=== PATIENT | female | born 1935 | race Caucasian/White ===

== ENCOUNTER 2017-03-27 19:07 | Inpatient (IN) | payer MEDICARE, BC ==
[~2017-03-27] VITALS: Ht 157.5 cm; Wt 66.0 kg
[~2017-03-27 19:07] MED LIST: ADVAIR 250-501 EACH BU; ALBUTEROL0.63 MG/3 INH; AMLODIPINE BESY10 MG PO; CALTRATE-600 W1 EAC1 PO; CLARITHROMYCIN500 MG PO; COMBIGAN EYE DRO5 ML; DOXYCYCLINE HY100 MG PO; LEVAQUIN500 MG PO; MONTELUKAST SOD10 MG PO; MULTI-DAY VITA1 EACH PO; NEXIUM40 MG PO; PREDNISONE10 M1 PO; PREDNISONE5 MG PO; PROAIR HFA INH8.5 GM INH; SYNTHROID50 MCG PO; XALATAN2.5 ML
[2017-03-27] MEDS ORDERED: ALBUTEROL SULF 0.083% NEB SOLN 3 ML NEB NEB STA (19:36)
[2017-03-27] MEDS ORDERED: SODIUM CHLORIDE 0.9% 1000ML 1,000 ML IV ONE (19:45)
[2017-03-27] MEDS ORDERED: IPRATROPIUM BROMIDE 0.02% 2.5 ML NEB NEB ONE (19:45)
[2017-03-27 20:21] LABS: BASOPHILS # (AUTO) 0.1 (0.0-0.1); BASOPHILS % 0.7 % (0.0-1.0); EOSINOPHILS # (AUTO) 0.5 (0.0-0.4); EOSINOPHILS % 5.2 % (0.0-6.0); HEMATOCRIT 39.4 % (34.2-44.1); HEMOGLOBIN 13.3 g/dL (12.0-16.0); LYMPHOCYTES # (AUTO) 1.5 (1.0-3.2); LYMPHOCYTES % 15.7 % (18.0-39.1); MEAN CORPUSCULAR HEMOGLOBIN 31.4 pg (28-32); MEAN CORPUSCULAR HGB CONC 33.8 g/dL (31-35); MEAN CORPUSCULAR VOLUME 93.1 fL (81-99); MONOCYTES # (AUTO) 1.5 (0.2-0.8); NEUTROPHILS # (AUTO) 6.2 (2.1-6.9); NEUTROPHILS % 63.1 % (38.7-80.0); PLATELET COUNT 218 x10e3/uL (140-360); RED BLOOD COUNT 4.23 x10e6/uL (3.6-5.1); RED CELL DISTRIBUTION WIDTH 14.9 % (11.7-14.4)
[2017-03-27 20:37] LABS: ALBUMIN 3.5 g/dL (3.5-5.0); ALBUMIN/GLOBULIN RATIO 0.7 (0.8-2.0); ANION GAP 13.9 mmol/L (8-16); CALCIUM 9.3 mg/dL (8.4-10.2); CREATININE, SERUM 1.71 mg/dL (0.57-1.11); POTASSIUM 3.9 mmol/L (3.5-5.1)
[2017-03-27 20:44] LABS: CREATINE KINASE MB 1.9 ng/mL (0.00-5.00); TROPONIN I 0.063 ng/mL (0-0.300)
[2017-03-27] MEDS ORDERED: METHYLPREDNISOLONE SOD SUCC 125 MG/2ML VIAL IV SCH (21:00)
--- NOTE | 2017-03-27 21:32 | Diagnostic Imaging Report ---
EXAM: CHEST SINGLE (PORTABLE), AP 1 view DATE: 03/27/2017 7:36 PM Time stamp on exam: 2024 INDICATION: Shortness of breath COMPARISON: AP view of the chest June 20, 2016 FINDINGS: LINES/TUBES: None LUNGS: Scattered bilateral reticulonodular changes. PLEURA: No effusions or pneumothorax. HEART AND MEDIASTINUM: Normal size and contour. BONES AND SOFT TISSUES: No acute findings. IMPRESSION: Nonspecific scattered bilateral reticulonodular changes. This could represent atypical infection in the appropriate clinical setting or chronic interstitial lung disease. Signed by: Dr. Sarah See M.D. on 03/27/2017 9:28 PM
[2017-03-27] MEDS: AZITHROMYCIN 500MG/SOD CHL 0.9% 250ML BAG IV SCH (22:13)
[2017-03-27] MEDS: CEFTRIAXONE SOD 1 GM VIAL IV SCH (22:13)
[2017-03-27] MEDS: SODIUM CHLORIDE 0.9% 1000ML 1,000 ML IV SCH (22:14)
[2017-03-28] VITALS (7 sets, daily range): BP systolic 137–160; BP diastolic 63–79
[2017-03-28] MEDS ORDERED: IPRATROPIUM BROMIDE 0.02% 2.5 ML NEB NEB SCH
[2017-03-28] MEDS: ALBUTEROL SULF 0.083% NEB SOLN 3 ML NEB NEB SCH ×4 (04:45→20:00)
[2017-03-28] MEDS: IPRATROPIUM BROMIDE 0.02% 2.5 ML NEB NEB SCH ×4 (04:45→20:00)
--- NOTE | 2017-03-28 06:16 | Diagnostic Imaging Report ---
EXAM: CHEST SINGLE (PORTABLE), AP 1 view DATE: 03/28/2017 5:00 AM Time stamp on exam: 0545 hours INDICATION: Pneumonia COMPARISON: AP view of the chest March 27, 2017 FINDINGS: LINES/TUBES: None LUNGS: Scattered bilateral reticulonodular changes PLEURA: No effusions or pneumothorax. HEART AND MEDIASTINUM: Normal size and contour. BONES AND SOFT TISSUES: No acute findings. IMPRESSION: No interval change. Signed by: Dr. Sarah See M.D. on 03/28/2017 6:12 AM
[2017-03-28] MEDS ORDERED: ACETAMINOPHEN 325 MG TAB PO PRN (06:45)
[2017-03-28] MEDS: SODIUM CHLORIDE 0.9% 1000ML 1,000 ML IV SCH ×2 (06:52→21:01)
[2017-03-28 07:12] LABS: TROPONIN I 0.041 ng/mL (0-0.300)
[2017-03-28] MEDS: METHYLPREDNISOLONE SOD SUCC 40 MG/ML VIAL IV SCH ×2 (09:00→21:15)
[2017-03-28] MEDS ORDERED: MINERALS PO SCH (09:00)
[2017-03-28] MEDS ORDERED: LEVOTHYROXINE SODIUM 50 MCG TAB PO SCH (09:00)
[2017-03-28] MEDS ORDERED: [UNRECOGNIZED DRUG - OTHER] PO SCH (09:00)
[2017-03-28] MEDS: AMLODIPINE BESYLATE 10 MG TAB PO SCH (09:00)
[2017-03-28] MEDS: MONTELUKAST SODIUM 10 MG TAB PO SCH (09:00)
[2017-03-28] MEDS ORDERED: VIT D3 PO SCH (09:00)
[2017-03-28] MEDS ORDERED: METHYLPREDNISOLONE SOD SUCC 125 MG/2ML VIAL IV SCH (09:00)
[2017-03-28] MEDS ORDERED: CALCIUM CARB PO SCH (09:00)
[2017-03-28] MEDS: BRIMONIDINE/TIMOLOL (OPTH SOLN 5 ML DRPETTE OP SCH ×2 (09:00→16:37)
[2017-03-28] MEDS: OYST-CAL-D 500MG TABLET PO SCH ×2 (09:00→17:00)
[2017-03-28] MEDS ORDERED: VIT D PO SCH (09:00)
[2017-03-28] MEDS: NYSTATIN SUSPENSION 5 ML UDC PO SCH (09:00)
[2017-03-28] MEDS: HEPARIN SOD (PORCINE) 5,000 UNIT/ML VIAL SC SCH ×2 (09:00→21:15)
[2017-03-28] MEDS: PANTOPRAZOLE SOD 40 MG TABEC PO SCH ×2 (09:00→17:00)
--- NOTE | 2017-03-28 09:10 | Consultation ---
DATE OF CONSULTATION: March 28, 2017 PULMONARY CONSULTATION A [facility] 81-year-old woman admitted with cough productive of white sputum and shortness of breath. She has been ill for approximately 2 weeks. Initially, improved with steroids and doxycycline, and then became worse when the cold weather came in. She has a history of COPD, history of asthma in her youth, which resolved in her 20s. She uses nocturnal oxygen. She has a history of glaucoma, history of gastroesophageal reflux disease, history of left breast cancer treated with radical mastectomy. She has a history of cholecystectomy, left knee replacement, right knee replacement, bladder suspension. She has had remote thoracentesis, left lung. She is adopted. 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 PHYSICAL EXAMINATION GENERAL: A sprightly white female in no acute distress. Looking her stated age. VITALS: Temperature 96.2, pulse 80, respirations 18, blood pressure 137/67. HEENT: Head is normocephalic and atraumatic. Eyes: Extraocular movements intact. LUNGS: Rales and rhonchi, left greater than right. HEART: Regular rhythm. ABDOMEN: Nontender. EXTREMITIES: Nonedematous. IMPRESSION 1. Acute exacerbation of chronic obstructive pulmonary disease. 2. Pneumonia, resolving. 3. Vague infiltrates noted on chest x-ray. PLAN: Taper steroids. Decrease IV fluids. Two-view chest x-ray. Continue antibiotics for typical and atypical organisms. Avoid quinolones and penicillin. She is currently tolerating cephalosporin. Thank you for this kind referral. Job#: [id number] DENISE
[2017-03-28] MEDS: SALMETEROL/FLUTICASONE 250/50 INH SCH ×2 (11:05→17:00)
[2017-03-28 16:54] LABS: TROPONIN I 0.029 ng/mL (0-0.300)
[2017-03-28] MEDS: LATANOPROST(OPTH) 2.5 ML BTL OP SCH (21:15)
[2017-03-28] MEDS: CEFTRIAXONE SOD 1 GM VIAL IV SCH (21:15)
[2017-03-28] MEDS: AZITHROMYCIN 500MG/SOD CHL 0.9% 250ML BAG IV SCH (21:45)
[2017-03-29 00:58] VITALS: BP 139/78
[2017-03-29] MEDS: ALBUTEROL SULF 0.083% NEB SOLN 3 ML NEB NEB SCH ×4 (01:47→19:30)
[2017-03-29] MEDS: IPRATROPIUM BROMIDE 0.02% 2.5 ML NEB NEB SCH ×3 (01:47→19:30)
[2017-03-29 05:16] VITALS: BP 130/77
[2017-03-29] MEDS: LEVOTHYROXINE SODIUM 50 MCG TAB PO SCH (05:51)
[2017-03-29 08:19] VITALS: BP 146/71
[2017-03-29] MEDS: METHYLPREDNISOLONE SOD SUCC 40 MG/ML VIAL IV SCH ×2 (08:31→21:19)
[2017-03-29] MEDS: SALMETEROL/FLUTICASONE 250/50 INH SCH ×2 (08:31→11:14)
[2017-03-29] MEDS: AMLODIPINE BESYLATE 10 MG TAB PO SCH (08:32)
[2017-03-29] MEDS: BRIMONIDINE/TIMOLOL (OPTH SOLN 5 ML DRPETTE OP SCH ×2 (08:32→11:14)
[2017-03-29] MEDS: NYSTATIN SUSPENSION 5 ML UDC PO SCH (08:33)
[2017-03-29] MEDS: OYST-CAL-D 500MG TABLET PO SCH ×2 (08:34→17:00)
[2017-03-29] MEDS: PANTOPRAZOLE SOD 40 MG TABEC PO SCH ×2 (08:34→17:00)
[2017-03-29] MEDS: MONTELUKAST SODIUM 10 MG TAB PO SCH (08:36)
[2017-03-29] MEDS: HEPARIN SOD (PORCINE) 5,000 UNIT/ML VIAL SC SCH ×2 (08:38→21:33)
--- NOTE | 2017-03-29 08:50 | Diagnostic Imaging Report ---
EXAMINATION: Chest, CHEST 2 VIEWS INDICATION: Chest pain COMPARISON: Portable chest 03/28/2017 FINDINGS: LINES: None. Heart: Normal cardiac silhouette. Vascular: The pulmonary vasculature is within normal limits. Atherosclerotic calcifications of the aortic arch. Mediastinum: No mediastinal, hilar, or axillary mass or lymphadenopathy. Lungs: No parenchymal mass. No focal consolidation. Bibasilar atelectasis. Pleura: No pleural effusion. No pneumothorax. Bones: No acute osseous abnormality. Degenerative changes of the thoracic spine. Soft tissues: Normal. Impression: No acute radiographic abnormality. Signed by: Dr. Jurgen Krueger M.D. on 03/29/2017 8:46 AM
[2017-03-29 11:37] VITALS: BP 152/68
[2017-03-29 16:07] VITALS: BP 134/71
[2017-03-29] MEDS: SODIUM CHLORIDE 0.9% 1000ML 1,000 ML IV SCH (17:01)
[2017-03-29 20:19] VITALS: BP 90/51
[2017-03-29] MEDS: LATANOPROST(OPTH) 2.5 ML BTL OP SCH (21:19)
[2017-03-29] MEDS: CEFTRIAXONE SOD 1 GM VIAL IV SCH (21:20)
[2017-03-29] MEDS: AZITHROMYCIN 500MG/SOD CHL 0.9% 250ML BAG IV SCH (21:20)
[2017-03-30 00:22] VITALS: BP 158/88
[2017-03-30] MEDS: ALBUTEROL SULF 0.083% NEB SOLN 3 ML NEB NEB SCH ×4 (02:45→19:30)
[2017-03-30] MEDS: IPRATROPIUM BROMIDE 0.02% 2.5 ML NEB NEB SCH ×4 (02:45→19:30)
[2017-03-30 05:24] VITALS: BP 142/75
[2017-03-30] MEDS: LEVOTHYROXINE SODIUM 50 MCG TAB PO SCH (06:29)
[2017-03-30 08:05] VITALS: BP 173/80
[2017-03-30] MEDS: METHYLPREDNISOLONE SOD SUCC 40 MG/ML VIAL IV SCH ×2 (08:53→22:10)
[2017-03-30] MEDS: NYSTATIN SUSPENSION 5 ML UDC PO SCH (08:54)
[2017-03-30] MEDS: OYST-CAL-D 500MG TABLET PO SCH ×2 (08:54→16:22)
[2017-03-30] MEDS: MONTELUKAST SODIUM 10 MG TAB PO SCH (08:54)
[2017-03-30] MEDS: BRIMONIDINE/TIMOLOL (OPTH SOLN 5 ML DRPETTE OP SCH ×2 (08:54→16:22)
[2017-03-30] MEDS: PANTOPRAZOLE SOD 40 MG TABEC PO SCH ×2 (08:54→16:22)
[2017-03-30] MEDS: HEPARIN SOD (PORCINE) 5,000 UNIT/ML VIAL SC SCH ×2 (08:54→22:11)
[2017-03-30] MEDS: AMLODIPINE BESYLATE 10 MG TAB PO SCH (08:54)
[2017-03-30] MEDS: SALMETEROL/FLUTICASONE 250/50 INH SCH ×2 (09:00→19:30)
[2017-03-30 12:00] VITALS: BP 157/72
[2017-03-30] MEDS: SODIUM CHLORIDE 0.9% 1000ML 1,000 ML IV SCH (13:07)
[2017-03-30 16:00] VITALS: BP 156/73
[2017-03-30 20:00] VITALS: BP 141/67
[2017-03-30] MEDS: CEFTRIAXONE SOD 1 GM VIAL IV SCH (22:10)
[2017-03-30] MEDS: LATANOPROST(OPTH) 2.5 ML BTL OP SCH (22:10)
[2017-03-30] MEDS: AZITHROMYCIN 500MG/SOD CHL 0.9% 250ML BAG IV SCH (22:10)
--- NOTE | 2017-03-30 22:15 | Pulmonary Function Test ---
DATE OF STUDY: March 28, 2017 Restrictive pattern. Forced vital capacity 1.35 L, 64% of predicted. FEV1 is 0.94 L, 60% of predicted. FEV1:FVC ratio 70%. FEF 25-75 is 58%. There was no improvement following inhalation of bronchodilator. Restrictive pattern. Job#: [id number] CF
[2017-03-31] VITALS: BP 154/74
[2017-03-31] MEDS: IPRATROPIUM BROMIDE 0.02% 2.5 ML NEB NEB SCH ×4 (01:08→19:42)
[2017-03-31] MEDS: ALBUTEROL SULF 0.083% NEB SOLN 3 ML NEB NEB SCH ×4 (01:08→19:42)
[2017-03-31 04:00] VITALS: BP 151/69
[2017-03-31] MEDS: LEVOTHYROXINE SODIUM 50 MCG TAB PO SCH (05:56)
[2017-03-31] MEDS: SALMETEROL/FLUTICASONE 250/50 INH SCH ×2 (07:44→19:42)
[2017-03-31 07:59] VITALS: BP 143/71
[2017-03-31 08:00] LABS: BASOPHILS % 0.1 % (0.0-1.0); HEMATOCRIT 34.6 % (34.2-44.1); HEMOGLOBIN 11.7 g/dL (12.0-16.0); LYMPHOCYTES # (AUTO) 0.6 (1.0-3.2); LYMPHOCYTES % 7.9 % (18.0-39.1); MEAN CORPUSCULAR HEMOGLOBIN 31.3 pg (28-32); MEAN CORPUSCULAR HGB CONC 33.8 g/dL (31-35); MEAN CORPUSCULAR VOLUME 92.5 fL (81-99); MONOCYTES # (AUTO) 0.4 (0.2-0.8); MONOCYTES % 5.7 % (4.4-11.3); NEUTROPHILS # (AUTO) 6.5 (2.1-6.9); NEUTROPHILS % 85.6 % (38.7-80.0); PLATELET COUNT 165 x10e3/uL (140-360); RED BLOOD COUNT 3.74 x10e6/uL (3.6-5.1)
[2017-03-31 08:10] LABS: ANION GAP 8.6 mmol/L (8-16); CALCIUM 8.6 mg/dL (8.4-10.2); CREATININE, SERUM 1.18 mg/dL (0.57-1.11); POTASSIUM 3.6 mmol/L (3.5-5.1)
[2017-03-31] MEDS: SODIUM CHLORIDE 0.9% 1000ML 1,000 ML IV SCH (09:01)
[2017-03-31] MEDS: NYSTATIN SUSPENSION 5 ML UDC PO SCH (10:07)
[2017-03-31] MEDS: OYST-CAL-D 500MG TABLET PO SCH ×2 (10:07→16:24)
[2017-03-31] MEDS: AMLODIPINE BESYLATE 10 MG TAB PO SCH (10:07)
[2017-03-31] MEDS: METHYLPREDNISOLONE SOD SUCC 40 MG/ML VIAL IV SCH ×2 (10:07→21:00)
[2017-03-31] MEDS: MONTELUKAST SODIUM 10 MG TAB PO SCH (10:07)
[2017-03-31] MEDS: PANTOPRAZOLE SOD 40 MG TABEC PO SCH ×2 (10:07→16:24)
[2017-03-31] MEDS: BRIMONIDINE/TIMOLOL (OPTH SOLN 5 ML DRPETTE OP SCH ×2 (10:07→16:24)
[2017-03-31] MEDS: HEPARIN SOD (PORCINE) 5,000 UNIT/ML VIAL SC SCH ×2 (10:09→21:00)
[2017-03-31 11:39] VITALS: BP 159/76
--- NOTE | 2017-03-31 15:14 | Diagnostic Imaging Report ---
PROCEDURE:CHEST SINGLE (PORTABLE) TECHNIQUE:Portable AP chest INDICATION:Shortness of breath with left-sided chest pain. COMPARISON:Patients [facility], DX, CHEST 2 VIEWS, 03/29/2017, 6:26. FINDINGS: Lungs are clear and symmetrically inflated. No pleural effusions. Prominent cardiac silhouette for technique with enlarged central vasculature and trace central parabronchial cuffing. Intact skeleton. CONCLUSION: Borderline cardiomegaly with mild central vascular congestion. Dictated by: Tobias Naranjo M.D. on 03/31/2017 at 15:21 Electronically approved by: Tobias Naranjo M.D. on 03/31/2017 at 15:21
[2017-03-31 16:08] VITALS: BP 155/73
[2017-03-31 20:00] VITALS: BP 131/71
[2017-03-31] MEDS: LATANOPROST(OPTH) 2.5 ML BTL OP SCH (21:00)
[2017-03-31] MEDS: CEFTRIAXONE SOD 1 GM VIAL IV SCH (21:45)
[2017-03-31] MEDS: AZITHROMYCIN 500MG/SOD CHL 0.9% 250ML BAG IV SCH (21:45)
[2017-04-01] VITALS: BP 157/86
[2017-04-01] MEDS: IPRATROPIUM BROMIDE 0.02% 2.5 ML NEB NEB SCH ×3 (01:10→14:00)
[2017-04-01] MEDS: ALBUTEROL SULF 0.083% NEB SOLN 3 ML NEB NEB SCH ×3 (01:10→14:00)
[2017-04-01 04:00] VITALS: BP 146/91
[2017-04-01] MEDS: SODIUM CHLORIDE 0.9% 1000ML 1,000 ML IV SCH (05:01)
[2017-04-01] MEDS: LEVOTHYROXINE SODIUM 50 MCG TAB PO SCH (06:00)
[2017-04-01] MEDS: SALMETEROL/FLUTICASONE 250/50 INH SCH ×2 (07:33→17:00)
[2017-04-01 08:00] VITALS: BP 148/72
[2017-04-01] MEDS: BRIMONIDINE/TIMOLOL (OPTH SOLN 5 ML DRPETTE OP SCH ×2 (09:00→17:00)
[2017-04-01] MEDS: NYSTATIN SUSPENSION 5 ML UDC PO SCH (09:00)
[2017-04-01] MEDS: OYST-CAL-D 500MG TABLET PO SCH ×2 (09:00→17:00)
[2017-04-01] MEDS: MONTELUKAST SODIUM 10 MG TAB PO SCH (09:00)
[2017-04-01] MEDS: METHYLPREDNISOLONE SOD SUCC 40 MG/ML VIAL IV SCH (09:00)
[2017-04-01] MEDS: PANTOPRAZOLE SOD 40 MG TABEC PO SCH (09:00)
[2017-04-01] MEDS: AMLODIPINE BESYLATE 10 MG TAB PO SCH (09:00)
[2017-04-01] MEDS: HEPARIN SOD (PORCINE) 5,000 UNIT/ML VIAL SC SCH (12:08)
[2017-04-01 13:28] VITALS: BP 134/78
[2017-04-01 17:13] VITALS: BP 143/83
== END 2017-04-01 17:40 | disposition home or self-care (01) | DRG 190 ==
LOC: ER 19:07 → MED/SURG3 22:22
PROVIDERS: ADMIT Family Medicine; ATTEND Family Medicine
DX: J44.0 Chronic obstructive pulmonary disease with (acute) lower respiratory infection (principal); J18.9 Pneumonia, unspecified organism; J44.1 Chronic obstructive pulmonary disease with (acute) exacerbation; I12.9 Hypertensive chronic kidney disease with stage 1 through stage 4 chronic kidney disease, or unspecified chronic kidney disease; N18.3 Chronic kidney disease, stage 3 (moderate); K21.9 Gastro-esophageal reflux disease without esophagitis; H40.9 Unspecified glaucoma; Z96.653 Presence of artificial knee joint, bilateral
CPT/HCPCS: 36415; 71010; 71020; 80048; 80053; 82550; 82553; 83880; 84484; 85025; 87040; 93005; 94010; 94640; 96360; 96361; 96365; 96367; 96372; 96374; 96375; 96376; 97139; 99284; J0456; J0696; J1644; J2920; J2930; J7030

== ENCOUNTER 2017-08-12 04:52 | Inpatient (IN) | payer MEDICARE, BC ==
[~2017-08-12] VITALS: Ht 157.5 cm; Wt 66.4 kg
[2017-08-12] VITALS (36 sets, daily range): BP systolic 78–135; BP diastolic 50–90
--- OUTSIDE RECORDS SUMMARY | 2017-08-12 04:55 | XMS REPORT ---
Author Author [facility] Address Unknown Phone Unavailable Care Team Providers Care Levelman Name Role Phone LIZ ABARCA Unavailable Unavailable Problems This patient has no known problems. Allergies, Adverse Reactions, Alerts This patient has no known allergies or adverse reactions. Medications This patient has no known medications. Results Test Description Test Time Test Comments Text Results Atomic Results Result Comments CHEST SINGLE (PORTABLE) [facility] [address] [place] [address] Patient Name: PAXTON SWAIN MR #: [id number] : 1935 Age/Sex: 81/F Req #: [id number] Adm Physician: LIZ ABARCA MD Ordered by: LIZ ABARCA MD Report #: [id number] Location: MED/SURG3 Room/Bed: 2931 Procedure: [id number] DX/CHEST SINGLE (PORTABLE) Exam Date: 03/31/17 Exam Time: 1444 REPORT STATUS: Signed PROCEDURE: CHEST SINGLE (PORTABLE) TECHNIQUE: Portable AP chest INDICATION: Shortness of breath with left-sided chest pain. COMPARISON: [facility], DX, CHEST 2 VIEWS, 03/29/2017, 6:26. FINDINGS: Lungs are clear and symmetrically inflated. No pleural effusions. Prominent cardiac silhouette for technique with enlarged central vasculature and trace central parabronchial cuffing. Intact skeleton. CONCLUSION: Borderline cardiomegaly with mild central vascular congestion. Dictated by: Tevin Naranjo M.D. on 03/31/2017 at 15:21 Electronically approved by: Tevin Naranjo M.D. on 03/31/2017 at 15: 21 Dictated By: TEVIN NARANJO MD 1521 Transcribed By: ROXANA on 03/31/17 1521 COPY TO: LIZ ABARCA MD CHEST 2 VIEWS [place] [address] Patient Name: PAXTON SWAIN MR #: [id number] : 1935 Age/Sex: 81/F Req # : [id number] Adm Physician: LIZ ABARCA MD Ordered by: JENNIFER LOGAN MD Report #: [id number] Location: [facility] Room/Bed: [facility] _ Procedure: [id number] DX/CHEST 2 VIEWS Exam Date: 03/29/17 Exam Time: 0620 REPORT STATUS: Signed EXAMINATION: Chest, CHEST 2 VIEWS INDICATION: Chest pain COMPARISON: Portable chest 03/28/2017 FINDINGS: LINES: None. Heart: Normal cardiac silhouette. Vascular: The pulmonary vasculature is within normal limits. Atherosclerotic calcifications of the aortic arch. Mediastinum: No mediastinal, hilar, or axillary mass or lymphadenopathy. Lungs: No parenchymal mass. No focal consolidation. Bibasilar atelectasis. Pleura: No pleural effusion. No pneumothorax. Bones: No acute osseous abnormality. Degenerative changes of the thoracic spine. Soft tissues: Normal. Impression: No acute radiographic abnormality. Signed by: Dr. Danae Villalta M.D. on 03/29/2017 8:46 AM Dictated By: DANAE VILLALTA MD 5 Transcribed By: BRIANA on 03/29/17845 COPY TO: JENNIFER LOGAN MD CHEST SINGLE (PORTABLE) [place] [address] Patient Name: PAXTON SWAIN MR #: [id number] : 1935 Age/Sex: 81/F Req #: [id number] Adm Physician: LIZ ABARCA MD Ordered by: WESLEY MEJIAS MD Report #: [id number] Location: MED/SURG3 Room/Bed: [facility] Procedure: [id number] DX/CHEST SINGLE (PORTABLE) Exam Date: Exam Time: REPORT STATUS: Signed EXAM: CHEST SINGLE (PORTABLE), AP 1 view DATE: 03/28/2017 5:00 AM Time stamp on exam: 0545 hours INDICATION: Pneumonia COMPARISON: AP view of the chest March 27, 2017 FINDINGS: LINES/TUBES: None LUNGS: Scattered bilateral reticulonodular changes PLEURA: No effusions or pneumothorax. HEART AND MEDIASTINUM: Normal size and contour. BONES AND SOFT TISSUES: No acute findings. IMPRESSION: No interval change. Signed by: Dr. Bessie See M.D. on 03/28/2017 6:12 AM Dictated By: BESSIE SEE MD 1 COPY TO: WESLEY MEJIAS MD CHEST SINGLE (PORTABLE) [place] [address] Patient Name: PAXTON SWAIN MR #: [id number] : 1935 Age/Sex: 81/F Req #: [id number] [facility] Physician: Ordered by: WESLEY MEJIAS MD Report #: [id number] Location: ER Room/Bed: ___ Procedure: [id number] DX/CHEST SINGLE (PORTABLE) Exam Date: 03/27/17 Exam Time: 2024 REPORT STATUS: Signed EXAM: CHEST SINGLE (PORTABLE), AP 1 view DATE: 03/27/2017 7:36 PM Time stamp on exam : 2024 INDICATION: Shortness of breath COMPARISON: AP view of the chest June 20, 2016 FINDINGS: LINES/TUBES: None LUNGS: Scattered bilateral reticulonodular changes. PLEURA: No effusions or pneumothorax. HEART AND MEDIASTINUM: Normal size and contour. BONES AND SOFT TISSUES : No acute findings. IMPRESSION: Nonspecific scattered bilateral reticulonodular changes. This could represent atypical infection in the appropriate clinical setting or chronic interstitial lung disease. Signed by: Dr. Bessie See M.D. on 03/27/2017 9:28 PM Dictated By: BESSIE SEE MD 27 COPY TO: WESLEY MEJIAS MD
[2017-08-12] MEDS ORDERED: IPRATROPIUM BROMIDE 0.02% 2.5 ML NEB NEB ONE (05:30)
[2017-08-12] MEDS ORDERED: SODIUM CHLORIDE 0.9% 500ML 500 ML IV ONE (05:30)
[2017-08-12] MEDS ORDERED: LEVALBUTEROL HCL SOLN NEBU 1.25 MG/3 ML NEB INH ONE (05:30)
[2017-08-12] MEDS: CEFEPIME HCL 2 GM VIAL IV SCH ×2 (06:00→17:53)
[2017-08-12] MEDS ORDERED: PROPOFOL IV EMULSION 10MG/ML 100 ML ONE ×2 (06:00)
[2017-08-12] MEDS: PROPOFOL IV EMULSION 10MG/ML 100 ML IV PRN ×2 (06:00→09:57)
[2017-08-12 06:04] LABS: BASOPHILS # (AUTO) 0.1 (0.0-0.1); BASOPHILS % 0.6 % (0.0-1.0); EOSINOPHILS # (AUTO) 0.5 (0.0-0.4); EOSINOPHILS % 5.2 % (0.0-6.0); HEMATOCRIT 39.2 % (34.2-44.1); HEMOGLOBIN 12.7 g/dL (12.0-16.0); LYMPHOCYTES # (AUTO) 2.4 (1.0-3.2); LYMPHOCYTES % 24.8 % (18.0-39.1); MEAN CORPUSCULAR HEMOGLOBIN 30.6 pg (28-32); MEAN CORPUSCULAR HGB CONC 32.4 g/dL (31-35); MEAN CORPUSCULAR VOLUME 94.5 fL (81-99); MONOCYTES # (AUTO) 0.6 (0.2-0.8); MONOCYTES % 6.1 % (4.4-11.3); NEUTROPHILS # (AUTO) 6.1 (2.1-6.9); NEUTROPHILS % 63.1 % (38.7-80.0); PLATELET COUNT 235 x10e3/uL (140-360); RED BLOOD COUNT 4.15 x10e6/uL (3.6-5.1); RED CELL DISTRIBUTION WIDTH 15.5 % (11.7-14.4)
[2017-08-12 06:17] LABS: ALBUMIN 3.3 g/dL (3.5-5.0); ALBUMIN/GLOBULIN RATIO 0.6 (0.8-2.0); ANION GAP 13.4 mmol/L (8-16); CALCIUM 9.7 mg/dL (8.4-10.2); CREATININE, SERUM 1.64 mg/dL (0.57-1.11); MAGNESIUM 2.3 MG/DL (1.3-2.1); POTASSIUM 4.4 mmol/L (3.5-5.1)
[2017-08-12 06:23] LABS: CREATINE KINASE MB 1.8 ng/mL (0-5.0)
[2017-08-12] MEDS: AZITHROMYCIN 500MG/NS 250 ML 250 ML IV SCH ×2 (06:30→07:00)
[2017-08-12 06:35] LABS: B-TYPE NATRIURETIC PEPTIDE2 103.4 pg/mL (0-100)
[2017-08-12 06:53] LABS: BILIRUBIN,URINE NEGATIVE (NEGATIVE); CLARITY,URINE CLEAR (CLEAR); COLOR,URINE STRAW (YELLOW); KETONES,URINE NEGATIVE (NEGATIVE); LEUKOCYTE ESTERASE ,URINE TRACE (NEGATIVE); NITRITE,URINE NEGATIVE (NEGATIVE); PROTEIN,URINE DIPSTICK 2+ (NEGATIVE); URINE UROBILINOGEN 0.2 mg/dL (0.2 - 1)
--- NOTE | 2017-08-12 06:53 | Diagnostic Imaging Report ---
EXAMINATION: CHEST SINGLE (PORTABLE) INDICATION: Respiratory distress COMPARISON: 03/31/2017 FINDINGS: TUBES and LINES: Interval placement of endotracheal tube with distal tip at 4.5 cm above the becca LUNGS: Lungs are well inflated. Bibasilar linear opacities may represent aspiration or atelectasis. There is mild prominence of the central pulmonary vasculature, consistent with pulmonary venous congestion. PLEURA: No pleural effusion or pneumothorax. HEART AND MEDIASTINUM: The cardiomediastinal silhouette is unremarkable. There are atherosclerotic calcifications within the aorta. BONES AND SOFT TISSUES: No acute osseous lesion. Soft tissues are unremarkable. UPPER ABDOMEN: No free air under the diaphragm. IMPRESSION: 1. Scattered opacities in the lung bases may represent aspiration or atelectasis 2. Endotracheal tube in good position. Signed by: Dr. Chapin Dhillon M.D. on 08/12/2017 6:50 AM
[2017-08-12 06:56] LABS: INR 1.09; PROTHROMBIN TIME 13.3 seconds (11.9-14.5)
[2017-08-12 06:57] LABS: PARTIAL THROMBOPLASTIN TIME 30.7 seconds (23.8-35.5)
[2017-08-12] MEDS ORDERED: PROPOFOL IV EMULSION 10 MG/ML 50 ML VIAL IV PRN (07:15)
[2017-08-12 07:23] LABS: RBC,URINE 0-5 /HPF (0-5); WBC,URINE (MAN) 0-5 /HPF (0-5)
[2017-08-12 07:35] LABS: ABG HCO3 20 mmol/L (23-28); ABG PCO2 62 mmHg (41-51); ABG PH 7.13 (7.31-7.41); ABG PO2 173 mmHg (80-105)
[2017-08-12] MEDS ORDERED: ONDANSETRON HCL INJ 2 MG/ML VIAL IV PRN (08:00)
[2017-08-12] MEDS ORDERED: DEXTROSE 50% SYRINGE 50 ML IV PRN (08:00)
[2017-08-12] MEDS: CLINDAMYCIN PHOS 900MG/ D5W 50 50 ML IV SCH ×4 (08:23→22:00)
[2017-08-12] MEDS: SODIUM CHLORIDE 0.9% 1000ML 1,000 ML IV SCH ×2 (09:00→19:04)
[2017-08-12] MEDS ORDERED: MIDAZOLAM HCL 25 MG in DEXTROSE 5% 50ML 45 ML IV PRN (09:00)
[2017-08-12 09:49] LABS: FREE THYROXINE INDEX 2.1954 (1.4-3.8); THYROID STIMULATING HORMONE 1.862 uIU/mL (0.350-4.940)
[2017-08-12] MEDS: HEPARIN SOD (PORCINE) 5,000 UNIT/ML VIAL SC SCH ×2 (10:00→21:06)
[2017-08-12] MEDS: PANTOPRAZOLE 40 MG 10ML VIAL IV SCH (10:00)
--- NOTE | 2017-08-12 10:23 | Consultation ---
DATE OF CONSULTATION: August 12, 2017 PULMONARY CONSULTATION This is a patient of Dr. Jared Collado. This charming, but unfortunate, 82-year-old woman was admitted with fever, cough, shortness of breath, progressive respiratory failure. She is intubated in the emergency room because of hypoxia and failure of BiPAP. ALLERGIES: PENICILLIN, CIPRO AND LEVAQUIN. MEDICATIONS: Include albuterol, Advair, Norvasc, Combigan, latanoprost, doxycycline, Levoxyl, montelukast, calcium with vitamin D, Nexium. PAST MEDICAL HISTORY: There is a history of asthma. History of breast cancer. She uses nocturnal oxygen. She has a history of glaucoma on drops. History of gastroesophageal reflux. She has had gallbladder surgery, knee replacements, radical mastectomy of left breast, bladder surgery, left knee replacement, remote thoracentesis of left lung. 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 FAMILY HISTORY: She is adopted. PHYSICAL EXAMINATION GENERAL: Slight white female, awake, alert, intubated. Nods her head appropriately with regard to questions. VITALS: Temperature 99.7, pulse 84, respirations 16, blood pressure 105/74. HEENT: Head is normocephalic and atraumatic. Edentulous. LUNGS: Bilateral rhonchi. HEART: Regular rhythm. ABDOMEN: Nontender. EXTREMITIES: Not edematous. IMPRESSION: Pneumonia, possible aspiration though the patient denies vomiting. PLAN: Empiric antibiotics. Continue ventilator support as the patient failed BiPAP. Decrease tidal volume as tolerated. Patient was in respiratory failure with pACO2 of 63, pH 7.13. Moderate dose of steroids. Monitor blood sugars. Resume home medications as tolerated. Bronchodilators and empiric antibiotics. Thank you for this kind referral. Job#: [id number]
[2017-08-12 10:28] LABS: ABG HCO3 19 mmol/L (23-28); ABG PCO2 39 mmHg (41-51); ABG PO2 180 mmHg (80-105)
[2017-08-12] MEDS: IPRATROPIUM BROMIDE 0.02% 2.5 ML NEB NEB SCH ×2 (11:39→19:25)
[2017-08-12] MEDS: INSULIN REGULAR, HUMAN 100 UNIT/1 ML 3ML VIAL SQ SCH ×2 (12:00→18:00)
[2017-08-12 13:22] LABS: ABG HCO3 20 mmol/L (23-28); ABG PCO2 48 mmHg (41-51); ABG PH 7.23 (7.31-7.41); ABG PO2 132 mmHg (80-105)
[2017-08-12] MEDS: ALBUTEROL SULF 0.083% NEB SOLN 3 ML NEB NEB SCH ×4 (15:00→23:20)
[2017-08-12] MEDS ORDERED: ONDANSETRON HCL 4 MG ORAL DISINTEGRATING TAB SL PRN (15:15)
[2017-08-12 15:25] LABS: CREATINE KINASE MB 7.6 ng/mL (0-5.0)
[2017-08-12] MEDS ORDERED: ENOXAPARIN SODIUM INJ 100 MG/ML SYR SC STA (15:41)
--- NOTE | 2017-08-12 15:45 | Diagnostic Imaging Report ---
EXAM: PERFUSION LUNG SCAN INDICATION: 82 F with COPD exacerbation during 2-day road trip COMPARISON: Chest radiograph 08/12/2017 DISCUSSION: Ventilation study was not performed because patient on ventilator. Perfusion images of the lungs in multiple projections were obtained following intravenous administration of 6.0 mCi of Tc-99m MAA. Distribution of tracer very throughout the lungs, however, there are no segmental perfusion defects of any size. The cardiac silhouette is unremarkable. IMPRESSION: 1. Scan findings represent a LOW probability for acute pulmonary embolic disease based on the PIOPED II criteria. Ventilation study would not alter this probability. 2. Scan findings are compatible with diffuse obstructive lung disease; parenchymal lung disease may also be present. Signed by: Dr. Caitlin Whaley M.D. on 08/12/2017 3:42 PM
--- NOTE | 2017-08-12 16:22 | Diagnostic Imaging Report ---
PROCEDURE:X-RAY ABDOMEN - KUB COMPARISON:None. INDICATIONS:OG TUBE PLACEMENT TODAY FINDINGS: NG tube extends below the diaphragm and out of the field of view. There is a non-obstructed bowel-gas pattern. There are no calcifications projected over the renal shadows, expected course of the ureters or bladder. There are no acute osseous abnormalities. The left lung base reveals a small pleural effusion. CONCLUSION: NG tube as described above. Hugo Miller D.O. Dictated by: Hugo Miller D.O. on 08/12/2017 at 16:23 Electronically approved by: Hugo Miller D.O. on 08/12/2017 at 16:23
[2017-08-12] MEDS ORDERED: BRIMONIDINE/TIMOLOL (OPTH SOLN 5 ML DRPETTE OP SCH (17:00)
[2017-08-12] MEDS ORDERED: METHYLPREDNISOLONE SOD SUCC 40 MG/ML VIAL IV SCH (17:00)
[2017-08-12] MEDS ORDERED: ALBUTEROL SULFATE HFA 8GM INHALATION AEROSOL INH PRN (17:30)
[2017-08-12] MEDS ORDERED: FUROSEMIDE INJ 10 MG/ML 2 ML VIAL IV ONE (17:30)
[2017-08-12] MEDS ORDERED: FUROSEMIDE INJ 10 MG/ML 2 ML VIAL ONE (17:47)
[2017-08-12] MEDS ORDERED: CLOPIDOGREL BISULFATE 75 MG TAB PO ONE (18:15)
[2017-08-12] MEDS ORDERED: SALMETEROL/FLUTICASONE 250/50 INH SCH (19:00)
[2017-08-12] MEDS ORDERED: BALSAM PERU/CASTOR OIL 60 GM OINT...G. TP PRN (19:15)
[2017-08-12] MEDS: DOXYCYCLINE HYCLATE TABLET 100 MG TAB PO SCH (21:03)
[2017-08-12] MEDS: LATANOPROST(OPTH) 2.5 ML BTL OP SCH (21:04)
[2017-08-12] MEDS: MORPHINE SULFATE 2 MG/ML SYR IV PRN (21:10)
--- NOTE | 2017-08-12 21:36 | Consultation ---
DATE OF CONSULTATION: August 12, 2017 CARDIAC CONSULTATION REASON FOR THE CONSULTATION: Respiratory failure, elevated troponin. SOURCE OF INFORMATION: Medical record, nursing staff, patient's daughter at bedside. HISTORY: This is an unfortunate lady who is known with long-standing history of lung disease. Her lung disease started many years ago when she was a child. She had collapsed lung when she was a child. Since that time, she is having weak lungs. She smoked for 35 years. As per record, patient had several admissions in the past with exacerbation of severe COPD. She is maintained on treatment by Dr. Collado and pulmonary services. She was recently traveling to visit family in [place]. She went on the bus. It was very long trip. She was having worsening shortness of breath she saw her physician, she got medication, however, her condition continued to deteriorate, she came to the emergency room. She was hypercapnic. Her pCO2 on the ABG showed pH of 7.32, pCO2 of 62, pO2 of 173. She was placed initially on BiPAP. Her condition continued to deteriorate, she became very ill, she needed to be intubated and placed on ventilator. Of interest, on admission her cardiac enzymes were normal. Her BNP was at 103. Repeat cardiac enzymes showed MB increased to 7.6 and troponin to 2.3. Her EKG when she came to the emergency room showed wide QRS complex with LVH and bundle-branch block and nonspecific intraventricular conduction block with a lot of artifact. Following intubation, patient seems to be stabilized. She had episode of transient hypotension. She was very ill apparently. An echocardiogram was done questionable timing to the intubation and questionable timing after the acute illness, which showed severe left ventricular dysfunction, the ventricle is having severe generalized hypokinesis, ejection fraction in the 20s. As per family, patient does not have history of heart failure. REVIEW OF SYSTEMS: Unable to get. SOCIAL HISTORY: She lives by herself. She stopped smoking 35 years ago. HOME MEDICATIONS: Includes medication for glaucoma eyedrops, hypertension medications amlodipine, Singulair, several courses of inhalers and other p.r.n. medications. Following admission, patient is on azithromycin, clindamycin, cefepime, Synthroid. ALLERGIES: NONE. PAST MEDICAL HISTORY: 1. During childhood, patient had collapsed lung and long-standing history of asthma and COPD. 2. Smoked for 35 years, but stopped many years ago. 3. Left mastectomy. 4. Glaucoma. 5. GERD. 6. Cholecystectomy. 7. Bilateral knee replacement. 8. Bladder suspension surgery. FAMILY HISTORY: Patient is adopted. SOCIAL HISTORY: The patient lives by herself. She stopped smoking many years ago. She does not drink alcohol. PHYSICAL EXAMINATION: VITAL SIGNS: Height of 5 feet 3 inches, weight of 133 pounds, blood pressure 90/60, heart rate of 60. Patient is intubated on ventilator. NECK: No elevation of jugular venous pulsation. CHEST: Decreased air entry, both bases with crackles. Increased expiratory phase. HEART: PMI at fifth left intercostal space. Normal first and second heart sounds. ABDOMEN: Soft with good bowel sounds. EXTREMITIES: No cyanosis, no clubbing. Edema is noted. NEUROLOGIC: Patient is sedated on ventilator. LAB DATA: White blood cell count of 9.6, hemoglobin 12.7, hematocrit 39%, platelet count of 155,000. The ABG on BiPAP showed pH of 7.13, pCO2 of 62, pO2 of 173. TSH of 1.86. CKs are normal. MB 1.8 on admission, second set at 7.6. Troponin of 0.019, second set 2.3. BUN of 21, creatinine of 1.64. PT of 13 seconds, PTT of 31 seconds. D-dimer is 884. V/Q scan showing very bad lungs, but low probability of PE. IMPRESSION AND PLAN: 1. Respiratory failure, most likely secondary to advanced lung disease. 2. Elevated D-dimer. Ventilation/perfusion lung scan, low probability, recent trouble. Patient needs to be anticoagulated. In fact, she received 100 mg of Lovenox in emergency room. 3. Elevated troponin, anu-KF-naonafnhr myocardial infarction, possible demand, possible underlying heart disease. 4. B-type natriuretic peptide on admission of 100, but severe left ventricular dysfunction by echocardiogram, increased probability. This hopefully is an acute event secondary to respiratory distress and metabolic derangement. 5. Very abnormal electrocardiogram with junctional escape rhythm. Cardiac-toure, patient already anticoagulated. Will avoid all beta tomasz because of the lung condition and more importantly its junctional risk. Will give Lovenox. Will check venous Doppler for deep venous thrombosis. Supportive care to be done. Will follow patient progression with you. Pending on her course, further steps to be taken. Long visit with the family. Job#: [id number]
[2017-08-12] MEDS: NOREPINEPHRINE 8 MG/D5W 250 ML 250 ML IV PRN (22:30)
[2017-08-13] VITALS (94 sets, daily range): BP systolic 96–150; BP diastolic 51–80
[2017-08-13] MEDS: MORPHINE SULFATE 2 MG/ML SYR IV PRN ×2 (00:20→03:44)
--- NOTE | 2017-08-13 00:39 | Diagnostic Imaging Report ---
EXAMINATION: CHEST XRAY LINE PLACEMENT INDICATION: PICC line placement. COMPARISON: 03/28/2017 FINDINGS: TUBES and LINES: Endotracheal tube is visualized in good position overlying the distal trachea 2.5 cm above the becca. Interval placement of right upper extremity PICC line with tip at the level of the distal SVC. LUNGS: Lungs are not well inflated. There are bibasilar, scattered opacities again suspicious for aspiration versus atelectasis. There is mild prominence of the central pulmonary vasculature, consistent with pulmonary venous congestion. PLEURA: No pleural effusion or pneumothorax. HEART AND MEDIASTINUM: The cardiomediastinal silhouette is unremarkable. There are atherosclerotic calcifications within the aorta. BONES AND SOFT TISSUES: No acute osseous lesion. Soft tissues are unremarkable. UPPER ABDOMEN: No free air under the diaphragm. IMPRESSION: 1. Stable opacities in the lung bases may represent aspiration or atelectasis 2. Endotracheal tube and right upper extremity PICC line in good position Signed by: Dr. Chapin Dhillon M.D. on 08/13/2017 12:35 AM
[2017-08-13] MEDS: ALBUTEROL SULF 0.083% NEB SOLN 3 ML NEB NEB SCH ×6 (02:20→19:45)
[2017-08-13] MEDS: IPRATROPIUM BROMIDE 0.02% 2.5 ML NEB NEB SCH ×4 (02:20→19:45)
[2017-08-13] MEDS: MIDAZOLAM HCL 25 MG in SODIUM CHLORIDE 0.9% 50ML 45 ML IV PRN ×3 (02:47→09:14)
--- NOTE | 2017-08-13 05:27 | Diagnostic Imaging Report ---
EXAMINATION: CHEST SINGLE (PORTABLE) INDICATION: Intubated patient COMPARISON: 08/13/2017 at 0027 hours FINDINGS: TUBES and LINES: Endotracheal tube is visualized in good position overlying the distal trachea 2.5 cm above the becca. Right upper extremity PICC line with tip at the level of the distal SVC. LUNGS: There are bibasilar, scattered opacities again suspicious for aspiration versus atelectasis. There is perihilar interstitial opacities, consistent with interstitial edema. PLEURA: No pleural effusion or pneumothorax. HEART AND MEDIASTINUM: The cardiomediastinal silhouette is unremarkable. There are atherosclerotic calcifications within the aorta. BONES AND SOFT TISSUES: No acute osseous lesion. Soft tissues are unremarkable. UPPER ABDOMEN: No free air under the diaphragm. IMPRESSION: 1. Worsening central vascular congestion with now interlobular septi thickening compatible with fluid overload 2. Endotracheal tube and right upper extremity PICC line in good position Signed by: Dr. Chapin Dhillon M.D. on 08/13/2017 5:22 AM
[2017-08-13] MEDS: INSULIN REGULAR, HUMAN 100 UNIT/1 ML 3ML VIAL SQ SCH ×4 (06:00→17:48)
[2017-08-13] MEDS: CEFEPIME HCL 2 GM VIAL IV SCH ×2 (06:06→17:18)
[2017-08-13] MEDS: SODIUM CHLORIDE 0.9% 1000ML 1,000 ML IV SCH ×2 (06:09→06:43)
[2017-08-13] MEDS: CLINDAMYCIN PHOS 900MG/ D5W 50 50 ML IV SCH ×3 (06:43→22:00)
[2017-08-13 06:51] LABS: BASOPHILS % 0.2 % (0.0-1.0); HEMATOCRIT 32.7 % (34.2-44.1); HEMOGLOBIN 10.9 g/dL (12.0-16.0); LYMPHOCYTES # (AUTO) 0.9 (1.0-3.2); LYMPHOCYTES % 7.7 % (18.0-39.1); MEAN CORPUSCULAR HEMOGLOBIN 31.2 pg (28-32); MEAN CORPUSCULAR HGB CONC 33.3 g/dL (31-35); MEAN CORPUSCULAR VOLUME 93.7 fL (81-99); MONOCYTES # (AUTO) 0.6 (0.2-0.8); MONOCYTES % 4.9 % (4.4-11.3); NEUTROPHILS # (AUTO) 9.8 (2.1-6.9); NEUTROPHILS % 86.8 % (38.7-80.0); PLATELET COUNT 143 x10e3/uL (140-360); RED BLOOD COUNT 3.49 x10e6/uL (3.6-5.1)
[2017-08-13 07:22] LABS: ALBUMIN 2.4 g/dL (3.5-5.0); ALBUMIN/GLOBULIN RATIO 0.5 (0.8-2.0); ANION GAP 11.6 mmol/L (8-16); CALCIUM 8.4 mg/dL (8.4-10.2); CREATININE, SERUM 1.9 mg/dL (0.57-1.11); POTASSIUM 4.6 mmol/L (3.5-5.1)
[2017-08-13 07:43] LABS: THYROID STIMULATING HORMONE 0.54 uIU/mL (0.350-4.940)
[2017-08-13] MEDS ORDERED: CALCIUM CARB PO SCH (09:00)
[2017-08-13] MEDS ORDERED: LEVOTHYROXINE SODIUM 50 MCG TAB PO SCH (09:00)
[2017-08-13] MEDS ORDERED: VIT D3 PO SCH (09:00)
[2017-08-13] MEDS ORDERED: AMLODIPINE BESYLATE 10 MG TAB PO SCH (09:00)
[2017-08-13] MEDS ORDERED: MULTIVITAMIN PO SCH (09:00)
[2017-08-13] MEDS ORDERED: PANTOPRAZOLE SOD 40 MG TABEC PO SCH (09:00)
[2017-08-13] MEDS ORDERED: [UNRECOGNIZED DRUG - OTHER] PO SCH (09:00)
[2017-08-13] MEDS ORDERED: VIT D PO SCH (09:00)
[2017-08-13] MEDS ORDERED: MINERALS PO SCH (09:00)
[2017-08-13] MEDS: PANTOPRAZOLE 40 MG 10ML VIAL IV SCH (09:10)
[2017-08-13] MEDS: AZITHROMYCIN 500MG/NS 250 ML 250 ML IV SCH (09:11)
[2017-08-13] MEDS: MULTIVITAMINS/MINERALS TAB PO SCH (09:11)
[2017-08-13] MEDS: DOXYCYCLINE HYCLATE TABLET 100 MG TAB PO SCH ×2 (09:12→21:00)
[2017-08-13] MEDS: CLOPIDOGREL BISULFATE 75 MG TAB PO SCH (09:12)
[2017-08-13] MEDS: METHYLPREDNISOLONE SOD SUCC 40 MG/ML VIAL IV SCH ×2 (09:12→17:17)
[2017-08-13] MEDS: OYST-CAL-D 500MG TABLET PO SCH ×2 (09:12→17:17)
[2017-08-13] MEDS: HEPARIN SOD (PORCINE) 5,000 UNIT/ML VIAL SC SCH ×2 (09:13→21:00)
[2017-08-13] MEDS: BRIMONIDINE/TIMOLOL (OPTH SOLN 5 ML DRPETTE OP SCH ×2 (09:30→17:17)
[2017-08-13] MEDS: NOREPINEPHRINE 8 MG/D5W 250 ML 250 ML IV PRN (10:00)
[2017-08-13] MEDS ORDERED: ATROPINE SULFATE 0.1 MG/ML 10ML SYR ONE (10:32)
[2017-08-13 14:11] LABS: ABG HCO3 16 mmol/L (23-28); ABG PCO2 34 mmHg (41-51); ABG PH 7.29 (7.31-7.41); ABG PO2 109 mmHg (80-105)
[2017-08-13] MEDS: CITRIC ACID/SODIUM CITRATE 30 ML UDC PO SCH ×2 (15:15→21:00)
[2017-08-13] MEDS: MONTELUKAST SODIUM 10 MG TAB PO SCH (17:37)
[2017-08-13] MEDS: LATANOPROST(OPTH) 2.5 ML BTL OP SCH (21:00)
[2017-08-14] VITALS (53 sets, daily range): BP systolic 105–160; BP diastolic 54–84
--- NOTE | 2017-08-14 00:13 | Consultation ---
DATE OF CONSULTATION: August 13, 2017 REFERRING PHYSICIAN: Dr. Lange REASON FOR CONSULT: Bradycardia. HISTORY OF PRESENT ILLNESS: This is an 82-year-old woman with history of COPD, no cardiac history. However, this time, she presented with progressive COPD exacerbation, underwent mechanical ventilation due to respiratory failure. Patient has had episodes of junctional escape rhythm with severe bradycardia. She is not on any known blocking agents. Currently, she was started on dopamine with slight improvement on her heart rate up to 60s. However, most of the time, she is in the 40s and 50s. Also, she was found to have a low ejection fraction of 20%. However, there is no history of heart failure. REVIEW OF SYSTEMS: Unable to obtain at this time. Patient is intubated. PAST MEDICAL HISTORY: COPD. PHYSICAL EXAM VITALS: Blood pressure 110/60, pulse 55, respiration 22, O2 sat 98%. GENERAL: Sedated, intubated. CARDIOVASCULAR: Regular. RESPIRATORY: Rhonchi bilaterally. ABDOMEN: Soft, nontender. MUSCULOSKELETAL: 2-plus distal pulses. EKG: Junctional rhythm. IMPRESSIONS 1. Bradycardia, highly symptomatic. This has been in the setting of chronic obstructive pulmonary disease exacerbation and respiratory failure. 2. 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 RECOMMENDATIONS: I had a discussion with patient's daughter. At this time, patient is requiring dopamine drip to maintain the heart rate up, so there is indication for pacing, the fact that she has an active infection going on with the COPD exacerbation, we make her a high risk for potential infections on any permanent devices; so, recommend a temporary pacemaker wire placement. This was discussed in detail, benefits and risks of the procedure. Patient's daughter voices understanding and wishes to proceed. Will plan for a temporary pacemaker wire placement, this wire can stay for few weeks until further treatment is established and all acute issues are resolved. Then, we could consider a permanent pacemaker placement. Thank you for letting us participate in Ms. Mueller's healthcare. Job#: [id number] CQ
[2017-08-14] MEDS: IPRATROPIUM BROMIDE 0.02% 2.5 ML NEB NEB SCH ×4 (02:50→18:15)
[2017-08-14] MEDS: ALBUTEROL SULF 0.083% NEB SOLN 3 ML NEB NEB SCH ×6 (02:50→23:30)
[2017-08-14] MEDS: LEVOTHYROXINE SODIUM 50 MCG TAB PO SCH (04:33)
[2017-08-14] MEDS: CEFEPIME HCL 2 GM VIAL IV SCH ×2 (04:33→18:22)
[2017-08-14] MEDS: CLINDAMYCIN PHOS 900MG/ D5W 50 50 ML IV SCH ×3 (05:39→21:56)
[2017-08-14] MEDS: INSULIN REGULAR, HUMAN 100 UNIT/1 ML 3ML VIAL SQ SCH ×4 (05:39→18:00)
[2017-08-14 06:11] LABS: BASOPHILS % 0.1 % (0.0-1.0); HEMATOCRIT 31.3 % (34.2-44.1); HEMOGLOBIN 10.3 g/dL (12.0-16.0); LYMPHOCYTES # (AUTO) 0.8 (1.0-3.2); LYMPHOCYTES % 7.3 % (18.0-39.1); MEAN CORPUSCULAR HEMOGLOBIN 30.5 pg (28-32); MEAN CORPUSCULAR HGB CONC 32.9 g/dL (31-35); MEAN CORPUSCULAR VOLUME 92.6 fL (81-99); MONOCYTES # (AUTO) 0.8 (0.2-0.8); MONOCYTES % 7.2 % (4.4-11.3); NEUTROPHILS # (AUTO) 9.1 (2.1-6.9); NEUTROPHILS % 84.9 % (38.7-80.0); PLATELET COUNT 130 x10e3/uL (140-360); RED BLOOD COUNT 3.38 x10e6/uL (3.6-5.1); RED CELL DISTRIBUTION WIDTH 16.1 % (11.7-14.4)
[2017-08-14 06:30] LABS: ALBUMIN 2.2 g/dL (3.5-5.0); ALBUMIN/GLOBULIN RATIO 0.5 (0.8-2.0); ANION GAP 10.3 mmol/L (8-16); CALCIUM 8.5 mg/dL (8.4-10.2); CREATININE, SERUM 1.69 mg/dL (0.57-1.11); POTASSIUM 4.3 mmol/L (3.5-5.1)
--- NOTE | 2017-08-14 07:12 | Diagnostic Imaging Report ---
EXAMINATION: CHEST SINGLE (PORTABLE) INDICATION: Intubated. COMPARISON: 08/13/2017 FINDINGS: TUBES and LINES: Right IJ central line catheter and nasogastric tube are stable in good position. Endotracheal tube is 0.8 cm above the becca, repositioning is recommended. LUNGS: Lungs are not well inflated. There are bibasilar atelectasis. There is perihilar interstitial opacities, consistent with interstitial edema. PLEURA: No pleural effusion or pneumothorax. HEART AND MEDIASTINUM: Cardiac size is mildly enlarged. There are atherosclerotic calcifications within the aorta. BONES AND SOFT TISSUES: No acute osseous lesion. Soft tissues are unremarkable. UPPER ABDOMEN: No free air under the diaphragm. IMPRESSION: Persistent mild interstitial edema. Repositioning of endotracheal tube is recommended Signed by: Dr. Chapin Dhillon M.D. on 08/14/2017 7:08 AM
[2017-08-14] MEDS: MULTIVITAMINS/MINERALS TAB PO SCH (09:00)
[2017-08-14] MEDS: OYST-CAL-D 500MG TABLET PO SCH ×2 (09:00→16:54)
[2017-08-14] MEDS: CLOPIDOGREL BISULFATE 75 MG TAB PO SCH (09:00)
[2017-08-14] MEDS: MIDAZOLAM HCL 25 MG in SODIUM CHLORIDE 0.9% 50ML 45 ML IV PRN ×3 (09:10→21:00)
[2017-08-14] MEDS: METHYLPREDNISOLONE SOD SUCC 40 MG/ML VIAL IV SCH ×3 (09:35→18:22)
[2017-08-14] MEDS: PANTOPRAZOLE 40 MG 10ML VIAL IV SCH (10:30)
[2017-08-14] MEDS: CITRIC ACID/SODIUM CITRATE 30 ML UDC PO SCH (10:30)
[2017-08-14] MEDS: BRIMONIDINE/TIMOLOL (OPTH SOLN 5 ML DRPETTE OP SCH ×2 (10:30→18:15)
[2017-08-14] MEDS: DOXYCYCLINE HYCLATE TABLET 100 MG TAB PO SCH ×2 (10:31→21:56)
[2017-08-14] MEDS: SODIUM CHLORIDE 0.9% 1000ML 1,000 ML IV SCH ×2 (12:29→16:02)
[2017-08-14] MEDS: MORPHINE SULFATE 2 MG/ML SYR IV PRN ×2 (12:54→18:23)
--- NOTE | 2017-08-14 14:48 | Diagnostic Imaging Report ---
PROCEDURE: CHEST SINGLE (PORTABLE) 1413 hrs. COMPARISON: Chest x-ray 0606 hrs. INDICATIONS: CHECK ET TUBE POSITION FINDINGS: Lines/tubes: Endotracheal tube terminates in the right main bronchus. Enteric tube extends past the diaphragm. Right PICC line remains in the SVC. LUNGS: Rounded airspace has developed in the medial right chest near the hilum. The left lung is clear. PLEURA: No effusions or pneumothorax. HEART \T\ MEDIASTINUM: Stable mild cardiomegaly. BONES \T\ SOFT TISSUES: No acute findings. CONCLUSION: 1. Endotracheal tube terminates in the proximal right bronchus. Recommend retraction by approximately 3-4 cm. 2. New airspace opacity in the right lung suggestive of atelectasis. Dictated by: Irma Garcia M.D. on 08/14/2017 at 14:49 Electronically approved by: Irma Garcia M.D. on 08/14/2017 at 14:49
[2017-08-14] MEDS: MONTELUKAST SODIUM 10 MG TAB PO SCH (17:00)
[2017-08-14] MEDS ORDERED: LIDOCAINE HCL 2% LOCAL 20 ML VIAL ONE (19:21)
[2017-08-14] MEDS ORDERED: SODIUM CHLORIDE 0.9% 500ML 500 ML ONE (19:21)
[2017-08-14] MEDS: LATANOPROST(OPTH) 2.5 ML BTL OP SCH (21:57)
[2017-08-15] VITALS (89 sets, daily range): BP systolic 112–168; BP diastolic 43–84
[2017-08-15] MEDS: MIDAZOLAM HCL 25 MG in SODIUM CHLORIDE 0.9% 50ML 45 ML IV PRN ×6 (01:25→21:21)
[2017-08-15] MEDS: ALBUTEROL SULF 0.083% NEB SOLN 3 ML NEB NEB SCH ×6 (02:50→22:32)
[2017-08-15] MEDS: IPRATROPIUM BROMIDE 0.02% 2.5 ML NEB NEB SCH ×5 (02:50→22:32)
[2017-08-15] MEDS: CEFEPIME HCL 2 GM VIAL IV SCH ×2 (05:37→17:30)
[2017-08-15] MEDS: CLINDAMYCIN PHOS 900MG/ D5W 50 50 ML IV SCH (05:37)
[2017-08-15] MEDS: LEVOTHYROXINE SODIUM 50 MCG TAB PO SCH (05:37)
[2017-08-15] MEDS: INSULIN REGULAR, HUMAN 100 UNIT/1 ML 3ML VIAL SQ SCH ×4 (06:00→17:50)
[2017-08-15 06:08] LABS: HEMATOCRIT 30.6 % (34.2-44.1); HEMOGLOBIN 10.2 g/dL (12.0-16.0); LYMPHOCYTES # (AUTO) 0.6 (1.0-3.2); LYMPHOCYTES % 7.8 % (18.0-39.1); MEAN CORPUSCULAR HEMOGLOBIN 30.7 pg (28-32); MEAN CORPUSCULAR HGB CONC 33.3 g/dL (31-35); MEAN CORPUSCULAR VOLUME 92.2 fL (81-99); MONOCYTES # (AUTO) 0.4 (0.2-0.8); MONOCYTES % 5.4 % (4.4-11.3); NEUTROPHILS # (AUTO) 6.9 (2.1-6.9); NEUTROPHILS % 86.3 % (38.7-80.0); PLATELET COUNT 137 x10e3/uL (140-360); RED BLOOD COUNT 3.32 x10e6/uL (3.6-5.1); RED CELL DISTRIBUTION WIDTH 16.4 % (11.7-14.4)
[2017-08-15 06:29] LABS: INR 1.13; PROTHROMBIN TIME 13.6 seconds (11.9-14.5)
[2017-08-15 06:35] LABS: ANION GAP 9.5 mmol/L (8-16); CALCIUM 7.9 mg/dL (8.4-10.2); MAGNESIUM 2.1 MG/DL (1.3-2.1); POTASSIUM 4.5 mmol/L (3.5-5.1)
[2017-08-15 06:49] LABS: CREATININE, SERUM 1.38 mg/dL (0.57-1.11)
--- NOTE | 2017-08-15 07:07 | Diagnostic Imaging Report ---
EXAMINATION: CHEST SINGLE (PORTABLE) INDICATION: Endotracheal tube repositioning. COMPARISON: 08/14/2017 FINDINGS: TUBES and LINES: Endotracheal tube is now 2.3 cm above the becca in good position. NG tube is stable. Unipolar pacer with distal tip overlying the right ventricle. LUNGS: Lungs are not well inflated. There are bibasilar atelectasis. There is mild prominence of the central pulmonary vasculature, consistent with pulmonary venous congestion. PLEURA: No pleural effusion or pneumothorax. HEART AND MEDIASTINUM: Cardiac size is mildly enlarged. BONES AND SOFT TISSUES: No acute osseous lesion. Soft tissues are unremarkable. UPPER ABDOMEN: No free air under the diaphragm. IMPRESSION: Interval improvement in airspace disease previously noted right upper lobe. Signed by: Dr. Chapin Dhillon M.D. on 08/15/2017 7:04 AM
[2017-08-15] MEDS: METHYLPREDNISOLONE SOD SUCC 40 MG/ML VIAL IV SCH (07:30)
[2017-08-15] MEDS: CLOPIDOGREL BISULFATE 75 MG TAB PO SCH (08:44)
[2017-08-15] MEDS: MULTIVITAMINS/MINERALS TAB PO SCH (08:45)
[2017-08-15] MEDS: DOXYCYCLINE HYCLATE TABLET 100 MG TAB PO SCH ×2 (08:46→20:35)
[2017-08-15] MEDS: OYST-CAL-D 500MG TABLET PO SCH ×2 (08:46→17:45)
[2017-08-15] MEDS: PANTOPRAZOLE 40 MG 10ML VIAL IV SCH (08:59)
[2017-08-15] MEDS: BRIMONIDINE/TIMOLOL (OPTH SOLN 5 ML DRPETTE OP SCH ×2 (09:00→17:00)
[2017-08-15] MEDS ORDERED: MIDAZOLAM HCL 2 MG/2 ML VIAL ONE (10:49)
[2017-08-15] MEDS ORDERED: LIDOCAINE HCL 2% LOCAL 20 ML VIAL ONE (10:50)
[2017-08-15] MEDS ORDERED: HEPARIN SOD/SOD CHLORIDE 2,000 ML ONE (10:50)
[2017-08-15] MEDS ORDERED: FENTANYL CITRATE/PF 100MCG/2 ML INJ ONE (10:50)
[2017-08-15] MEDS ORDERED: IOPAMIDOL 300MG/ML 100 ML INFUS..BTL IV ONE (10:53)
[2017-08-15] MEDS ORDERED: HYDRALAZINE HCL 20 MG/ML VIAL ONE (11:37)
--- NOTE | 2017-08-15 13:55 | Operative Report ---
DATE OF PROCEDURE: August 15, 2017 INDICATIONS: Patient came to this institution with respiratory failure on ventilator, left ventricular ejection fraction of 20%. Junctional escape rhythm status post temporary wire 2 days ago. Patient still in critical condition, elevated troponin. TECHNICAL DETAILS: After the usual sterile preparation and draping procedure, patient is already on Versed drip. The right common femoral artery accessed in the usual fashion, 4-Kosovan sheath established in place. A Jorgito left 4 and 3DRC catheters were engaged to the coronaries. Pigtail for hemodynamic measurement and left ventriculogram. At the end of the procedure a VASCADE 5-Kosovan device was deployed using 5-Kosovan sheath. There were no complications and no blood loss. RESULTS A: Coronary angiogram. 1. On left main, 30% to 40% distal left main disease. 2. LAD several plaques at 30% to 40%. 3. Circumflex coronary artery few plaques and dominant circumflex. 4. Right coronary artery codominant 30% lesion. B: Hemodynamics: Aorta pressure 178/88, LV pressure 178/32. Left ventriculogram in the right anterior oblique view showed akinetic anterior apical and part of the inferoapical segments with ejection fraction of 35%. IMPRESSION 1. Codominant circulation. 2. Mild coronary artery disease. 3. 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 COMPLICATIONS: None. BLOOD LOSS: None. Job#: [id number] MING
[2017-08-15] MEDS: SODIUM CHLORIDE 0.9% 1000ML 1,000 ML IV SCH (16:10)
[2017-08-15] MEDS: MONTELUKAST SODIUM 10 MG TAB PO SCH (17:45)
[2017-08-15] MEDS ORDERED: ACETAMINOPHEN 1000 MG/100 ML IV PRN (20:30)
[2017-08-15] MEDS: LATANOPROST(OPTH) 2.5 ML BTL OP SCH (20:35)
[2017-08-16] VITALS (84 sets, daily range): BP systolic 115–197; BP diastolic 52–127
[2017-08-16] MEDS: ALBUTEROL SULF 0.083% NEB SOLN 3 ML NEB NEB SCH ×6 (02:48→22:42)
[2017-08-16] MEDS: SODIUM CHLORIDE 0.9% 1000ML 1,000 ML IV SCH ×2 (05:42→11:50)
[2017-08-16] MEDS: CEFEPIME HCL 2 GM VIAL IV SCH ×2 (05:42→17:30)
[2017-08-16] MEDS: LEVOTHYROXINE SODIUM 50 MCG TAB PO SCH (05:42)
[2017-08-16] MEDS: MIDAZOLAM HCL 25 MG in SODIUM CHLORIDE 0.9% 50ML 45 ML IV PRN ×3 (05:50→22:05)
[2017-08-16] MEDS: INSULIN REGULAR, HUMAN 100 UNIT/1 ML 3ML VIAL SQ SCH ×4 (06:00→18:00)
[2017-08-16 06:09] LABS: BASOPHILS % 0.2 % (0.0-1.0); EOSINOPHILS # (AUTO) 0.2 (0.0-0.4); EOSINOPHILS % 2.7 % (0.0-6.0); HEMATOCRIT 31.8 % (34.2-44.1); HEMOGLOBIN 10.6 g/dL (12.0-16.0); LYMPHOCYTES # (AUTO) 0.9 (1.0-3.2); MEAN CORPUSCULAR HEMOGLOBIN 30.9 pg (28-32); MEAN CORPUSCULAR HGB CONC 33.3 g/dL (31-35); MEAN CORPUSCULAR VOLUME 92.7 fL (81-99); MONOCYTES # (AUTO) 0.7 (0.2-0.8); MONOCYTES % 8.4 % (4.4-11.3); NEUTROPHILS # (AUTO) 6.5 (2.1-6.9); NEUTROPHILS % 77.3 % (38.7-80.0); PLATELET COUNT 151 x10e3/uL (140-360); RED BLOOD COUNT 3.43 x10e6/uL (3.6-5.1); RED CELL DISTRIBUTION WIDTH 16.7 % (11.7-14.4)
[2017-08-16 06:29] LABS: ALBUMIN/GLOBULIN RATIO 0.5 (0.8-2.0); CALCIUM 7.7 mg/dL (8.4-10.2); CREATININE, SERUM 1.07 mg/dL (0.57-1.11)
[2017-08-16 06:55] LABS: ANION GAP 8.3 mmol/L (8-16); POTASSIUM 3.3 mmol/L (3.5-5.1)
[2017-08-16] MEDS ORDERED: ALTEPLASE RECOMBINANT 2 MG/2 ML VIAL IV PRN (07:15)
[2017-08-16] MEDS: IPRATROPIUM BROMIDE 0.02% 2.5 ML NEB NEB SCH ×4 (07:34→22:42)
--- NOTE | 2017-08-16 07:37 | Diagnostic Imaging Report ---
EXAMINATION: Chest, CHEST SINGLE (PORTABLE) INDICATION: Chest pain COMPARISON: Portable chest 08/15/2017 FINDINGS: LINES: No change in proper position of the lines and support catheters. Heart: Normal cardiac silhouette. Vascular: The pulmonary vasculature is within normal limits. Atherosclerotic calcifications of the aortic arch. Mediastinum: No mediastinal, hilar, or axillary mass or lymphadenopathy. Lungs: No parenchymal mass. No focal consolidation. Bibasilar atelectasis. Pleura: Small left pleural effusion. No pneumothorax. Bones: No acute osseous abnormality. Degenerative changes of the thoracic spine. Soft tissues: Normal. Impression: Small left pleural effusion. Signed by: Dr. Jurgen Krueger M.D. on 08/16/2017 7:34 AM
[2017-08-16] MEDS: BRIMONIDINE/TIMOLOL (OPTH SOLN 5 ML DRPETTE OP SCH ×2 (09:00→17:00)
[2017-08-16] MEDS: DOXYCYCLINE HYCLATE TABLET 100 MG TAB PO SCH ×2 (09:00→21:28)
[2017-08-16] MEDS: OYST-CAL-D 500MG TABLET PO SCH ×2 (09:25→17:00)
[2017-08-16] MEDS: MULTIVITAMINS/MINERALS TAB PO SCH (09:25)
[2017-08-16] MEDS: PANTOPRAZOLE 40 MG 10ML VIAL IV SCH (09:25)
[2017-08-16] MEDS ORDERED: POTASSIUM CHLORIDE 20MEQ/100ML 100 ML IV ONE (10:30)
[2017-08-16] MEDS ORDERED: ENOXAPARIN 30 MG/0.3 ML SYR SC ONE ×2 (12:24→13:00)
--- NOTE | 2017-08-16 14:56 | Diagnostic Imaging Report ---
EXAMINATION: Chest, CHEST XRAY LINE PLACEMENT INDICATION: Chest pain COMPARISON: Portable chest 08/16/2017 FINDINGS: LINES: Right chest cardiac device with lead projecting over the expected region of the right ventricle. Right peripherally inserted central venous catheter with tip projecting over the expected region of the right subclavian vein. Endotracheal catheter is present with the tip projecting over the expected region of the trachea, position 2 cm from the becca. Enteric feeding catheter with tip extending below the inferior margin of the examination, likely within the gastric body. Heart: Normal cardiac silhouette. Vascular: The pulmonary vasculature is within normal limits. Atherosclerotic calcifications of the aortic arch. Mediastinum: No mediastinal, hilar, or axillary mass or lymphadenopathy. Lungs: No parenchymal mass. No focal consolidation. Bibasilar atelectasis. Pleura: No pleural effusion. No pneumothorax. Bones: No acute osseous abnormality. Degenerative changes of the thoracic spine. Soft tissues: Normal. Impression: No acute radiographic abnormality. Signed by: Dr. Jurgen Krueger M.D. on 08/16/2017 2:53 PM
[2017-08-16] MEDS: MONTELUKAST SODIUM 10 MG TAB PO SCH (17:30)
[2017-08-16] MEDS: LATANOPROST(OPTH) 2.5 ML BTL OP SCH (21:28)
--- NOTE | 2017-08-16 21:46 | Operative Report ---
DATE OF PROCEDURE: August 14, 2017 PREPROCEDURE DIAGNOSES: 1. Intermittent complete heart block. 2. Symptomatic bradycardia. 3. Respiratory failure. POSTPROCEDURE DIAGNOSES: 1. Intermittent complete heart block. 2. Symptomatic bradycardia. 3. Respiratory failure. 4. Chronic obstructive pulmonary disease exacerbation, receiving intravenous antibiotics with new diagnosis of congestive heart failure. ESTIMATED BLOOD LOSS: 5 mL. COMPLICATIONS: None. PROCEDURE PERFORMED: Temporary pacemaker placement. DESCRIPTION OF PROCEDURE: After informed consent was obtained, patient was brought to the electrophysiology laboratory in a fasting state. Patient was intubated from ICU. Area over her right side of chest was prepped and draped in usual sterile fashion. Vascular access was obtained x1 in the right axillary vein using modified Seldinger technique under fluoroscopic guidance. The lead was advanced to the RV apex, R-wave 7, pacing 0.6 at 0.5, impedance 680. Sheath was removed from the body. The lead was secured to skin using silk and connected to an external pacemaker device. Patient tolerated the procedure well. Procedure was deemed complete. SUMMARY OF HARDWARE IMPLANTED: The new temporary pacemaker lead is Lola Pirindola [id number], [id number]. IMPRESSION: Successful placement of temporary pacemaker wire via right axillary vein. PLAN: 1. Routine postop monitoring in ICU. 2. Will follow up after acute issues are resolved to consider possible permanent pacemaker placement. Job#: [id number]
--- NOTE | 2017-08-16 22:44 | Consultation ---
DATE OF CONSULTATION: NO DICTATION (00:03) Job#: [id number] CQ
[2017-08-17] VITALS (90 sets, daily range): BP systolic 119–198; BP diastolic 69–135
[2017-08-17] MEDS: ALBUTEROL SULF 0.083% NEB SOLN 3 ML NEB NEB SCH ×5 (02:30→19:12)
[2017-08-17] MEDS: MIDAZOLAM HCL 25 MG in SODIUM CHLORIDE 0.9% 50ML 45 ML IV PRN ×2 (03:12→06:40)
[2017-08-17] MEDS: SODIUM CHLORIDE 0.9% 1000ML 1,000 ML IV SCH ×2 (04:32→17:39)
[2017-08-17] MEDS: LEVOTHYROXINE SODIUM 50 MCG TAB PO SCH (05:37)
[2017-08-17] MEDS: CEFEPIME HCL 2 GM VIAL IV SCH ×2 (05:37→19:51)
[2017-08-17] MEDS: INSULIN REGULAR, HUMAN 100 UNIT/1 ML 3ML VIAL SQ SCH ×4 (05:40→18:00)
[2017-08-17 06:35] LABS: BASOPHILS % 0.4 % (0.0-1.0); EOSINOPHILS # (AUTO) 0.6 (0.0-0.4); EOSINOPHILS % 7.7 % (0.0-6.0); HEMATOCRIT 34.9 % (34.2-44.1); HEMOGLOBIN 11.4 g/dL (12.0-16.0); LYMPHOCYTES # (AUTO) 0.9 (1.0-3.2); LYMPHOCYTES % 12.3 % (18.0-39.1); MEAN CORPUSCULAR HEMOGLOBIN 30.8 pg (28-32); MEAN CORPUSCULAR HGB CONC 32.7 g/dL (31-35); MEAN CORPUSCULAR VOLUME 94.3 fL (81-99); MONOCYTES # (AUTO) 0.8 (0.2-0.8); MONOCYTES % 9.9 % (4.4-11.3); NEUTROPHILS # (AUTO) 5.3 (2.1-6.9); NEUTROPHILS % 69.4 % (38.7-80.0); PLATELET COUNT 152 x10e3/uL (140-360); RED CELL DISTRIBUTION WIDTH 16.3 % (11.7-14.4)
[2017-08-17 06:57] LABS: ANION GAP 9.6 mmol/L (8-16); CALCIUM 8.4 mg/dL (8.4-10.2); CREATININE, SERUM 0.99 mg/dL (0.57-1.11); POTASSIUM 3.6 mmol/L (3.5-5.1)
[2017-08-17] MEDS: IPRATROPIUM BROMIDE 0.02% 2.5 ML NEB NEB SCH ×3 (07:16→19:12)
[2017-08-17 08:46] LABS: ABG HCO3 21 mmol/L (23-28); ABG PCO2 37 mmHg (41-51); ABG PH 7.37 (7.31-7.41); ABG PO2 116 mmHg (80-105)
[2017-08-17] MEDS: MULTIVITAMINS/MINERALS TAB PO SCH (09:00)
[2017-08-17] MEDS: PANTOPRAZOLE 40 MG 10ML VIAL IV SCH (09:00)
[2017-08-17] MEDS: DOXYCYCLINE HYCLATE TABLET 100 MG TAB PO SCH ×2 (09:00→21:26)
[2017-08-17] MEDS: OYST-CAL-D 500MG TABLET PO SCH ×2 (09:00→16:36)
[2017-08-17] MEDS: BRIMONIDINE/TIMOLOL (OPTH SOLN 5 ML DRPETTE OP SCH ×2 (09:00→17:00)
[2017-08-17] MEDS ORDERED: FUROSEMIDE INJ 10 MG/ML 2 ML VIAL ONE (09:04)
[2017-08-17] MEDS ORDERED: FUROSEMIDE INJ 10 MG/ML 2 ML VIAL IV ONE (09:30)
[2017-08-17] MEDS ORDERED: ACETAMINOPHEN 1000 MG/100 ML 100 ML IV ONE (12:46)
[2017-08-17] MEDS ORDERED: ACETAMINOPHEN 1000 MG/100 ML IV PRN (13:00)
[2017-08-17] MEDS: MONTELUKAST SODIUM 10 MG TAB PO SCH (16:36)
[2017-08-17] MEDS: ENOXAPARIN 30 MG/0.3 ML SYR SC SCH (16:37)
[2017-08-17] MEDS: LATANOPROST(OPTH) 2.5 ML BTL OP SCH (21:26)
[2017-08-18] VITALS (46 sets, daily range): BP systolic 104–194; BP diastolic 61–115
[2017-08-18] MEDS: SODIUM CHLORIDE 0.9% 1000ML 1,000 ML IV SCH
[2017-08-18] MEDS: IPRATROPIUM BROMIDE 0.02% 2.5 ML NEB NEB SCH ×5 (00:01→23:10)
[2017-08-18] MEDS: ALBUTEROL SULF 0.083% NEB SOLN 3 ML NEB NEB SCH ×8 (00:01→23:10)
[2017-08-18] MEDS: LEVOTHYROXINE SODIUM 50 MCG TAB PO SCH ×2 (05:23→09:03)
[2017-08-18] MEDS: CEFEPIME HCL 2 GM VIAL IV SCH ×2 (05:23→17:18)
[2017-08-18] MEDS: INSULIN REGULAR, HUMAN 100 UNIT/1 ML 3ML VIAL SQ SCH ×4 (05:36→18:00)
[2017-08-18 06:08] LABS: BASOPHILS # (AUTO) 0.1 (0.0-0.1); BASOPHILS % 0.6 % (0.0-1.0); EOSINOPHILS # (AUTO) 0.7 (0.0-0.4); EOSINOPHILS % 7.4 % (0.0-6.0); HEMATOCRIT 37.5 % (34.2-44.1); HEMOGLOBIN 12.4 g/dL (12.0-16.0); LYMPHOCYTES # (AUTO) 1.1 (1.0-3.2); LYMPHOCYTES % 11.8 % (18.0-39.1); MEAN CORPUSCULAR HEMOGLOBIN 30.5 pg (28-32); MEAN CORPUSCULAR HGB CONC 33.1 g/dL (31-35); MEAN CORPUSCULAR VOLUME 92.4 fL (81-99); MONOCYTES # (AUTO) 0.9 (0.2-0.8); MONOCYTES % 9.7 % (4.4-11.3); NEUTROPHILS # (AUTO) 6.3 (2.1-6.9); NEUTROPHILS % 70.2 % (38.7-80.0); PLATELET COUNT 149 x10e3/uL (140-360); RED BLOOD COUNT 4.06 x10e6/uL (3.6-5.1); RED CELL DISTRIBUTION WIDTH 15.9 % (11.7-14.4)
[2017-08-18 06:25] LABS: ANION GAP 10.5 mmol/L (8-16); CREATININE, SERUM 0.95 mg/dL (0.57-1.11); MAGNESIUM 2.1 MG/DL (1.3-2.1); POTASSIUM 3.5 mmol/L (3.5-5.1)
[2017-08-18] MEDS ORDERED: LORAZEPAM INJ 2 MG/ML VIAL IV PRN (07:00)
[2017-08-18] MEDS ORDERED: METOCLOPRAMIDE HCL 10 MG/2ML VIAL IV PRN (07:00)
--- NOTE | 2017-08-18 07:15 | Diagnostic Imaging Report ---
PROCEDURE: A single AP view of the chest. COMPARISON: 08/16/2017. INDICATIONS: ASPIRATION, COPD FINDINGS: Right upper extremity PICC is noted. The tip projects over the low superior vena cava. Unchanged position of right subclavian approach implantable cardiac device body and lead. Interval extubation and removal of enteric tube. The lungs remain well-inflated and without focal consolidation, large effusion, or pneumothorax. Scattered prominent interstitial markings likely reflect age-related fibrotic changes. Right upper lobe volume loss with ipsilateral tracheal deviation is again noted, and is unchanged relative to 03/29/2017 when accounting for differences in technique. Tortuosity and atherosclerotic calcification of the thoracic aorta. IMPRESSION: Interval extubation and removal of enteric tube. Tip of right upper extremity PICC projects over the low superior vena cava. Stable chronic appearing changes of the lungs without new consolidation or pleural effusion. Dictated by: Jese Bonner M.D. on 08/18/2017 at 7:16 Electronically approved by: Jese Bonner M.D. on 08/18/2017 at 7:16
[2017-08-18] MEDS: PANTOPRAZOLE 40 MG 10ML VIAL IV SCH (08:00)
[2017-08-18] MEDS: BRIMONIDINE/TIMOLOL (OPTH SOLN 5 ML DRPETTE OP SCH ×2 (08:52→17:18)
[2017-08-18] MEDS: MULTIVITAMINS/MINERALS TAB PO SCH (09:04)
[2017-08-18] MEDS: DOXYCYCLINE HYCLATE TABLET 100 MG TAB PO SCH ×2 (09:04→21:30)
[2017-08-18] MEDS: OYST-CAL-D 500MG TABLET PO SCH ×2 (09:04→17:18)
[2017-08-18] MEDS: METHYLPREDNISOLONE SOD SUCC 40 MG/ML VIAL IV SCH ×2 (10:00→21:30)
[2017-08-18] MEDS ORDERED: FUROSEMIDE INJ 10 MG/ML 2 ML VIAL IV ONE (10:00)
[2017-08-18] MEDS ORDERED: HYDRALAZINE HCL 20 MG/ML VIAL IV PRN (10:30)
[2017-08-18] MEDS: HYDRALAZINE HCL 25 MG TAB PO SCH ×2 (10:52→22:00)
[2017-08-18] MEDS ORDERED: HYDRALAZINE HCL 20 MG/ML VIAL IV ONE (11:30)
[2017-08-18] MEDS ORDERED: FUROSEMIDE INJ 10 MG/ML 4 ML VIAL IV ONE (14:00)
[2017-08-18] MEDS: ENOXAPARIN 30 MG/0.3 ML SYR SC SCH (17:18)
[2017-08-18] MEDS: MONTELUKAST SODIUM 10 MG TAB PO SCH (17:18)
[2017-08-18] MEDS: LATANOPROST(OPTH) 2.5 ML BTL OP SCH (21:30)
[2017-08-19] VITALS (44 sets, daily range): BP systolic 100–170; BP diastolic 53–95
[2017-08-19] MEDS: ALBUTEROL SULF 0.083% NEB SOLN 3 ML NEB NEB SCH ×6 (03:08→23:50)
[2017-08-19] MEDS: METHYLPREDNISOLONE SOD SUCC 40 MG/ML VIAL IV SCH ×3 (05:45→21:57)
[2017-08-19] MEDS: HYDRALAZINE HCL 25 MG TAB PO SCH ×3 (05:45→21:55)
[2017-08-19] MEDS: LEVOTHYROXINE SODIUM 50 MCG TAB PO SCH (05:45)
[2017-08-19] MEDS: INSULIN REGULAR, HUMAN 100 UNIT/1 ML 3ML VIAL SQ SCH ×4 (06:00→18:00)
[2017-08-19 06:14] LABS: BASOPHILS % 0.1 % (0.0-1.0); EOSINOPHILS % 0.1 % (0.0-6.0); HEMATOCRIT 37.5 % (34.2-44.1); HEMOGLOBIN 12.5 g/dL (12.0-16.0); LYMPHOCYTES # (AUTO) 0.9 (1.0-3.2); LYMPHOCYTES % 8.4 % (18.0-39.1); MEAN CORPUSCULAR HEMOGLOBIN 30.8 pg (28-32); MEAN CORPUSCULAR HGB CONC 33.3 g/dL (31-35); MEAN CORPUSCULAR VOLUME 92.4 fL (81-99); MONOCYTES # (AUTO) 0.4 (0.2-0.8); MONOCYTES % 4.2 % (4.4-11.3); NEUTROPHILS % 86.6 % (38.7-80.0); PLATELET COUNT 160 x10e3/uL (140-360); RED BLOOD COUNT 4.06 x10e6/uL (3.6-5.1); RED CELL DISTRIBUTION WIDTH 15.8 % (11.7-14.4)
[2017-08-19 06:37] LABS: ANION GAP 13.8 mmol/L (8-16); CALCIUM 10.1 mg/dL (8.4-10.2); CREATININE, SERUM 1.26 mg/dL (0.57-1.11); POTASSIUM 3.8 mmol/L (3.5-5.1)
[2017-08-19] MEDS: IPRATROPIUM BROMIDE 0.02% 2.5 ML NEB NEB SCH ×4 (07:00→23:50)
[2017-08-19] MEDS: PANTOPRAZOLE 40 MG 10ML VIAL IV SCH (09:37)
[2017-08-19] MEDS: BRIMONIDINE/TIMOLOL (OPTH SOLN 5 ML DRPETTE OP SCH ×2 (09:37→18:34)
[2017-08-19] MEDS: DOXYCYCLINE HYCLATE TABLET 100 MG TAB PO SCH (09:37)
[2017-08-19] MEDS: MULTIVITAMINS/MINERALS TAB PO SCH (09:37)
[2017-08-19] MEDS: OYST-CAL-D 500MG TABLET PO SCH ×2 (09:37→18:34)
[2017-08-19] MEDS ORDERED: FUROSEMIDE INJ 10 MG/ML 2 ML VIAL IV NR (10:30)
[2017-08-19] MEDS: MONTELUKAST SODIUM 10 MG TAB PO SCH (18:34)
[2017-08-19] MEDS: ENOXAPARIN 30 MG/0.3 ML SYR SC SCH (18:35)
[2017-08-19] MEDS: LATANOPROST(OPTH) 2.5 ML BTL OP SCH (21:15)
[2017-08-20] VITALS (24 sets, daily range): BP systolic 95–156; BP diastolic 54–84
[2017-08-20] MEDS: ALBUTEROL SULF 0.083% NEB SOLN 3 ML NEB NEB SCH ×6 (03:10→23:55)
[2017-08-20] MEDS: METHYLPREDNISOLONE SOD SUCC 40 MG/ML VIAL IV SCH ×3 (05:35→22:00)
[2017-08-20] MEDS: LEVOTHYROXINE SODIUM 50 MCG TAB PO SCH (05:35)
[2017-08-20] MEDS: HYDRALAZINE HCL 25 MG TAB PO SCH ×3 (06:00→22:00)
[2017-08-20] MEDS ORDERED: METOCLOPRAMIDE HCL 10 MG TAB PO PRN (06:30)
[2017-08-20 06:42] LABS: BASOPHILS % 0.1 % (0.0-1.0); HEMATOCRIT 36.1 % (34.2-44.1); HEMOGLOBIN 12.2 g/dL (12.0-16.0); LYMPHOCYTES # (AUTO) 1.1 (1.0-3.2); LYMPHOCYTES % 10.2 % (18.0-39.1); MEAN CORPUSCULAR HEMOGLOBIN 30.9 pg (28-32); MEAN CORPUSCULAR HGB CONC 33.8 g/dL (31-35); MEAN CORPUSCULAR VOLUME 91.4 fL (81-99); MONOCYTES # (AUTO) 0.6 (0.2-0.8); MONOCYTES % 5.3 % (4.4-11.3); NEUTROPHILS # (AUTO) 8.9 (2.1-6.9); NEUTROPHILS % 83.7 % (38.7-80.0); PLATELET COUNT 180 x10e3/uL (140-360); RED BLOOD COUNT 3.95 x10e6/uL (3.6-5.1); RED CELL DISTRIBUTION WIDTH 15.5 % (11.7-14.4)
[2017-08-20] MEDS: IPRATROPIUM BROMIDE 0.02% 2.5 ML NEB NEB SCH ×3 (07:00→19:05)
[2017-08-20 07:04] LABS: ANION GAP 12.8 mmol/L (8-16); CALCIUM 9.9 mg/dL (8.4-10.2); CREATININE, SERUM 1.58 mg/dL (0.57-1.11); POTASSIUM 3.8 mmol/L (3.5-5.1)
[2017-08-20] MEDS: INSULIN REGULAR, HUMAN 100 UNIT/1 ML 3ML VIAL SQ SCH ×5 (07:30→21:00)
[2017-08-20] MEDS: PANTOPRAZOLE 40 MG 10ML VIAL IV SCH (09:00)
[2017-08-20] MEDS: MULTIVITAMINS/MINERALS TAB PO SCH (09:00)
[2017-08-20] MEDS: BRIMONIDINE/TIMOLOL (OPTH SOLN 5 ML DRPETTE OP SCH ×2 (09:00→17:20)
[2017-08-20] MEDS ORDERED: PANTOPRAZOLE SOD 40 MG TABEC ONE (09:09)
[2017-08-20] MEDS: OYST-CAL-D 500MG TABLET PO SCH ×2 (09:15→17:20)
[2017-08-20] MEDS: MONTELUKAST SODIUM 10 MG TAB PO SCH (17:20)
[2017-08-20] MEDS: ENOXAPARIN 30 MG/0.3 ML SYR SC SCH (17:20)
[2017-08-20] MEDS: LATANOPROST(OPTH) 2.5 ML BTL OP SCH (22:01)
[2017-08-21] VITALS (7 sets, daily range): BP systolic 107–136; BP diastolic 53–72
[2017-08-21] MEDS: IPRATROPIUM BROMIDE 0.02% 2.5 ML NEB NEB SCH ×4 (02:22→18:55)
[2017-08-21] MEDS: ALBUTEROL SULF 0.083% NEB SOLN 3 ML NEB NEB SCH ×6 (02:22→23:00)
[2017-08-21 06:20] LABS: BASOPHILS % 0.1 % (0.0-1.0); HEMOGLOBIN 12.1 g/dL (12.0-16.0); LYMPHOCYTES % 11.5 % (18.0-39.1); MEAN CORPUSCULAR HEMOGLOBIN 31.5 pg (28-32); MEAN CORPUSCULAR HGB CONC 34.6 g/dL (31-35); MEAN CORPUSCULAR VOLUME 91.1 fL (81-99); MONOCYTES # (AUTO) 0.8 (0.2-0.8); MONOCYTES % 8.3 % (4.4-11.3); NEUTROPHILS # (AUTO) 7.2 (2.1-6.9); NEUTROPHILS % 79.7 % (38.7-80.0); PLATELET COUNT 174 x10e3/uL (140-360); RED BLOOD COUNT 3.84 x10e6/uL (3.6-5.1); RED CELL DISTRIBUTION WIDTH 15.2 % (11.7-14.4)
[2017-08-21] MEDS: LEVOTHYROXINE SODIUM 50 MCG TAB PO SCH (06:22)
[2017-08-21] MEDS: METHYLPREDNISOLONE SOD SUCC 40 MG/ML VIAL IV SCH ×2 (06:22→21:44)
[2017-08-21] MEDS: HYDRALAZINE HCL 25 MG TAB PO SCH ×3 (06:33→21:44)
[2017-08-21 06:49] LABS: ALBUMIN 2.8 g/dL (3.5-5.0); ALBUMIN/GLOBULIN RATIO 0.6 (0.8-2.0); ANION GAP 11.8 mmol/L (8-16); CALCIUM 9.6 mg/dL (8.4-10.2); CREATININE, SERUM 1.54 mg/dL (0.57-1.11); POTASSIUM 3.8 mmol/L (3.5-5.1)
[2017-08-21 07:13] LABS: THYROID STIMULATING HORMONE 1.825 uIU/mL (0.350-4.940)
[2017-08-21] MEDS: INSULIN REGULAR, HUMAN 100 UNIT/1 ML 3ML VIAL SQ SCH ×4 (07:30→21:00)
[2017-08-21] MEDS ORDERED: SODIUM CHLORIDE 0.9% 1000ML 1,000 ML IV ONE (08:30)
[2017-08-21] MEDS: MULTIVITAMINS/MINERALS TAB PO SCH (08:49)
[2017-08-21] MEDS: OYST-CAL-D 500MG TABLET PO SCH ×2 (08:49→16:30)
[2017-08-21] MEDS: BRIMONIDINE/TIMOLOL (OPTH SOLN 5 ML DRPETTE OP SCH ×2 (08:49→16:30)
[2017-08-21] MEDS: PANTOPRAZOLE SOD 40 MG TABEC PO SCH (08:49)
[2017-08-21] MEDS: ENOXAPARIN 30 MG/0.3 ML SYR SC SCH (16:30)
[2017-08-21] MEDS: MONTELUKAST SODIUM 10 MG TAB PO SCH (16:30)
[2017-08-21] MEDS: LATANOPROST(OPTH) 2.5 ML BTL OP SCH (21:44)
[2017-08-22] VITALS (8 sets, daily range): BP systolic 99–153; BP diastolic 55–73
[2017-08-22] MEDS: IPRATROPIUM BROMIDE 0.02% 2.5 ML NEB NEB SCH ×5 (03:00→23:30)
[2017-08-22] MEDS: ALBUTEROL SULF 0.083% NEB SOLN 3 ML NEB NEB SCH ×6 (03:00→23:30)
[2017-08-22] MEDS: LEVOTHYROXINE SODIUM 50 MCG TAB PO SCH (06:01)
[2017-08-22] MEDS: HYDRALAZINE HCL 25 MG TAB PO SCH ×3 (06:01→21:47)
[2017-08-22 06:23] LABS: ALBUMIN 2.6 g/dL (3.5-5.0); ALBUMIN/GLOBULIN RATIO 0.6 (0.8-2.0); ANION GAP 9.8 mmol/L (8-16); CREATININE, SERUM 1.43 mg/dL (0.57-1.11); POTASSIUM 3.8 mmol/L (3.5-5.1)
[2017-08-22] MEDS: INSULIN REGULAR, HUMAN 100 UNIT/1 ML 3ML VIAL SQ SCH ×4 (07:30→21:00)
[2017-08-22] MEDS: OYST-CAL-D 500MG TABLET PO SCH ×2 (08:58→17:37)
[2017-08-22] MEDS: METHYLPREDNISOLONE SOD SUCC 40 MG/ML VIAL IV SCH (08:58)
[2017-08-22] MEDS: PANTOPRAZOLE SOD 40 MG TABEC PO SCH (08:58)
[2017-08-22] MEDS: MULTIVITAMINS/MINERALS TAB PO SCH (08:58)
[2017-08-22] MEDS: BRIMONIDINE/TIMOLOL (OPTH SOLN 5 ML DRPETTE OP SCH ×2 (09:03→17:37)
[2017-08-22] MEDS ORDERED: LIDOCAINE HCL 2% LOCAL 20 ML VIAL ONE (14:16)
[2017-08-22] MEDS: ENOXAPARIN 30 MG/0.3 ML SYR SC SCH (17:37)
[2017-08-22] MEDS: MONTELUKAST SODIUM 10 MG TAB PO SCH (17:37)
[2017-08-22] MEDS: LATANOPROST(OPTH) 2.5 ML BTL OP SCH (21:46)
[2017-08-23 00:34] VITALS: BP 125/59
[2017-08-23] MEDS: ALBUTEROL SULF 0.083% NEB SOLN 3 ML NEB NEB SCH ×3 (03:00→11:20)
[2017-08-23 04:00] VITALS: BP 152/71
[2017-08-23] MEDS: HYDRALAZINE HCL 25 MG TAB PO SCH (05:24)
[2017-08-23] MEDS: LEVOTHYROXINE SODIUM 50 MCG TAB PO SCH (05:25)
[2017-08-23 07:25] VITALS: BP 137/65
[2017-08-23] MEDS: INSULIN REGULAR, HUMAN 100 UNIT/1 ML 3ML VIAL SQ SCH (07:30)
[2017-08-23 08:21] VITALS: BP 137/65
[2017-08-23] MEDS: IPRATROPIUM BROMIDE 0.02% 2.5 ML NEB NEB SCH ×2 (08:25→11:20)
[2017-08-23] MEDS: MULTIVITAMINS/MINERALS TAB PO SCH (08:49)
[2017-08-23] MEDS: OYST-CAL-D 500MG TABLET PO SCH (08:49)
[2017-08-23] MEDS: BRIMONIDINE/TIMOLOL (OPTH SOLN 5 ML DRPETTE OP SCH (08:49)
[2017-08-23] MEDS: PANTOPRAZOLE SOD 40 MG TABEC PO SCH (08:49)
[2017-08-23] MEDS ORDERED: PREDNISONE 20 MG TAB PO SCH (09:00)
[2017-08-23 12:21] VITALS: BP 146/65
== END 2017-08-23 12:32 | DRG 207 ==
LOC: ER 04:52 → ERHOLD 07:55 → ICU 16:02 → MED/SURG 08-20 09:41
PROVIDERS: ADMIT Family Medicine; ATTEND Family Medicine
PROC: 0BH17EZ Insertion of Endotracheal Airway into Trachea, Via Natural or Artificial Opening (ICD-10-PCS; principal; 2017-08-12)
PROC: 5A1955Z Respiratory Ventilation, Greater than 96 Consecutive Hours (ICD-10-PCS; 2017-08-12)
PROC: 3E033XZ Introduction of Vasopressor into Peripheral Vein, Percutaneous Approach (ICD-10-PCS; 2017-08-12)
PROC: 02HV33Z Insertion of Infusion Device into Superior Vena Cava, Percutaneous Approach (ICD-10-PCS; 2017-08-13)
PROC: 5A1223Z Performance of Cardiac Pacing, Continuous (ICD-10-PCS; 2017-08-14)
PROC: 4A023N7 Measurement of Cardiac Sampling and Pressure, Left Heart, Percutaneous Approach (ICD-10-PCS; 2017-08-15)
PROC: B2111ZZ Fluoroscopy of Multiple Coronary Arteries using Low Osmolar Contrast (ICD-10-PCS; 2017-08-15)
PROC: B2151ZZ Fluoroscopy of Left Heart using Low Osmolar Contrast (ICD-10-PCS; 2017-08-15)
PROC: 02HV33Z Insertion of Infusion Device into Superior Vena Cava, Percutaneous Approach (ICD-10-PCS; 2017-08-16)
DX: J96.02 Acute respiratory failure with hypercapnia (principal); J69.0 Pneumonitis due to inhalation of food and vomit; N17.0 Acute kidney failure with tubular necrosis; J44.0 Chronic obstructive pulmonary disease with (acute) lower respiratory infection; J96.01 Acute respiratory failure with hypoxia; I50.23 Acute on chronic systolic (congestive) heart failure; I44.2 Atrioventricular block, complete; I95.89 Other hypotension; I27.81 Cor pulmonale (chronic); J44.1 Chronic obstructive pulmonary disease with (acute) exacerbation; I13.0 Hypertensive heart and chronic kidney disease with heart failure and stage 1 through stage 4 chronic kidney disease, or unspecified chronic kidney disease; I51.81 Takotsubo syndrome; I49.5 Sick sinus syndrome; Z78.1 Physical restraint status; N18.9 Chronic kidney disease, unspecified; Z87.891 Personal history of nicotine dependence; H40.9 Unspecified glaucoma; I25.10 Atherosclerotic heart disease of native coronary artery without angina pectoris; K21.9 Gastro-esophageal reflux disease without esophagitis; E03.9 Hypothyroidism, unspecified; Z57.31 Occupational exposure to environmental tobacco smoke; Z85.3 Personal history of malignant neoplasm of breast
CPT/HCPCS: 31500; 36140; 36415; 36569; 36584; 36600; 71045; 74018; 77001; 77002; 78582; 80048; 80053; 80061; 81001; 82550; 82553; 82805; 82948; 83605; 83735; 83880; 84132; 84436; 84443; 84479; 84484; 85025; 85379; 85610; 85730; 87040; 87070; 87086; 87186; 87205; 93005; 93306; 93452; 93458; 93970; 94002; 94003; 94640; 94660; 94667; 94668; 96360; 96361; 96365; 96366; 96372; 96376; 99285; A9540; C1751; C1766; C1898; J0360; J0456; J0692; J1644; J1650; J1940; J2001; J2250; J2270; J2765; J2920; J2997; J3480; J7030; J7040; Q9967

== ENCOUNTER → 2017-10-08 | Outpatient (CLI) | payer MEDICARE, BC ==
--- NOTE | 2017-10-08 15:42 | Diagnostic Imaging Report ---
PROCEDURE: CT CHEST WITHOUT CONTRAST CT scan of the chest WITHOUT intravenous contrast, using standard protocol. TECHNIQUE: The chest was scanned utilizing a multidetector helical scanner from the apex to the level of the adrenal glands. No IV contrast was administered because of physician request. Coronal and sagittal multiplanar reformations were obtained. DLP: 330.02 mGy-cm COMPARISON: Chest CT 06/21/2016, chest radiograph 08/18/2017 INDICATIONS: PNEUMONIA FINDINGS: Lines/tubes: None. Lungs and Airways: Moderate centrilobular and mild paraseptal emphysematous changes. A few bulla are again noted. Biapical pleural-parenchymal scarring, left greater than right. 0.3 cm pulmonary nodule in right middle lobe (series 3 image 65), unchanged. 0.6 cm nodule in the left upper lobe near the fissure with mild architectural distortion (series 3 image 21), likely related to scarring and unchanged. Left lower lobe punctate calcified granuloma, stable. Improved but persistent bronchial wall thickening and mucus plugging predominantly involving the lower lobes. Pleura: The pleural spaces are clear. Heart and mediastinum: The thyroid gland is normal. No significant mediastinal, hilar or axillary lymphadenopathy is seen. The heart and pericardium are within normal limits. Main pulmonary artery measures 2.9 cm. Ascending aorta measures 3.5 cm. Moderate atherosclerotic calcifications of the left anterior descending coronary artery. Abdomen: Small hiatal hernia. Colonic diverticula at the visualized portions of the splenic flexure. Otherwise, the limited views of the upper abdomen show no abnormality within the visualized liver, spleen, pancreas, or kidneys. The visualized portions of the adrenal glands are normal. Bones: The visualized bony thorax is within normal limits for age. IMPRESSION: Lower lobe bronchial wall thickening and mucus plugging likely related to chronic bronchitis in the setting of emphysema. Aspiration may have a similar appearance. Dictated by: Daryl Hodge M.D. on 10/08/2017 at 15:45 Electronically approved by: Daryl Hodge M.D. on 10/08/2017 at 15:45
== END ==
LOC: CT 14:45
PROVIDERS: ATTEND Internal Medicine
DX: Z87.01 Personal history of pneumonia (recurrent) (principal)
CPT/HCPCS: 71250

== ENCOUNTER → 2019-12-22 | Outpatient (CLI) | payer MEDICARE, BC ==
[~2019-12-22] MED LIST changes: +BIOTIN300 MCG PO; +LOSARTAN POTASS25 MG PO; +NYSTATIN100000 UNI PO; +VITAMIN B-121000 MCG PO
--- NOTE | 2019-12-22 09:49 | Diagnostic Imaging Report ---
EXAM: CT Chest WITHOUT intravenous contrast 12/22/2019 8:14 AM INDICATION: ^[id number] ^0814 ^HX OF PNEUMONIA COMPARISON: CT dated 10/08/2017 TECHNIQUE: Chest was scanned utilizing a multidetector helical scanner from the lung apex through the level of the adrenal glands without administration of IV contrast. Coronal and sagittal reformations were obtained. Routine protocol was performed. IV CONTRAST: None RADIATION DOSE: Total DLP: 471 mGy*cm. Dose modulation, iterative reconstruction, and/or weight based adjustment of the mA/kV was utilized to reduce the radiation dose to as low as reasonably achievable. COMPLICATIONS: None FINDINGS: LINES/ TUBES: None. LUNGS AND AIRWAYS: Central airways are patent. There is stable mild lower lobe bronchiectasis. There are stable severe centrilobular emphysematous changes diffusely throughout the lungs including a few areas of paraseptal blebs. Stable larger blebs versus confluent emphysematous changes within the upper aspect of the left lower lobe, lingula and along the basilar dependent aspects of the lung bases. No new suspicious pulmonary mass is identified. Stable apical pleural thickening. Stable calcified granuloma within the upper aspect of the left lower lobe (image #43). Stable multifocal areas of scarring within the periphery of the lungs and especially at the lung bases dependently. Stable 2 mm nodule in the left upper lobe (image 23). Stable 3 mm nodule within the anterior left upper lobe (image 45). Stable 2 mm subpleural nodule in the right lower lobe (image 86). PLEURA: Negative for pneumothorax or pleural effusion. HEART AND MEDIASTINUM: The thyroid gland is normal. No mediastinal, hilar or axillary lymphadenopathy. There are stable multiple nonenlarged mediastinal lymph nodes and compared to prior CT. The heart is normal in size.. There is no pericardial effusion. Prominent coronary artery calcifications within the proximal LAD are noted. UPPER ABDOMEN: Unremarkable. BONES: Negative for acute osseous abnormality. No suspicious lytic or blastic lesion. Stable exaggerated thoracic kyphosis with advanced multilevel degenerative changes throughout the thoracic spine. Stable slight retrolisthesis of T12 on L1. SOFT TISSUES: Soft tissues are unremarkable. Stable postsurgical changes from left mastectomy. IMPRESSION: 1. Similar appearance of hyperexpanded lungs with diffuse severe centrilobular and paraseptal emphysematous changes with scattered blebs and diffuse interstitial scarring. Stable 2 to 3 mm pulmonary nodules as described above when compared to 10/08/2017. No new suspicious pulmonary nodule or mass. No specific follow-up required for these nodules. If patient qualifies consider annual low dose CT chest screening. 2. Negative for focal consolidation or suspicious infiltrate. Signed by: Ted Batista MD on 12/22/2019 9:45 AM
== END ==
LOC: CT 07:29
PROVIDERS: ATTEND Internal Medicine
DX: Z87.01 Personal history of pneumonia (recurrent) (principal)
CPT/HCPCS: 71250

== ENCOUNTER 2019-12-23 09:18 | Inpatient (IN) | payer MEDICARE, BC ==
[~2019-12-23] VITALS: Ht 188 cm; Wt 66.2 kg
[~2019-12-23 09:18] MED LIST changes: -BIOTIN300 MCG PO; -LOSARTAN POTASS25 MG PO; -NYSTATIN100000 UNI PO; -VITAMIN B-121000 MCG PO
[2019-12-23] MEDS ORDERED: METHYLPREDNISOLONE SOD SUCC 125 MG/2ML VIAL IV ONE (09:30)
[2019-12-23] MEDS ORDERED: CEFEPIME 1GM/NS 0.9% 50 ML 50 ML IV STA (09:31)
[2019-12-23] MEDS ORDERED: LEVOFLOXACIN 500MG/D5W 100ML 100 ML IV STA (09:37)
--- NOTE | 2019-12-23 09:38 | NUR ---
BILATERAL BP'S DONE PER ER . RBVO OK TO USE LEFT ARM SINCE HX OF MASTECTOMY IN 1989 WITH NO HX OF LYMPHEDEMA PER PT. RIGHT BP 183/145 AND LEFT BP 222/91
--- NOTE | 2019-12-23 09:51 | Emergency Department Note ---
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 . Historian: Patient, Family Member Arrival Mode: Car Master Pilot Required: No Onset (how long ago): week(s) Severity: mild Duration (how long): week(s) Timing of current episode: constant Progression: worsening Relieving factors: none Past Medical/Family History Physician Review I have reviewed the patient's past medical and family history. Any updates have been documented here. Past Medical History Recent Fever: No Clinical Suspicion of Infectio: No New/Unexplained Change in Ment: No Past Medical History: COPD, Hypothyroidism, Cancer, GERD Other Medical History: GERD GLAUCOMA BREAST CA glaucoma, history of left breast cancer Past Surgical History: Cholecysctectomy Other Surgery: LT RADICAL MASTECTOMY, CATARACT BILATERAL, KNEE REPLACEMENTS BILATERAL,BLADDER SUSPENSION, DRAIN FLUID FROM LUNG X 2, radical mastectomy. She has a Social History Alcohol Use: Social Other Last Tetanus: UNK Review of Systems Review of Systems Constitutional: Reports no symptoms EENTM: Reports no symptoms Cardiovascular: Reports no symptoms Respiratory: Reports as per HPI, Reports cough, Reports dyspnea Gastrointestinal: Reports no symptoms Genitourinary: Reports no symptoms Musculoskeletal: Reports no symptoms Integumentary: Reports no symptoms Neurological: Reports no symptoms Psychological: Reports no symptoms Endocrine: Reports no symptoms Hematological/Lymphatic: Reports no symptoms Physical Exam Related Data Allergies: Coded Allergies: Penicillins (Verified Allergy, Unknown, 06/19/16) ciprofloxacin (Verified Allergy, Unknown, 06/19/16) hydromorphone (Verified Allergy, Unknown, 08/13/17) nauseas levofloxacin (Verified Allergy, Unknown, 06/19/16) Triage Vital Signs Vital Signs Date Time Temp Pulse Resp B/P (MAP) Pulse Ox O2 Delivery O2 Flow Rate FiO2 12/23/19 09:34 98.9 108 32 183/145 98 Room Air Vital signs reviewed: Yes Physical Exam CONSTITUTIONAL Constitutional: Present ill appearing HENT HENT: Present normocephalic, Present atraumatic, Present oropharynx clear/moist, Present nose normal HENT L/R: Present left ext ear normal, Present right ext ear normal EYES Eyes: Reports PERRL, Reports conjunctivae normal NECK Neck: Present ROM normal PULMONARY Pulmonary: Present respiratory distress; Absent breath sounds normal CARDIOVASCULAR Cardiovascular: Present regular rhythm, Present heart sounds normal, Present capillary refill normal, Present normal rate GASTROINTESTINAL Abdominal: Present soft, Present nontender, Present bowel sounds normal GENITOURINARY Genitourinary: Present exam deferred SKIN Skin: Present warm, Present dry MUSCULOSKELETAL Musculoskeletal: Present ROM normal NEUROLOGICAL Neurological: Present alert, Present oriented x 3, Present no gross motor or sensory deficits PSYCHOLOGICAL Psychological: Present mood/affect normal, Present judgement normal Results Laboratory Lab results reviewed: Yes Imaging Imaging results reviewed: Yes Impressions Impression: 1. Scan findings represent a LOW probability for acute pulmonary embolic disease based on the perfusion-only PIOPED II criteria. Concurrent ventilation study would have been helpful to further characterize obstructive lung disease but would not alter the assigned probability for acute PE. 2. Although the typical findings of chronic thromboembolic pulmonary hypertension are not present, the patchy perfusion pattern does not entirely exclude this diagnosis. 3. Scan findings are compatible with diffuse parenchymal and/or obstructive lung disease. Relatively decreased perfusion to the LLL without discrete segmental perfusion defects is likely related to relatively more severe obstructive lung disease. Signed by: Dr. Caitlin Whaley M.D. on 12/24/2019 9:41 PM Critical Care Time Total Critical Care Time (min): 35 Critical care time exclusive o: separately billable procedures Critcal care necessary due to: respiratory failure Assessment & Plan Medical Decision Making MDM 84-year-old female arrives to the ED shortness of breath, history of advanced COPD. Concerns a COPD exacerbation noted on exam and patient required hospi talization for IV steroids, albuterol/Atrovent nebulizations as well as respiratory monitoring. No concerns of infectious etiology at time of admission, patient's underlying shortness of breath secondary to COPD, no concerns or pneumonia at time of admission. Assessment & Plan Final Impression: (1) COPD exacerbation (2) Acute and chronic respiratory failure Depart Disposition: ADMITTED Last Vital Signs Date Time Temp Pulse Resp B/P (MAP) Pulse Ox O2 Delivery O2 Flow Rate FiO2 12/23/19 09:34 98.9 108 32 183/145 98 Room Air Home Meds Reported Medications Cyanocobalamin (VITAMIN B-12) 1,000 Mcg Tab, 1000 MCG PO DAILY, #30 TAB 12/23/19 Biotin (BIOTIN) 300 Mcg Tablet, 500 MCG PO DAILY 12/23/19 Nystatin (NYSTATIN) 100,000 Unit/1 Ml Oral.susp, 2 ML PO HS PRN for SORE THROAT, ML 12/23/19 Losartan Potassium (LOSARTAN POTASSIUM) 25 Mg Tablet, 50 MG PO DAILY 12/23/19 Albuterol Sulfate (ALBUTEROL SULFATE) 0.63 Mg/3 Ml Vial.neb, 0.63 MG INH qid x 20days PRN 03/29/13 Albuterol Sulf* (PROAIR HFA INHALER*) 8.5 Gm Inh, INH PRN PRN, #1 03/26/13 Brimonidine Tartrate (COMBIGAN EYE DROPS) 5 Ml Drpette, 0.2-0.5 BID 03/26/13 Calcium Carb/Vit D3/Minerals (CALTRATE-600 WITH VIT D TAB) 1 Each Tablet, 600 MG PO BID, #1 03/26/13 Multivitamin (MULTI-DAY VITAMINS) 1 Each Tablet, 1 PO DAILY 03/26/13 Latanoprost (XALATAN) 2.5 Ml Drops, 0.005 .ROUTE DAILY 03/26/13 Amlodipine Besylate (AMLODIPINE BESYLATE) 10 Mg Tablet, 2.5 MG PO DAILY 03/26/13 Esomeprazole Magnesium (NEXIUM) 40 Mg Capsule.dr, 40 MG PO BID, #1 03/26/13 Montelukast Sodium (MONTELUKAST SODIUM) 10 Mg Tablet, 10 MG PO DAILY 03/26/13 Levothyroxine Sodium (SYNTHROID) 50 Mcg Tab, 50 MCG PO DAILY 03/26/13 Fluticasone/Salmeterol (ADVAIR 250-50 DISKUS) 1 Each Disk.w.dev, 1 BU BID, #1 03/26/13 Medications in the ED Methylprednisolone Sodium Succinate 125 mg ONCE ONCE IV ; Start 12/23/19 at 09:30; Stop 12/23/19 at 09:31; Status DC Cefepime HCl 50 ml @ 100 mls/hr Q24H STAT IV ; Start 12/23/19 at 09:31; Stop 12/23/19 at 09:40; Status DC Albuterol/ Ipratropium 3 ml RQ4H PRN NEB SHORTNESS OF BREATH; Start 12/23/19 at 09:45; Stop 01/22/20 at 09:44 Levofloxacin/ Dextrose 100 ml @ 100 mls/hr NOW STAT IV ; Start 12/23/19 at 09:37; Stop 12/23/19 at 10:36; Status PILAR [place]ITTLE, Dec 23, 2019 09:50
[2019-12-23 09:52] LABS: BASOPHILS # (AUTO) 0.1 (0.0-0.1); BASOPHILS % 1.4 % (0.0-1.0); EOSINOPHILS # (AUTO) 0.5 (0.0-0.4); HEMATOCRIT 37.9 % (34.2-44.1); HEMOGLOBIN 12.2 g/dL (12.0-16.0); LYMPHOCYTES # (AUTO) 1.4 (1.0-3.2); LYMPHOCYTES % 24.1 % (18.0-39.1); MEAN CORPUSCULAR HEMOGLOBIN 31.5 pg (28-32); MEAN CORPUSCULAR HGB CONC 32.2 g/dL (31-35); MEAN CORPUSCULAR VOLUME 97.9 fL (81-99); MONOCYTES # (AUTO) 0.8 (0.2-0.8); MONOCYTES % 14.2 % (4.4-11.3); PLATELET COUNT 238 x10e3/uL (140-360); RED BLOOD COUNT 3.87 x10e6/uL (3.6-5.1); RED CELL DISTRIBUTION WIDTH 13.6 % (11.7-14.4)
--- OUTSIDE RECORDS SUMMARY | 2019-12-23 09:53 | XMS REPORT | Continuity of Care Document ---
Author Author [facility] t Organization [facility] Address [address] [place] [address] Phone Unavailable Care Team Providers Care Customer Expert Name Role Phone Ori ABARCA MD PCP MARAH CARDONA Attphys Unavailable Ori ABARCA Attphys Unavailable Ori ABARCA Admphys Unavailable Payers Payer Name Policy Type Policy Number Effective Date Expiration Date Ori swenson Psychiatric [id number] 2015 00:00:00 [facility] Medicare A & B [id number] 1999 00:00:00 [facility] Problems Condition Name Condition Details Condition Category Status Onset Date Resolution Date Last Treatment Date Treating Clinician Comments Source Acute renal failure Acute renal failure Problem Active [facility] Obstructive chronic bronchitis with exacerbation COPD exacerbati on Problem Active [facility] Cervical radiculopathy Cervical radiculopathy Problem Active [facility] Pneumonia Pneumonia Problem Active [facility] Respiratory failure with hypoxia and hypercapnia Respi ratory failure with hypoxia and hypercapnia Problem Active [facility] Allergies, Adverse Reactions, Alerts Allergy Name Allergy Type Status Severity Reaction(s) Onset Date Inacti ve Date Treating Clinician Comments Source Hydromorphone Allergy to Substance Active 2017-08-13 00:00: 00 [facility] Penicillin Allergy to Substance Active 2016-06-19 00:00:00 [facility] Ciprofloxacin Allergy to Substance Active 2016-06-19 00:00: 00 [facility] Levofloxacin Allergy to Substance Active 2016-06-19 00:00:0 0 [facility] Medications Ordered Medication Name Filled Medication Name Start Date Stop Da te Current Medication? Ordering Clinician Indication Dosage Frequency Signature (SIG) Comments Components Source Albuterol Sulfate 0.63 Mg/3 Ml Vial.neb Albuterol Sulfate 0. 63 Mg/3 Ml Vial.neb Yes .63 Qid X 20DAYS as needed [facility] Albuterol Sulfate (Proair Hfa Inhaler*) 8.5 Gm Inh Alb uterol Sulfate (Proair Hfa Inhaler*) 8.5 Gm Inh Yes As Needed as need ed [facility] Amlodipine Besylate 10 Mg Tablet Amlodipine Besylate 10 Mg Tablet Yes 10 Daily [facility] Brimonidine Tartrate (Combigan Eye Drops) 5 Ml Drpette Brimonidine Tartrate (Combigan Eye Drops) 5 Ml Drpette Yes .2 Twic e A Day [facility] Calcium Carb/Vit D3/Minerals (Caltrate-600 With Vit D Tab) 1 Each Tablet Calcium Carb/Vit D3/Minerals (Caltrate-600 With Vit D Tab) 1 Each Tablet Yes 600 Twice A Day [facility] Doxycycline Hyclate 100 Mg Capsule Doxycycline Hyclate 100 Mg Capsule Yes 100 Twice A Day [facility] Esomeprazole Magnesium (Nexium) 40 Mg Capsule.dr Barba prazole Magnesium (Nexium) 40 Mg Capsule. Yes 40 Twice A Day [facility] Fluticasone/Salmeterol (Advair 250-50 Diskus) 1 Each D isk.w.dev Fluticasone/Salmeterol (Advair 250-50 Diskus) 1 Each Disk.w.dev Yes 1 Twice A Day [facility] Latanoprost (Xalatan) 2.5 Ml Drops Latanoprost (Xalatan) 2.5 Ml Drops Yes .005 Daily [facility] Levothyroxine Sodium (Synthroid) 50 Mcg Tab Levothyrox ine Sodium (Synthroid) 50 Mcg Tab Yes 50 Daily [facility] [place] Montelukast Sodium 10 Mg Tablet Montelukast Sodium 10 Mg Tablet Yes 10 Daily [facility] Multivitamin (Multi-Day Vitamins) 1 Each Tablet Multiv itamin (Multi-Day Vitamins) 1 Each Tablet Yes 1 Daily [facility] Clarithromycin 500 Mg Tablet, 500 Mg Oral Clarithromyc in 500 Mg Tablet, 500 Mg Oral 2016-06-27 00:00:00 No 500 Twice A Day [facility] Prednisone 5 Mg Tablet, 20 Mg Oral Prednisone 5 Mg Tablet, 20 Mg Oral 2016-06-27 00:00:00 No 20 Twice A Day as neede d for Cough [facility] Clarithromycin 500 Mg Tablet, 500 Mg Oral Clarithromyc in 500 Mg Tablet, 500 Mg Oral 2016-06-19 00:00:00 No 500 Twice A Day as nee ded for Daily [facility] Levofloxacin (Levaquin) 500 Mg Tablet, 500 Mg Oral Lev ofloxacin (Levaquin) 500 Mg Tablet, 500 Mg Oral 2013-05-02 00:00:00 No 500 D aily X 10DAYS [facility] Prednisone 10 Mg Tab.ds.pk, 10 Mg Oral Prednisone 10 Mg Tab.ds.p k, 10 Mg Oral 2013-05-02 00:00:00 No 10 See Instructions [facility] Procedures Procedure Date / Time Performed Performing Clinician [facility] e X-ray of chest, two views 2017-03-29 00:00:00 JENNIFER LOGAN CH, I [facility] Encounters Start Date/Time End Date/Time En[facility] ID Source 2017-08-12 07:55:00 2017-08-23 12:32:00 Discharged Inpatient ER LIZ ABARCA [facility] [id number] [facility] 2017-03-27 22:22:00 2017-04-01 17:40:00 [id number] Results Test Description Test Time Test Comments Results Result Comments Source CT CHEST WO 2019-12-22 09:33:00 [place] [address] Patient Name: PAXTON SWAIN MR #: [id number] : 1935 Age/Sex: 84/F Req #: [id number] [facility] Physician: Ordered by: MARAH CARDONA MD Report #: [id number] Location: CT Room/Bed: Procedure: CT/CT CHEST WO Exam Date: 12/22/19 Exam Time: 813 REPORT STATUS: Signed EXAM: CT Chest WITHOUT intravenous contrast 12/22/2019 8:14 AM INDICATION: [id number] HX OF PNEUMONIA COMPARISON: CT dated 10/08/2017 TECHNIQUE: Chest was scanned utilizing a multidetector helical scanner from the lung apex through the level of the adr enal glands without administration of IV contrast. Coronal and sagittal reformations were obtained. Routine protocol was performed. IV CONTRAST: None RADIATION DOSE: Total DLP: 471 mGy*cm. Dose modulation, iterative reconstruction, and/or weight based adjustment of the mA/kV was utilized to reduce the radiation dose to as low as reasonably achievable. COMPLICATIONS: None FINDINGS: LINES/ TUBES: None. LUNGS AND AIRWAYS: Central airways are patent. There is stable mild lower lobe bronchiectasis. There are stable severe centrilobular emphysematous changes diffusely throughout the lungs including a few areas of paraseptal blebs. Stable larger blebs versus confluent emphysematous changes within the upper aspect of the left lower lobe, lingula and along the basilar dependent aspects of the lung bases. No new suspicious pulmonary mass is identified. Stable apical pleural thickening. Stable calcified granuloma within the upper aspect of the left lower lobe (i mage #43). Stable multifocal areas of scarring within the periphery of the lungs and especially at the lung bases dependently. Stable 2 mm nodule in the left upper lobe (image 23). Stable 3 mm nodule within the anterior left upper lobe (image 45). Stable 2 mm subpleural nodule in the right lower lobe (image 86). PLEURA: Negative for pneumothorax or pleural effusion. HEART AND MEDIASTINUM: The thyroid gland is normal. No mediastinal, hilar or axillary lymphadenopathy. There are stable multiple nonenlarged mediastinal lymph nodes and compared to prior CT. The heart is normal in size.. There is no pericardial effusion. Prominent coronary artery calcifications within the proximal LAD are noted. UPPER ABDOMEN: Unremarkable. BONES: Negative for acute osseous abnormality. No suspicious lytic or blastic lesion. Stable exaggerated thoracic kyphosis with advanced multilevel degenerative changes throughout the thoracic spine. Stable slight retrolisthesis of T12 on L1. SOFT TISSUES: Soft tissues are unremarkable. Stable postsurgical changes from left mastectomy. IMPRESSION: 1. Similar appearance of hyperexpanded lungs with diffuse severe centrilobular and paraseptal emphysematous changes with scattered blebs and diffuse interstitial scarring. Stable 2 to 3 mm pulmonary nodules as described above when compared to 10/08/2017. No new suspicious pulmonary nodule or mass. No specific follow-up required for these nodules. If patient qualifies consider annual low dose CT chest screening. 2. Negative for focal consolidation or suspicious infiltrate. Signed by: Willard Batista MD on 12/22/2019 9:45 AM Dictated By: WILLARD BATISTA MD 4 Transcribed By: BRIANA on 12/22/19944 COPY TO: MARAH CARDONA MD CT CHEST WO 2017-10-08 15:45:00 [place] [address] Patient Name: PAXTON SWAIN MR #: [id number] : 1935 Age/Sex: 82/F Req #: [id number] Adm Physician: Ordered by: MARAH CARDONA MD Report #: [id number] Location: CT Room/Bed: Procedure: [id number] CT/CT CHEST WO Exam Date: 10/08/17 Exam Time: 1515 REPORT STATUS: Signed PROCEDURE: CT CHEST WITHOUT CONTRAST CT scan of the chest WITHOUT intravenous contrast, using standard protocol. TECHNIQUE: The chest was scanned utilizing a multidetector helical scanner from the apex to the level of the adrenal glands. No IV contrast was administered because of physician request. Coronal and sagittal multiplanar reformations were obtained. DLP: 330.02 mGy-cm COMPARISON: Chest CT 06/21/2016, chest radiograph 08/18/2017 INDICATIONS: PNEUMONIA FINDINGS: Lines/tubes: None. Lungs and Airways: Moderate centrilobular and mild paraseptal emphysematous changes. A few bulla are again noted. Biapical pleural-parenchymal scarring, left greater than right. 0.3 cm pulmonary nodule in right middle lobe (series 3 image 65), unchanged. 0.6 cm nodule in the left upper lobe near the fissure with mild architectural distortion (series 3 image 21), likely related to scarring and unchanged. Left lower lobe punctate calcified granuloma, stable. Improved but persistent bronchial wall thickening and mucus plugging predominantly involving the lower lobes. Pleura: The pleural spaces are clear. Heart and mediastinum: The thyroid gland is normal. No significant mediastinal, hilar or axillary lymphadenopathy is seen. The heart and pericardium are within normal limits. Main pulmonary artery measures 2.9 cm. Ascending aorta measures 3.5 cm. Moderate atherosclerotic calcifications of the left anterior descending coronary artery. Abdomen: Small hiatal hernia. Colonic diverticula at the visualized portions of the splenic flexure. Otherwise, the limited views of the upper abdomen show no abnormality within the visualized liver, spleen, pancreas, or kidneys. The visualized portions of the adrenal glands are normal. Bones: The visualized bony thorax is within normal limits for age. IMPRESSION: Lower lobe bronchial wall thickening and mucus plugging likely related to chronic bronchitis in the setting of emphysema. Aspiration may have a similar appearance. Dictated by: Daryl Low M.D. on 10/08/2017 at 15:45 Electronically approved by: Daryl Low M.D. on 10/08/2017 at 15:45 Dictated By: DARYL LOW MD 44 Transcribed By: ROXANA on 10/08/171544 COPY TO: MARAH CARDONA MD Bedside Glucose 2017-08-23 08:19:00 Test Item Bedside Glucose (test code = 98258-8) 81 70-120 Meter ID: [id number] Regional Medical Centerodium Level 2017-08-22 06:24:00* Test Item Value Reference Range Interpretation Comments Sodium Level (test code = 2951-2) 132 136-145 L [facility]Potassium Cgiuf3472-66-42 06:24:00* Test Item Value Reference Range Interpretation Comments Potassium Level (test code = 2823-3) 3.8 3.5-5.1 [facility]inteChloride Twycq0834-21-84 06:24:00* Test Item Value Reference Range Interpretation Comments Chloride Level (test code = 2075-0) 102 98-107 [facility]inteCarbon Dioxide Yylyt2311-49-00 06:24:00* Test Item Value Reference Range Interpretation Comments Carbon Dioxide Level (test code = 2028-9) 24 22-29 [facility] PointeAnion Wof0755-38-18 06:24:00* Test Item Value Reference Range Interpretation Comments Anion Gap (test code = 42789-9) 9.8 8-16 [facility]inteBlood Urea Kigswbea3680-95-72 06:24:00* Test Item Value Reference Range Interpretation Comments Blood Urea Nitrogen (test code = 3094-0) 61 7-26 H [facility]inteCreatinine2018-05-04 06:24:00* Test Item Value Reference Range Interpretation Comments Creatinine (test code = 2160-0) 1.43 0.57-1.11 H [facility]inteBUN/Creatinine Azfsr9925-66-62 06:24:00* Test Item Value Reference Range Interpretation Comments BUN/Creatinine Ratio (test code = 3097-3) 43 6-25 H [facility] PointeEstimat Glomerular Filtration Rate 2017-08-22 06:24:00* Test Item Value Reference Range Interpretation Comments Estimat Glomerular Filtration Rate (test code = 85631-0) 35 >60 L Ranges were taken from the National Kidney Disease Education Program and the [facility] [employer] literature.Reference ranges:60 or greater: Vsdxrb71-45 ( for 3 consecutive months): Chronic kidney disease 15 or less: Kidney failureBaylor Scott & [facility] Medical Center – [facility] PointeGlucose Unlng0598-91-82 06:24:00* Test Item Value Reference Range Interpretation Comments Glucose Level (test code = UMD7855) 112 74-118 [facility]inteCalcium Bxzdj9131-48-81 06:24:00* Test Item Value Reference Range Interpretation Comments Calcium Level (test code = 30846-1) 9.0 8.4-10.2 [facility]inteTotal Ayyiswlht8540-67-78 06:24:00* Test Item Value Reference Range Interpretation Comments Total Bilirubin (test code = 1975-2) 0.4 0.2-1.2 [facility] PointeAspartate Amino Transf (AST/SGOT) 2017-08-22 06:24:00* Test Item Value Reference Range Interpretation Comments Aspartate Amino Transf (AST/SGOT) (test code = Aspartate Amino Transf (AST/SGOT)) 11 5-34 [facility] PointeAlanine Aminotransferase (ALT/SGPT) 2017-08-22 06:24:00* Test Item Value Reference Range Interpretation Comments Alanine Aminotransferase (ALT/SGPT) (test code = 1742-6) 18 0-55 [facility]inteTotal Ntzwocb4366-00-32 06:24:00* Test Item Value Reference Range Interpretation Comments Total Protein (test code = 2885-2) 6.8 6.5-8.1 [facility] PointeAlbumin2018-05-04 06:24:00* Test Item Value Reference Range Interpretation Comments Albumin (test code = 1751-7) 2.6 3.5-5.0 L [facility]inteGlobulin2018-05-04 06:24:00* Test Item Value Reference Range Interpretation Comments Globulin (test code = 65453-1) 4.2 2.3-3.5 H [facility] PointeAlbumin/Globulin Pymjk3845-81-68 06:24:00 * Test Item Value Reference Range Interpretation Comments Albumin/Globulin Ratio (test code = 1759-0) 0.6 0.8-2.0 L [facility]inteAlkaline Vutnbufbnef2788-53-46 06:24:00* Test Item Value Reference Range Interpretation Comments Alkaline Phosphatase (test code = 6768-6) 70 40-150 [facility] PointeThyroid Stimulating Hormone (TSH) 2017-08-21 07:13:00* Test Item Value Reference Range Interpretation Comments Thyroid Stimulating Hormone (TSH) (test code = 80557-1) 1.825 0.350-4.940 [facility]inteWhite Blood Rkzul6631-30-73 06:29:00* Test Item Value Reference Range Interpretation Comments White Blood Count (test code = 6690-2) 9.08 4.8-10.8 [facility]inteRed Blood Wxacd8963-21-25 06:29:00* Test Item Value Reference Range Interpretation Comments Red Blood Count (test code = 789-8) 3.84 3.6-5.1 [facility]inteHemoglobin2018-05-03 06:29:00* Test Item Value Reference Range Interpretation Comments Hemoglobin (test code = 95643-2) 12.1 12.0-16.0 [facility]inteHematocrit2018-05-03 06:29:00* Test Item Value Reference Range Interpretation Comments Hematocrit (test code = 4544-3) 35.0 34.2-44.1 [facility] PointeMean Corpuscular Xufazl8650-41-96 06:29:00* Test Item Value Reference Range Interpretation Comments Mean Corpuscular Volume (test code = 787-2) 91.1 81-99 [facility] PointeMean Corpuscular Oftkigrldq8294-31-90 06:29:00* Test Item Value Reference Range Interpretation Comments Mean Corpuscular Hemoglobin (test code = 785-6) 31.5 28-32 [facility] PointeMean Corpuscular Hemoglobin Concent 2017-08-21 06:29:00* Test Item Value Reference Range Interpretation Comments Mean Corpuscular Hemoglobin Concent (test code = 786-4) 34.6 31-35 [facility] PointeRed Cell Distribution Xftbp5058-55-03 06:29:00* Test Item Value Reference Range Interpretation Comments Red Cell Distribution Width (test code = 76910-3) 15.2 11.7 -14.4 H [facility] PointePlatelet Rtkau0673-81-40 06:29:00* Test Item Value Reference Range Interpretation Comments Platelet Count (test code = 777-3) 174 140-360 [facility] PointeNeutrophils (%) (Auto)2017-08-21 06:29:00 * Test Item Value Reference Range Interpretation Comments Neutrophils (%) (Auto) (test code = 08347-4) 79.7 38.7-80.0 [facility] PointeLymphocytes (%) (Auto)2017-08-21 06:29:00 * Test Item Value Reference Range Interpretation Comments Lymphocytes (%) (Auto) (test code = 736-9) 11.5 18.0-39.1 L [facility]inteMonocytes (%) (Auto)2017-08-21 06:29:00* Test Item Value Reference Range Interpretation Comments Monocytes (%) (Auto) (test code = 5905-5) 8.3 4.4-11.3 [facility]inteEosinophils (%) (Auto)2017-08-21 06:29:00 * Test Item Value Reference Range Interpretation Comments Eosinophils (%) (Auto) (test code = 713-8) 0.0 0.0-6.0 [facility]inteBasophils (%) (Auto)2017-08-21 06:29:00* Test Item Value Reference Range Interpretation Comments Basophils (%) (Auto) (test code = 706-2) 0.1 0.0-1.0 [facility]inteIM GRANULOCYTES %2017-08-21 06:29:00* Test Item Value Reference Range Interpretation Comments IM GRANULOCYTES % (test code = IM GRANULOCYTES %) 0.4 0.0- 1.0 [facility]inteNeutrophils # (Auto)2017-08-21 06:29:00* Test Item Value Reference Range Interpretation Comments Neutrophils # (Auto) (test code = 751-8) 7.2 2.1-6.9 H [facility]inteLymphocytes # (Auto)2017-08-21 06:29:00* Test Item Value Reference Range Interpretation Comments Lymphocytes # (Auto) (test code = 42291-5) 1.0 1.0-3.2 [facility]inteMonocytes # (Auto)2017-08-21 06:29:00* Test Item Value Reference Range Interpretation Comments Monocytes # (Auto) (test code = 742-7) 0.8 0.2-0.8 [facility]inteEosinophils # (Auto)2017-08-21 06:29:00* Test Item Value Reference Range Interpretation Comments Eosinophils # (Auto) (test code = 711-2) 0.0 0.0-0.4 [facility]inteBasophils # (Auto)2017-08-21 06:29:00* Test Item Value Reference Range Interpretation Comments Basophils # (Auto) (test code = 704-7) 0.0 0.0-0.1 [facility] PointeAbsolute Immature Granulocyte (auto 2017-08-21 06:29:00* Test Item Value Reference Range Interpretation Comments Absolute Immature Granulocyte (auto (oskar t code = Absolute Immature Granulocyte (auto) 0.04 0-0.1 [facility] PointeMagnesium Ncdkv3927-50-92 06:26:00* Test Item Value Reference Range Interpretation Comments Magnesium Level (test code = 63065-8) 2.1 1.3-2.1 [facility] PointeArterial Blood yX0302-51-05 08:47:00* Test Item Value Reference Range Interpretation Comments Arterial Blood pH (test code = 2744-1) 7.37 7.31-7.41 [facility] PointeArterial Blood Partial Pressure CO2 2017-08-17 08:47:00* Test Item Value Reference Range Interpretation Comments Arterial Blood Partial Pressure CO2 (test code = 2018-) 37 41-51 L [facility] PointeArterial Blood Partial Pressure O2 2017-08-17 08:47:00* Test Item Value Reference Range Interpretation Comments Arterial Blood Partial Pressure O2 (test code = 2018-11) 116 80-105 H [facility] PointeArterial Blood [id number] 08:47:00* Test Item Value Reference Range Interpretation Comments Arterial Blood HCO3 (test code = 1960-4) 21 23-28 L [facility] PointeArterial Blood Base Orvehr0464-70-41 08:47:00* Test Item Value Reference Range Interpretation Comments Arterial Blood Base Excess (test code = 1925-7) -4.0 -2-3 L [facility] PointeArterial Blood Oxygen Saturation 2017-08-17 08:47:00* Test Item Value Reference Range Interpretation Comments Arterial Blood Oxygen Saturation (test code = 2708-6) 98.0 95-98 [facility] PointeFiO22018-04-29 08:47:00* Test Item Value Reference Range Interpretation Comments FiO2 (test code = FiO2) 40 CPAP PS 7 PEEP 5 FIO2 40%[facility] Centerputum Culture 2017-08-17 06:40:00* Test Item Value Reference Range Interpretation Comments Sputum Culture (test code = 624-7) Organism: PSEUDOMONAS AERUGINOSA [facility] PointeBlood Juvvlfn2031-26-29 06:01:00* Test Item Value Reference Range Interpretation Comments Blood Culture (test code = 20031519) NO GROWTH AFTER 5 DAYS, FINAL REPORT [facility] PointeProthrombin Ptra3752-23-65 06:34:00* Test Item Value Reference Range Interpretation Comments Prothrombin Time (test code = 5902-2) 13.6 11.9-14.5 [facility] PointeProthromb Time International Ratio 2017-08-15 06:34:00* Test Item Value Reference Range Interpretation Comments Prothromb Time International Ratio (test code = 6301-6) 1.13 Oral Anticoagulant Therapy INR Values:1. Low Intensity Therapy 1.5 - 2.02 . Moderate Intensity Therapy 2.0 - 3.03. High Intensity Therapy(1) 2.5 - 3. 54. High Intensity Therapy(2) 3.0 - 4.05. Panic Value INR > 5.0 [facility] PointeActivated Partial Thromboplast Time 2017-08-15 06:34:00* Test Item Value Reference Range Interpretation Comments Activated Partial Thromboplast Time (test code = 23477-9) 28.0 23.8-35.5 [facility] PointeTriglycerides Rtnno9536-75-34 07:25:00* Test Item Value Reference Range Interpretation Comments Triglycerides Level (test code = 2571-8) 53 0-149 [facility] PointeCholesterol Liinm3286-69-40 07:25:00* Test Item Value Reference Range Interpretation Comments Cholesterol Level (test code = 2093-3) 107 0-199 Less than 200 mg/dL Low Jsvr743 - 239 mg/dL Borderline Ybsk417 m g/dl and greater High Risk [facility] PointeLDL Ewddstamebr2620-94-68 07:25:00* Test Item Value Reference Range Interpretation Comments LDL Cholesterol (test code = 2089-1) 43 60-130 L [facility] PointeHDL Kqbjkugypvy0522-47-41 07:25:00* Test Item Value Reference Range Interpretation Comments HDL Cholesterol (test code = 2085-9) 53 40-60 [facility] [place] Tssyp9404-48-08 07:25:00 * Test Item Value Reference Range Interpretation Comments Cholesterol/HDL Ratio (test code = 9830-1) 2.0 3.0-3.6 L [facility]inteCreatine Kinase AE7412-63-14 18:56:00* Test Item Value Reference Range Interpretation Comments Creatine Kinase MB (test code = 91600-7) 7.00 0-5.0 H [facility] [place] PointeTroponin Z9424-52-41 18:56:00* Test Item Value Reference Range Interpretation Comments Troponin I (test code = KDW6962) 2.059 0-0.300 H Elevated result called to ALBERTO LUGO at 1855 on 08/12/17 by MARIANNE AMAYA.[facility] [place] [facility]inteCreatine Tpfcke8893-99-40 18:50:00* Test Item Value Reference Range Interpretation Comments Creatine Kinase (test code = 2157-6) 70 29-168 [facility] [place]inteFree Thyroxine Ilwor9586-30-82 09:53:00* Test Item Value Reference Range Interpretation Comments Free Thyroxine Index (test code = 59488-5) 2.1954 1.4-3.8 [facility]inteThyroxine (T4)2017-08-12 09:53:00* Test Item Value Reference Range Interpretation Comments Thyroxine (T4) (test code = 3026-2) 7.17 4.5-10.9 Our current method for Total T4 is not recommended for use as the only marker fo r evaluating patients for thyroid disorders.[facility] [place] PointeTriiodothyronine (T3) Xtfzif5858-55-92 09:53:00* Test Item Value Reference Range Interpretation Comments Triiodothyronine (T3) Uptake (test code = 3050-2) 30.62 22.5 -37.0 [facility] [place] PointeD-Dimer Quantitative (PE/DVT)2017-08-12 07:23:00* Test Item Value Reference Range Interpretation Comments D-Dimer Quantitative (PE/DVT) (test code = 51040-2) 884 0- 400 H As with all in vitro diagnostic tests, the test results should be interpreted by the physician in conjunction with clinical findings and other test results.Test results are reported in NEW D-dimer units(ug/mLFEU).[facility]inteUrine YKW4466-49-55 07:23:00* Test Item Value Reference Range Interpretation Comments Urine WBC (test code = 5821-4) 0-5 0-5 [facility]inte[facility]rine CQD2621-06-48 07:23:00* Test Item Value Reference Range Interpretation Comments Urine RBC (test code = 70210-6) 0-5 0-5 [facility] [place] [facility]inte[facility] Ayubnbkt6083-37-79 07:23:00* Test Item Value Reference Range Interpretation Comments Urine Bacteria (test code = 30686-9) NONE NONE [facility] [place] [facility] Epithelial Foshg5926-37-80 07:23:00 * Test Item Value Reference Range Interpretation Comments Urine Epithelial Cells (test code = 66669-6) NONE NONE [facility] [place] [facility]inte[facility]rine Lscod4472-27-69 06:53:00* Test Item Value Reference Range Interpretation Comments Urine Color (test code = 5778-6) STRAW YELLOW [facility] [place] [facility]inte[facility] Twtgwbl9461-85-86 06:53:00* Test Item Value Reference Range Interpretation Comments Urine Clarity (test code = 79146-7) CLEAR CLEAR [facility] Specific Iageylk5877-07-57 06:53:00 * Test Item Value Reference Range Interpretation Comments Urine Specific [place] (test code = 5811-5) 1.020 1.010-1.02 5 [facility] jY4051-03-68 06:53:00* Test Item Value Reference Range Interpretation Comments Urine pH (test code = 14856-5) 7 5-7 [facility] Leukocyte Ttynsaup8448-21-34 06:53:00* Test Item Value Reference Range Interpretation Comments Urine Leukocyte Esterase (test code = 5799-2) TRACE NEGATIVE H [facility] [place] [facility] Ydczsqw9035-63-04 06:53:00* Test Item Value Reference Range Interpretation Comments Urine Nitrite (test code = 95720-9) NEGATIVE NEGATIVE [facility] Gzlrshl2510-44-66 06:53:00* Test Item Value Reference Range Interpretation Comments Urine Protein (test code = 5804-0) 2+ NEGATIVE H [facility] [place] [facility] Glucose (UA)2017-08-12 06:53:00* Test Item Value Reference Range Interpretation Comments Urine Glucose (UA) (test code = 2349-9) NEGATIVE NEGATIVE [facility] [place] [facility]inte[facility] Stoguzv7014-41-58 06:53:00* Test Item Value Reference Range Interpretation Comments Urine Ketones (test code = 50824-8) NEGATIVE NEGATIVE [facility]inte[facility] Qhobdcygrinl5720-76-70 06:53:00* Test Item Value Reference Range Interpretation Comments Urine Urobilinogen (test code = 46774-4) 0.2 0.2-1 [facility] Nuskuivnr5430-17-63 06:53:00* Test Item Value Reference Range Interpretation Comments Urine Bilirubin (test code = 1978-6) NEGATIVE NEGATIVE [facility]inte[facility] Fmnut5521-14-71 06:53:00* Test Item Value Reference Range Interpretation Comments Urine Blood (test code = 04015-0) 1+ NEGATIVE H [facility] PointeB-Type Natriuretic Talxtnx4140-63-62 06:35:00* Test Item Value Reference Range Interpretation Comments B-Type Natriuretic Peptide (test code = 28367-3) 103.4 0-100 H [facility] PointeLactic Acid Tsdez8767-20-23 06:12:00* Test Item Value Reference Range Interpretation Comments Lactic Acid Level (test code = Lactic Acid Level) 17.7 4.5- 19.8 [facility] [place] PointeCHEST SINGLE (PORTABLE) [facility] [address] [place] [address] Patient Name: PAXTON SWAIN MR #: [id number] : 1935 Age/Sex: 82/F Req #: [id number] Adm Physician: LIZ ABARCA MD Ordered by: LIZ ABARCA MD Report #: [id number] Loc ation: ICU Room/Bed: ICU [facility] Procedure: [id number] D X/CHEST SINGLE (PORTABLE) Exam Date: 08/18/17 Exam T kris: 0650 REPORT STATUS: Signed PROCEDURE: A single AP view of the ch est. COMPARISON: 08/16/2017. INDICATIONS: ASPIRATION, COPD FINDINGS: Right upper extremity PICC is noted. The tip projects over the low superior vena cava. Unchanged position of right subclavian approach i mplantable cardiac device body and lead. Interval extubation and removal o f enteric tube. The lungs remain well-inflated and without focal consolida tion, large effusion, or pneumothorax. Scattered prominent interstitial noris ngs likely reflect age-related fibrotic changes. Right upper lobe volume l oss with ipsilateral tracheal deviation is again noted, and is unchanged rela tive to 03/29/2017 when accounting for differences in technique. Tortuosity an d atherosclerotic calcification of the thoracic aorta. IMPRESSION: Interval extubation and removal of enteric tube. Tip of right upper extremity PICC projects over the low superior vena cava. Stable chronic appearing changes of the lungs without new consolidation or pleural effusion. Dictated by: Jennifer Bonner M.D. on 08/18/2017 at 7:16 Electronically approved by: Jennifer Bonner M.D. on 08/18/2017 at 7:16 Dictated By: JENNIFER BONNER MD 5 T ranscribed By: ROXANA on 08/18/17715 COPY TO: LIZ ABARCA MD CHEST XRAY LINE PLACEMENT [place] [address] Patient Name: PAXTON SWAIN MR #: [id number] : 1935 Age/Sex: 82/F Req #: [id number] Adm Physician: LIZ ABARCA MD Ordered by: MARAH CARDONA MD Report #: [id number] Location: ICU Room/Bed: [place] [address] Procedure: [id number] DX/CHEST XRAY LINE PLACEMENT Exam Date: 08/16/17 Jelly stovall Time: 1420 REPORT STATUS: Signed EXAMINATION: Chest, CHEST XRAY LINE PLACEMENT INDICATION: Chest pain COMPARISON: Portable chest 08/16 FINDINGS: LINES: Right chest cardiac device with lead projecting over the expected region of the right ventricle. Right periph erally inserted central venous catheter with tip projecting over the expected region of the right subclavian vein. Endotracheal catheter is present with the tip projecting over the expected region of the trachea, position 2 cm from the becca. Enteric feeding catheter with tip extending below the inferior margin of the examination, likely within the gastric body. Heart: Normal cardiac silhouette. Vascular: The pulmonary vasculature is within normal limits. Atherosclerotic calcifications of the aortic arch. Mediastinum: No mediastinal, hilar, or axillary mass or lymphadenopathy. Lungs: No par enchymal mass. No focal consolidation. Bibasilar atelectasis. Pleura: No pleural effusion. No pneumothorax. Bones: No acute osseous abnormality. D egenerative changes of the thoracic spine. Soft tissues: Normal. Im pression: No acute radiographic abnormality. Signed by: Dr. Danae Villalta M.D. on 08/16/2017 2:53 PM Dictated By: DANAE VILLALTA MD Electronically Si gned By: DANAE VILLALTA MD on 08/16/17 1453 Transcribed By: BRIANA on 08/16/17 14 53 COPY TO: MARAH CARDONA MD CHEST SINGLE (PORTABLE) [place] [address] Patient Name: PAXTON SWAIN MR #: [id number] : 1935 Age/Sex: 82/F Req #: [id number] Adm Physician: LIZ ABARCA MD Ordered by: JENNIFER LOGAN MD Report #: [id number] Locati on: ICU Room/Bed: ICU 190-1 Procedure: [id number] DX/C HEST SINGLE (PORTABLE) Exam Date: 08/16/17 Exam Time : 0500 REPORT STATUS: Signed EXAMINATION: Chest, CHEST SINGLE (PORTABL E) INDICATION: Chest pain COMPARISON: Portable chest 08/15/2017 FINDINGS: LINES: No change in proper position of the lines and support catheters. Heart: Normal cardiac silhouette. Vascular: The p ulmonary vasculature is within normal limits. Atherosclerotic calcifications of the aortic arch. Mediastinum: No mediastinal, hilar, or axillary mass or lymphadenopathy. Lungs: No parenchymal mass. No focal consolidation. Biba silar atelectasis. Pleura: Small left pleural effusion. No pneumothorax. Bones: No acute osseous abnormality. Degenerative changes of the thoracic spine. Soft tissues: Normal. Impression: Small left pleural effu carlos. Signed by: Dr. Danae Villalta M.D. on 08/16/2017 7:34 AM Dictated By: DANAE VILLALTA MD 3 Transcribed By: BRIANA on 08/16/17733 COPY TO: JENNIFER LOGAN MD CHEST SINGLE (PORTABLE) [place] [address] Patient Name: PAXTON SWAIN MR #: [id number] : 1935 Age/Sex: 82/F Req #: [id number] Adm Physician: LIZ ABARCA MD Ordered by: JENNIFER LOGAN MD Report #: [id number] Location: ICU Room/Bed: [place] [address] Procedure: [id number] DX/C HEST SINGLE (PORTABLE) Exam Date: 08/15/17 Exam Time : 0455 REPORT STATUS: Signed EXAMINATION: CHEST SINGLE (PORTABLE) INDICATION: Endotracheal tube repositioning. COMPARISON: FINDINGS: TUBES and LINES: Endotracheal tube is now 2.3 cm above the becca in good position. NG tube is stable. Unipolar pacer with dis kim tip overlying the right ventricle. LUNGS: Lungs are not well inflate d. There are bibasilar atelectasis. There is mild prominence of the central pulmonary vasculature, consistent with pulmonary venous congestion. PLEU RA: No pleural effusion or pneumothorax. HEART AND MEDIASTINUM: Cardiac s ize is mildly enlarged. BONES AND SOFT TISSUES: No acute osseous lesio n. Soft tissues are unremarkable. UPPER ABDOMEN: No free air under the d iaphragm. IMPRESSION: Interval improvement in airspace disease previ ously noted right upper lobe. Signed by: Dr. Chapin Dhillon M.D. on 018 7:04 AM Dictated By: CHAPIN CORREA MD 3 Transcribed By: BRIANA on 08/15/17703 COPY TO: JENNIFER LOGAN MD CHEST SINGLE (PORTABLE) [place] [address] Patient Name: PAXTON SWAIN MR #: [id number] : 1935 Age/Sex: 82/F Req #: [id number] Adm Physician: LIZ ABARCA MD Ordered by: JENNIFER LOGAN MD Report #: [id number] Locati on: ICU Room/Bed: ICU [facility] Procedure: [id number] DX/C HEST SINGLE (PORTABLE) Exam Date: 08/14/17 Exam Time : 1419 REPORT STATUS: Signed PROCEDURE: CHEST SINGLE (PORTABLE) 1413 hr s. COMPARISON: Chest x-ray 0606 hrs. INDICATIONS: CHECK ET TUBE POSITION FINDINGS: Lines/tubes: Endotracheal tube terminates in the right main bronc hus. Enteric tube extends past the diaphragm. Right PICC line remains in the SVC. LUNGS: Rounded airspace has developed in the medial right chest near the hilum. The left lung is clear. PLEURA: No effusions or pneu mothorax. HEART T MEDIASTINUM: Stable mild cardiomegaly. BONES T SOFT TISSUES: No acute findings. CONCLUSION: 1. Endotrach eal tube terminates in the proximal right bronchus. Recommend retraction by a pproximately 3-4 cm. 2. New airspace opacity in the right lung suggestive of atelectasis. Dictated by: Jennifer West M.D. on 08/14/2017 at 14:49 Electronically approved by: Jennifer West M.D. on 08/14/2017 at 14:49 Dictated By: JENNIFER WEST MD 1449 Transcribed By: ROXANA on 08/14/17 1449 COPY TO: JENNIFER LOGAN MD CHEST SINGLE (PORTABLE) [place] [address] Patient Name: PAXTON SAWIN MR #: [id number] : 1935 Age/Sex: 82/F Req #: [id number] Adm Physician: LIZ ABARCA MD Ordered by: LIZ ABARCA MD Report #: [id number] Location: ICU Room/Bed: ICU [facility] Procedure: [id number] D X/CHEST SINGLE (PORTABLE) Exam Date: 08/14/17 Exam T kris: 0540 REPORT STATUS: Signed EXAMINATION: CHEST SINGLE (PORTABLE) INDICATION: Intubated. COMPARISON: 08/13/2017 FINDINGS: TUBES and LINES: Right IJ central line catheter and nasogastric tub e are stable in good position. Endotracheal tube is 0.8 cm above the becca, repositioning is recommended. LUNGS: Lungs are not well inflated. There are bibasilar atelectasis. There is perihilar interstitial opacities, consis tent with interstitial edema. PLEURA: No pleural effusion or pneumothorax. HEART AND MEDIASTINUM: Cardiac size is mildly enlarged. There are ather osclerotic calcifications within the aorta. BONES AND SOFT TISSUES: No acu te osseous lesion. Soft tissues are unremarkable. UPPER ABDOMEN: No free air under the diaphragm. IMPRESSION: Persistent mild interstitial e mitch. Repositioning of endotracheal tube is recommended Signed by: Dr. Chapin Dhillon M.D. on 08/14/2017 7:08 AM Dictated By: CHAPIN CORREA MD 7 Transcr ibed By: BRIANA on 08/14/17707 COPY TO: LIZ ABARCA MD CHEST SINGLE (PORTABLE) [place] [address] Patient Name: PAXTON SWAIN MR #: [id number] : 1935 Age/Sex: 82/F Req #: [id number] Adm Physician: LIZ ABARCA MD Ordered by: LIZ ABARCA MD Report #: [id number] Location: ICU Room/Bed: ICU [facility] Procedure: [id number] D X/CHEST SINGLE (PORTABLE) Exam Date: 08/13/17 Exam T kris: 0335 REPORT STATUS: Signed EXAMINATION: CHEST SINGLE (PORTABLE) INDICATION: Intubated patient COMPARISON: 08/13/2017 at 00 27 hours FINDINGS: TUBES and LINES: Endotracheal tube is visualized in good position overlying the distal trachea 2.5 cm above the becca. R ight upper extremity PICC line with tip at the level of the distal SVC. LUCINDA GS: There are bibasilar, scattered opacities again suspicious for aspira tion versus atelectasis. There is perihilar interstitial opacities, consiste nt with interstitial edema. PLEURA: No pleural effusion or pneumothorax. HEART AND MEDIASTINUM: The cardiomediastinal silhouette is unremarkable. Th ere are atherosclerotic calcifications within the aorta. BONES AND SOFT T ISSUES: No acute osseous lesion. Soft tissues are unremarkable. UPPER A BDOMEN: No free air under the diaphragm. IMPRESSION: 1. Worsening c entral vascular congestion with now interlobular septi thickening compatible w ith fluid overload 2. Endotracheal tube and right upper extremity PICC line i n good position Signed by: Dr. Chapin Dhillon M.D. on 08/13/2017 5:22 AM Dictated By: CHAPIN CORREA MD 1 Transcribed By: BRIANA on 08/13/17521 COPY TO: LIZ ABARCA MD CHEST XRAY LINE PLACEMENT [place] [address] Patient Name: PAXTON SWAIN MR #: [id number] : 1935 Age/Sex: 82/F Req #: [id number] Adm Physician: LIZ ABARCA MD Ordered by: LIZ ABARCA MD Report #: [id number] Location: ICU Room/Bed: ICU [facility] Procedure: [id number] D X/CHEST XRAY LINE PLACEMENT Exam Date: 08/13/17 Exam Time: 0020 REPORT STATUS: Signed EXAMINATION: CHEST XRAY LINE PLACEME NT INDICATION: PICC line placement. COMPARISON: 017 FINDINGS: TUBES and LINES: Endotracheal tube is visualized in g ood position overlying the distal trachea 2.5 cm above the becca. Interv al placement of right upper extremity PICC line with tip at the level of the d istal SVC. LUNGS: Lungs are not well inflated. There are bibasilar, scatt ered opacities again suspicious for aspiration versus atelectasis. There is mild prominence of the central pulmonary vasculature, consistent with pulmonar y venous congestion. PLEURA: No pleural effusion or pneumothorax. H EART AND MEDIASTINUM: The cardiomediastinal silhouette is unremarkable. There are atherosclerotic calcifications within the aorta. BONES AND SOFT TISSUE S: No acute osseous lesion. Soft tissues are unremarkable. UPPER ABDOME N: No free air under the diaphragm. IMPRESSION: 1. Stable opacities in the lung bases may represent aspiration or atelectasis 2. Endotracheal tu be and right upper extremity PICC line in good position Signed by: Dr. Adryan Dhillon M.D. on 08/13/2017 12:35 AM Dictated By: CHAPIN CORREA MD Transcri bed By: BRIANA on 08/13/1734 COPY TO: LIZ ABARCA MD [facility] [place] [address] Patient Name: PAXTON SWAIN MR #: [id number] : 1935 Age/Sex: 82/F Req #: [id number] Adm Physician: LIZ ABARCA MD Ordered by: JENNIFER LOGAN MD Report #: [id number] Location: ICU Room/Bed: ICU 190-1 Procedure: [id number] DX/A BDOMEN-1VIEW (KUB) Exam Date: 08/12/17 Exam Time: REPORT STATUS: Signed PROCEDURE: X-RAY ABDOMEN - KUB COMPARI SON: None. INDICATIONS: OG TUBE PLACEMENT TODAY FINDINGS: N G tube extends below the diaphragm and out of the field of view. There is a n on-obstructed bowel-gas pattern. There are no calcifications projected over t he renal shadows, expected course of the ureters or bladder. There are no acu te osseous abnormalities. The left lung base reveals a small pleural effusion . CONCLUSION: NG tube as described above. Hugo rAaujo D.O. Dictated by: Hugo Araujo D.O. on 08/12/2017 at 16:23 Electronically approved by: Hugo Araujo D.O. on 08/12/2017 at 16:23 Dict ated By: HUGO ARAUJO DO 1623 COPY TO: JENNIFER LOGAN MD CHEST [facility] (PORTABLE) [place] [address] Patient Name: PAXTON SWAIN MR #: [id number] : 1935 Age/Sex: 82/F Req #: [id number] Adm Physician: Ordered by: DAILY FOX MD Report #: [id number] Location: ER Room/Bed: Procedure: [id number] DX/CHEST SINGLE (PORTABLE) E xam Date: 08/12/17 Exam Time: 614 REPORT STATU S: Signed EXAMINATION: CHEST SINGLE (PORTABLE) INDICATION: Respiratory distress COMPARISON: 03/31/2017 FINDINGS: TUBES and LINES: Interval placement of endotracheal tube with distal tip at 4.5 cm above the becca LUNGS: Lungs are well inflated. Bibasilar linear opacit ies may represent aspiration or atelectasis. There is mild prominence of the central pulmonary vasculature, consistent with pulmonary venous congestion. PLEURA: No pleural effusion or pneumothorax. HEART AND MEDIASTINUM: The cardiomediastinal silhouette is unremarkable. There are atherosclerotic tracey cifications within the aorta. BONES AND SOFT TISSUES: No acute osseous les ion. Soft tissues are unremarkable. UPPER ABDOMEN: No free air under the diaphragm. IMPRESSION: 1. Scattered opacities in the lung bases may represent aspiration or atelectasis 2. Endotracheal tube in good position. Signed by: Dr. Chapin Dhillon M.D. on 08/12/2017 6:50 AM Dictated By: CHAPIN CORREA MD 0650 COPY TO: AXEL FOX MD VQ LUNG SCAN VENT PERFUSION [place] [address] Patient Name: PAXTON SWAIN MR #: [id number] : 1935 Age/Sex: 82/F Req #: [id number] Adm Physician: LIZ ABARCA MD Ordered by: DAILY FOX MD Report #: [id number] Location: [facility] Room/Bed: [place] [address] Procedure: [id number] NM/VQ LUNG SCAN VENT PERFUSION Exam Date: Exam T kris: REPORT STATUS: Signed EXAM: PERFUSION LUNG SCAN INDICATION: 82 F with COPD exacerbation during 2-day road trip COMPARISON: Chest radiog raph 08/12/2017 DISCUSSION: Ventilation study was not performed because magi ent on ventilator. Perfusion images of the lungs in multiple projections we re obtained following intravenous administration of 6.0 mCi of Tc-99m MAA. Dis tribution of tracer very throughout the lungs, however, there are no segmenta l perfusion defects of any size. The cardiac silhouette is unremarkable. IMPRESSION: 1. Scan findings represent a LOW probability for acute p ulmonary embolic disease based on the PIOPED II criteria. Ventilation study w ould not alter this probability. 2. Scan findings are compatible with dif fuse obstructive lung disease; parenchymal lung disease may also be present. Signed by: Dr. Constantine Whaley M.D. on 08/12/2017 3:42 PM Dictated By: CONSTANTINE WHALEY MD 41 Tra nscribed By: BRIANA on 08/12/171541 COPY TO: DAILY FOX MD CHEST [facility] (PORTABLE) [place] [address] Patient Name: PAXTON SWAIN MR #: [id number] : 1935 Age/Sex: 81/F Req #: [id number] Adm Physician: LIZ ABARCA MD Ordered by: LIZ ABARCA MD Report #: [id number] Location: MED/SURG3 Room/Bed: 293 Procedure: [id number] DX/CHEST SINGLE (PORTABLE) Exam Date: 03/31/17 Exam Time: 1444 REPORT STATUS: Signed PROCEDURE: CHEST SINGLE (PORTABLE) TECHNIQUE: Portable AP chest INDICATION: Shortness of breath with left-s ided chest pain. COMPARISON: [facility], DX, CHEST 2 VIEWS, 12/2016, 6:26. FINDINGS: Lungs are clear and symmetrically inflated. No pleural effusions. Prominent cardiac silhouette for technique with enlarge d central vasculature and trace central parabronchial cuffing. Intact skeleto n. CONCLUSION: Borderline cardiomegaly with mild central vascular co ngestion. Dictated by: Tevin Naranjo M.D. on 03/31/2017 at 15:21 Electronically approved by: Tevin Naranjo M.D. on 03/31/2017 at 15:21 Dictated By: TEVIN NARANJO MD 1521 Transcribed By: ROXANA on 03/31/17 1521 COPY TO: LIZ ABARCA MD CHEST 2 VIEWS [place] [address] Patient Name: PAXTON SWAIN MR #: [id number] : 1935 Age/Sex: 81/F Req #: [id number] Adm Physician: LIZ ABARCA MD Ordered by: JENNIFER LOGAN MD Report #: [id number] Location: MED/SURG3 Room/Bed: 293-1 Procedure: [id number] DX /CHEST 2 VIEWS Exam Date: 03/29/17 Exam Time: 0620 REPORT STATUS: Signed EXAMINATION: Chest, CHEST 2 VIEWS INDICA TION: Chest pain COMPARISON: Portable chest 03/28/2017 FINDINGS: LINES: None. Heart: Normal cardiac silhouette. Vascular: The pulmonary vasculature is within normal limits. Atherosclerotic calcifications of the aortic arch. Mediastinum: No mediastinal, hilar, or axillary mass or lymphadenopathy. Lungs: No parenchymal mass. No focal consolidation. B ibasilar atelectasis. Pleura: No pleural effusion. No pneumothorax. Bones: No acute osseous abnormality. Degenerative changes of the thoracic spi ne. Soft tissues: Normal. Impression: No acute radiographic abnorm ality. Signed by: Dr. Danae Villalta M.D. on 03/29/2017 8:46 AM Dictate d By: DANAE VILLALTA MD 5 Transcribed By: BRIANA on 03/29/17845 COPY TO: JENNIFER LOGAN MD CHEST SINGLE (PORTABLE) [place] [address] Patient Name: PAXTON SWAIN MR #: [id number] : 1935 Age/Sex: 81/F Req #: [id number] Adm Physician: LIZ ABARCA MD Ordered by: WESLEY MEJIAS MD Report #: [id number] Location: [facility] Room/Bed: [facility] Procedure: [id number] DX/CHEST SINGLE (PORTABLE) Exam Date: Exam T kris: REPORT STATUS: Signed EXAM: CHEST SINGLE (PORTABLE), AP 1 view DATE: 03/28/2017 5:00 AM Time stamp on exam: 0545 hours INDICATION: Pneumonia COMPARISON: AP view of the chest March 27, 2017 FINDINGS: LINES/TUBES: None LUNGS: Scattered bilateral reticulonodular changes PLEURA: No e ffusions or pneumothorax. HEART AND MEDIASTINUM: Normal size and contour. BONES AND SOFT TISSUES: No acute findings. IMPRESSION: No interval c hange. Signed by: Dr. Bessie See M.D. on 03/28/2017 6:12 AM Dictated By: BESSIE SEE MD 1 Transcribed By: BRIANA on 03/28/17611 COPY TO: WESLEY HEREDIA MD CHEST SINGLE (PORTABLE) [place] [address] Patient Name: PAXTON SWAIN MR #: [id number] : 1935 Age/Sex: 81/F Req #: [id number] Adm Physician: Ordered by: WESLEY MEJIAS MD Report #: [id number] Location: ER Room/Bed: Procedure: [id number] DX/CHEST SINGLE (CHARLETTE BLE) Exam Date: 03/27/17 Exam Time: 2024 T STATUS: Signed EXAM: CHEST SINGLE (PORTABLE), AP 1 view DATE: 03/27/2017 7 :36 PM Time stamp on exam: 2024 INDICATION: Shortness of breath CHEKO RISON: AP view of the chest June 20, 2016 FINDINGS: LINES/TUBES: None LUNGS: Scattered bilateral reticulonodular changes. PLEURA: No effusions or pneumothorax. HEART AND MEDIASTINUM: Normal size and contour. BONES AND SOFT TISSUES: No acute findings. IMPRESSION: Nonspecific scattered bilateral reticulonodular changes. This could represent atypical infection in the appropriate clinical setting or chronic interstitial lung disease. Signed by: Dr. Bessie See M.D. on 03/27/2017 9:28 PM Di ctated By: BESSIE SEE MD 27 COPY TO: Jovany MEJIAS MD
--- NOTE | 2019-12-23 09:57 | NUR ---
JOSAFAT HANDED TO ER AFTER GIVEN TO CHARGE FROM RT.
[2019-12-23 10:12] LABS: ALBUMIN 4.4 g/dL (3.5-5.0); ANION GAP 13.8 mmol/L (8-16); CALCIUM 9.6 mg/dL (8.4-10.2); CREATININE, SERUM 1.53 mg/dL (0.57-1.11); POTASSIUM 3.8 mmol/L (3.5-5.1)
[2019-12-23 10:18] LABS: CREATINE KINASE MB 1.6 ng/mL (0-5.0)
--- OUTSIDE RECORDS SUMMARY | 2019-12-23 10:22 | XMS REPORT | Continuity of Care Document ---
Author Author [facility] t Organization Formerly [facility] Address [address] [place] [address] Phone Unavailable Care Team Providers Care Blow Mold Technician Name Role Phone Ori ABARCA MD PCP MARAH CARDONA Attphys Unavailable Ori ABARCA Attphys Unavailable Ori ABARCA Admphys Unavailable Payers Payer Name Policy Type Policy Number Effective Date Expiration Date Ori swenson [facility] [id number] 2015 00:00:00 [facility] Medicare A & B [id number] 1999 00:00:00 [facility] Problems Condition Name Condition Details Condition Category Status Onset Date Resolution Date Last Treatment Date Treating Clinician Comments Source Acute renal failure Acute renal failure Problem Active [facility] Obstructive chronic bronchitis with exacerbation COPD exacerbati on Problem Active [facility] Cervical radiculopathy Cervical radiculopathy Problem Active [facility] Pneumonia Pneumonia Problem Active [facility] Respiratory failure with hypoxia and hypercapnia Respi ratory failure with hypoxia and hypercapnia Problem Active [facility] Allergies, Adverse Reactions, Alerts Allergy Name Allergy Type Status Severity Reaction(s) Onset Date Inacti ve Date Treating Clinician Comments Source Hydromorphone Allergy to Substance Active 2017-08-13 00:00: 00 [facility] Penicillin Allergy to Substance Active 2016-06-19 00:00:00 [facility] Ciprofloxacin Allergy to Substance Active 2016-06-19 00:00: 00 [facility] Levofloxacin Allergy to Substance Active 2016-06-19 00:00:0 0 [facility] Medications Ordered Medication Name Filled Medication Name Start Date Stop Da te Current Medication? Ordering Clinician Indication Dosage Frequency Signature (SIG) Comments Components Source Albuterol Sulfate 0.63 Mg/3 Ml Vial.neb Albuterol Sulfate 0. 63 Mg/3 Ml Vial.neb Yes .63 Qid X 20DAYS as needed [facility] Albuterol Sulfate (Proair Hfa Inhaler*) 8.5 Gm Inh Alb uterol Sulfate (Proair Hfa Inhaler*) 8.5 Gm Inh Yes As Needed as need ed [facility] Amlodipine Besylate 10 Mg Tablet Amlodipine Besylate 10 Mg Tablet Yes 10 Daily [facility] Brimonidine Tartrate (Combigan Eye Drops) 5 Ml Drpette Brimonidine Tartrate (Combigan Eye Drops) 5 Ml Drpette Yes .2 Twic e A Day [facility] Calcium Carb/Vit D3/Minerals (Caltrate-600 With Vit D Tab) 1 Each Tablet Calcium Carb/Vit D3/Minerals (Caltrate-600 With Vit D Tab) 1 Each Tablet Yes 600 Twice A Day [facility] Doxycycline Hyclate 100 Mg Capsule Doxycycline Hyclate 100 Mg Capsule Yes 100 Twice A Day [facility] Esomeprazole Magnesium (Nexium) 40 Mg Capsule.dr Barba prazole Magnesium (Nexium) 40 Mg Capsule. Yes 40 Twice A Day [facility] Fluticasone/Salmeterol (Advair 250-50 Diskus) 1 Each D isk.w.dev Fluticasone/Salmeterol (Advair 250-50 Diskus) 1 Each Disk.w.dev Yes 1 Twice A Day [facility] Latanoprost (Xalatan) 2.5 Ml Drops Latanoprost (Xalatan) 2.5 Ml Drops Yes .005 Daily [facility] Levothyroxine Sodium (Synthroid) 50 Mcg Tab Levothyrox ine Sodium (Synthroid) 50 Mcg Tab Yes 50 Daily [facility] Montelukast Sodium 10 Mg Tablet Montelukast Sodium 10 Mg Tablet Yes 10 Daily [facility] Multivitamin (Multi-Day Vitamins) 1 Each Tablet Multiv itamin (Multi-Day Vitamins) 1 Each Tablet Yes 1 Daily [facility] Clarithromycin 500 Mg Tablet, 500 Mg Oral Clarithromyc in 500 Mg Tablet, 500 Mg Oral 2016-06-27 00:00:00 No 500 Twice A Day [facility] Prednisone 5 Mg Tablet, 20 Mg Oral Prednisone 5 Mg Tablet, 20 Mg Oral 2016-06-27 00:00:00 No 20 Twice A Day as neede d for Cough [facility] Clarithromycin 500 Mg Tablet, 500 Mg Oral Clarithromyc in 500 Mg Tablet, 500 Mg Oral 2016-06-19 00:00:00 No 500 Twice A Day as nee ded for Daily [facility] Levofloxacin (Levaquin) 500 Mg Tablet, 500 Mg Oral Lev ofloxacin (Levaquin) 500 Mg Tablet, 500 Mg Oral 2013-05-02 00:00:00 No 500 D aily X 10DAYS [facility] Prednisone 10 Mg Tab.ds.pk, 10 Mg Oral Prednisone 10 Mg Tab.ds.p k, 10 Mg Oral 2013-05-02 00:00:00 No 10 See Instructions [facility] Procedures Procedure Date / Time Performed Performing Clinician [facility] e X-ray of chest, two views 2017-03-29 00:00:00 JENNIFER LOGAN CH, I [facility] Encounters Start Date/Time End Date/Time Encounter Type Ad[facility] ID Source 2017-08-12 07:55:00 2017-08-23 12:32:00 Discharged Inpatient ER LIZ ABARCA [facility] [id number] [facility] 2017-03-27 22:22:00 2017-04-01 17:40:00 [id number] Results Test Description Test Time Test Comments Results Result Comments Source CT CHEST WO 2019-12-22 09:33:00 [place] [address] Patient Name: PAXTON SWAIN MR #: [id number] : 1935 Age/Sex: 84/F Req #: [id number] [facility] Physician: Ordered by: MARAH CARDONA MD Report #: [id number] Location: CT Room/Bed: Procedure: CT/CT CHEST WO Exam Date: 12/22/19 Exam Time: 813 REPORT STATUS: Signed EXAM: CT Chest WITHOUT intravenous contrast 12/22/2019 8:14 AM INDICATION: [id number] HX OF PNEUMONIA COMPARISON: CT dated [...] CARDONA MD CT CHEST WO 2017-10-08 15:45:00 [place] [address] Patient Name: PAXTON SWAIN MR #: [id number] : 1935 Age/Sex: 82/F Req #: [id number] Adm Physician: Ordered by: MARAH CARDONA MD Report #: [id number] Location: CT Room/Bed: Procedure: [id number] CT/CT CHEST WO Exam Date: 10/08/17 Exam [...] Test Item Bedside Glucose (test code = 91036-1) 81 70-120 Meter ID: [id number] Medical Centerodium Level 2017-08-22 06:24:00* Test Item Value Reference Range Interpretation Comments Sodium Level (test code = 2951-2) 132 136-145 L [facility] CenterPotassium Nrsmc1532-01-07 06:24:00* Test Item Value Reference Range Interpretation Comments Potassium Level (test code = 2823-3) 3.8 3.5-5.1 [facility] CenterChloride Jcykn5455-95-55 06:24:00* Test Item Value Reference Range Interpretation Comments Chloride Level (test code = 2075-0) 102 98-107 [facility] CenterCarbon Dioxide Nczwj3738-10-78 06:24:00* Test Item Value Reference Range Interpretation Comments Carbon Dioxide Level (test code = 2028-9) 24 22-29 [facility] CenterAnion Hik3620-02-05 06:24:00* Test Item Value Reference Range Interpretation Comments Anion Gap (test code = 27706-6) 9.8 8-16 [facility] CenterBlood Urea Unuplzud6999-54-92 06:24:00* Test Item Value Reference Range Interpretation Comments Blood Urea Nitrogen (test code = 3094-0) 61 7-26 H [facility] CenterCreatinine2018-05-04 06:24:00* Test Item Value Reference Range Interpretation Comments Creatinine (test code = 2160-0) 1.43 0.57-1.11 H [facility] CenterBUN/Creatinine Wmnsi1792-66-18 06:24:00* Test Item Value Reference Range Interpretation Comments BUN/Creatinine Ratio (test code = 3097-3) 43 6-25 H [facility] CenterEstimat Glomerular Filtration Rate 2017-08-22 06:24:00* Test Item Value Reference Range Interpretation Comments Estimat Glomerular Filtration Rate (test code = 44903-5) 35 >60 L Ranges were taken from the National Kidney Disease Education Program and the [facility] [employer] literature.Reference ranges:60 or greater: Lglzdh47-00 ( for 3 consecutive months): Chronic kidney disease 15 or less: Kidney failureValley Regional Medical CenterGlucose Tnlpj5383-98-22 06:24:00* Test Item Value Reference Range Interpretation Comments Glucose Level (test code = AFV7164) 112 74-118 [facility] CenterCalcium Guuqu8623-45-43 06:24:00* Test Item Value Reference Range Interpretation Comments Calcium Level (test code = 35457-4) 9.0 8.4-10.2 [facility] CenterTotal Tzukfdenf4436-90-12 06:24:00* Test Item Value Reference Range Interpretation Comments Total Bilirubin (test code = 1975-2) 0.4 0.2-1.2 [facility] CenterAspartate Amino Transf (AST/SGOT) 2017-08-22 06:24:00* Test Item Value Reference Range Interpretation Comments Aspartate Amino Transf (AST/SGOT) (test code = Aspartate Amino Transf (AST/SGOT)) 11 5-34 [facility] CenterAlanine Aminotransferase (ALT/SGPT) 2017-08-22 06:24:00* Test Item Value Reference Range Interpretation Comments Alanine Aminotransferase (ALT/SGPT) (test code = 1742-6) 18 0-55 [facility] CenterTotal Sazdvvx4620-86-73 06:24:00* Test Item Value Reference Range Interpretation Comments Total Protein (test code = 2885-2) 6.8 6.5-8.1 [facility] CenterAlbumin2018-05-04 06:24:00* Test Item Value Reference Range Interpretation Comments Albumin (test code = 1751-7) 2.6 3.5-5.0 L [facility] CenterGlobulin2018-05-04 06:24:00* Test Item Value Reference Range Interpretation Comments Globulin (test code = 73813-6) 4.2 2.3-3.5 H [facility] CenterAlbumin/Globulin Dcylo2751-88-41 06:24:00 * Test Item Value Reference Range Interpretation Comments Albumin/Globulin Ratio (test code = 1759-0) 0.6 0.8-2.0 L [facility] CenterAlkaline Ktunxkuftls0051-18-21 06:24:00* Test Item Value Reference Range Interpretation Comments Alkaline Phosphatase (test code = 6768-6) 70 40-150 [facility] CenterThyroid Stimulating Hormone (TSH) 2017-08-21 07:13:00* Test Item Value Reference Range Interpretation Comments Thyroid Stimulating Hormone (TSH) (test code = 82806-7) 1.825 0.350-4.940 [facility] CenterWhite Blood Ktzsb5796-76-23 06:29:00* Test Item Value Reference Range Interpretation Comments White Blood Count (test code = 6690-2) 9.08 4.8-10.8 [facility] CenterRed Blood Pdatc9920-52-21 06:29:00* Test Item Value Reference Range Interpretation Comments Red Blood Count (test code = 789-8) 3.84 3.6-5.1 [facility] CenterHemoglobin2018-05-03 06:29:00* Test Item Value Reference Range Interpretation Comments Hemoglobin (test code = 05076-1) 12.1 12.0-16.0 [facility] CenterHematocrit2018-05-03 06:29:00* Test Item Value Reference Range Interpretation Comments Hematocrit (test code = 4544-3) 35.0 34.2-44.1 [facility] CenterMean Corpuscular Pddnhw1016-04-33 06:29:00* Test Item Value Reference Range Interpretation Comments Mean Corpuscular Volume (test code = 787-2) 91.1 81-99 [facility] CenterMean Corpuscular Vwsgtvbdpw8594-62-18 06:29:00* Test Item Value Reference Range Interpretation Comments Mean Corpuscular Hemoglobin (test code = 785-6) 31.5 28-32 [facility] CenterMean Corpuscular Hemoglobin Concent 2017-08-21 06:29:00* Test Item Value Reference Range Interpretation Comments Mean Corpuscular Hemoglobin Concent (test code = 786-4) 34.6 31-35 [facility] CenterRed Cell Distribution Bqrrh2036-79-34 06:29:00* Test Item Value Reference Range Interpretation Comments Red Cell Distribution Width (test code = 59106-7) 15.2 11.7 -14.4 H [facility] CenterPlatelet Icaap1608-38-86 06:29:00* Test Item Value Reference Range Interpretation Comments Platelet Count (test code = 777-3) 174 140-360 [facility] CenterNeutrophils (%) (Auto)2017-08-21 06:29:00 * Test Item Value Reference Range Interpretation Comments Neutrophils (%) (Auto) (test code = 01809-4) 79.7 38.7-80.0 [facility] CenterLymphocytes (%) (Auto)2017-08-21 06:29:00 * Test Item Value Reference Range Interpretation Comments Lymphocytes (%) (Auto) (test code = 736-9) 11.5 18.0-39.1 L [facility] CenterMonocytes (%) (Auto)2017-08-21 06:29:00* Test Item Value Reference Range Interpretation Comments Monocytes (%) (Auto) (test code = 5905-5) 8.3 4.4-11.3 [facility] CenterEosinophils (%) (Auto)2017-08-21 06:29:00 * Test Item Value Reference Range Interpretation Comments Eosinophils (%) (Auto) (test code = 713-8) 0.0 0.0-6.0 [facility] CenterBasophils (%) (Auto)2017-08-21 06:29:00* Test Item Value Reference Range Interpretation Comments Basophils (%) (Auto) (test code = 706-2) 0.1 0.0-1.0 [facility] CenterIM GRANULOCYTES %2017-08-21 06:29:00* Test Item Value Reference Range Interpretation Comments IM GRANULOCYTES % (test code = IM GRANULOCYTES %) 0.4 0.0- 1.0 [facility] CenterNeutrophils # (Auto)2017-08-21 06:29:00* Test Item Value Reference Range Interpretation Comments Neutrophils # (Auto) (test code = 751-8) 7.2 2.1-6.9 H [facility] CenterLymphocytes # (Auto)2017-08-21 06:29:00* Test Item Value Reference Range Interpretation Comments Lymphocytes # (Auto) (test code = 58775-8) 1.0 1.0-3.2 [facility] CenterMonocytes # (Auto)2017-08-21 06:29:00* Test Item Value Reference Range Interpretation Comments Monocytes # (Auto) (test code = 742-7) 0.8 0.2-0.8 [facility] CenterEosinophils # (Auto)2017-08-21 06:29:00* Test Item Value Reference Range Interpretation Comments Eosinophils # (Auto) (test code = 711-2) 0.0 0.0-0.4 [facility] CenterBasophils # (Auto)2017-08-21 06:29:00* Test Item Value Reference Range Interpretation Comments Basophils # (Auto) (test code = 704-7) 0.0 0.0-0.1 [facility] CenterAbsolute Immature Granulocyte (auto 2017-08-21 06:29:00* Test Item Value Reference Range Interpretation Comments Absolute Immature Granulocyte (auto (oskar t code = Absolute Immature Granulocyte (auto) 0.04 0-0.1 [facility] CenterMagnesium Cssfj2833-49-06 06:26:00* Test Item Value Reference Range Interpretation Comments Magnesium Level (test code = 22813-8) 2.1 1.3-2.1 [facility] CenterArterial Blood fE2069-13-10 08:47:00* Test Item Value Reference Range Interpretation Comments Arterial Blood pH (test code = 2744-1) 7.37 7.31-7.41 [facility] CenterArterial Blood Partial Pressure CO2 2017-08-17 08:47:00* Test Item Value Reference Range Interpretation Comments Arterial Blood Partial Pressure CO2 (test code = 2018-) 37 41-51 L [facility] CenterArterial Blood Partial Pressure O2 2017-08-17 08:47:00* Test Item Value Reference Range Interpretation Comments Arterial Blood Partial Pressure O2 (test code = 2018-11) 116 80-105 H [facility] CenterArterial Blood UQX04982-19-18 08:47:00* Test Item Value Reference Range Interpretation Comments Arterial Blood HCO3 (test code = 1960-4) 21 23-28 L [facility] CenterArterial Blood Base Cajkoe6954-75-87 08:47:00* Test Item Value Reference Range Interpretation Comments Arterial Blood Base Excess (test code = 1925-7) -4.0 -2-3 L [facility] CenterArterial Blood Oxygen Saturation 2017-08-17 08:47:00* Test Item Value Reference Range Interpretation Comments Arterial Blood Oxygen Saturation (test code = 2708-6) 98.0 95-98 [facility] CenterFiO22018-04-29 08:47:00* Test Item Value Reference Range Interpretation Comments FiO2 (test code = FiO2) 40 CPAP PS 7 PEEP 5 FIO2 40%[facility] Centerputum Culture 2017-08-17 06:40:00* Test Item Value Reference Range Interpretation Comments Sputum Culture (test code = 624-7) Organism: PSEUDOMONAS AERUGINOSA [facility] CenterBlood Geyygfx2665-23-40 06:01:00* Test Item Value Reference Range Interpretation Comments Blood Culture (test code = 80641875) NO GROWTH AFTER 5 DAYS, FINAL REPORT [facility] CenterProthrombin Arwc5674-82-17 06:34:00* Test Item Value Reference Range Interpretation Comments Prothrombin Time (test code = 5902-2) 13.6 11.9-14.5 [facility] CenterProthromb Time International Ratio 2017-08-15 06:34:00* Test Item Value Reference Range Interpretation Comments Prothromb Time International Ratio (test code = 6301-6) 1.13 Oral Anticoagulant Therapy INR Values:1. Low Intensity Therapy 1.5 - 2.02 . Moderate Intensity Therapy 2.0 - 3.03. High Intensity Therapy(1) 2.5 - 3. 54. High Intensity Therapy(2) 3.0 - 4.05. Panic Value INR > 5.0 [facility] CenterActivated Partial Thromboplast Time 2017-08-15 06:34:00* Test Item Value Reference Range Interpretation Comments Activated Partial Thromboplast Time (test code = 74965-9) 28.0 23.8-35.5 [facility] CenterTriglycerides Zxpgq2674-35-12 07:25:00* Test Item Value Reference Range Interpretation Comments Triglycerides Level (test code = 2571-8) 53 0-149 [facility] CenterCholesterol Akabd8300-40-84 07:25:00* Test Item Value Reference Range Interpretation Comments Cholesterol Level (test code = 2093-3) 107 0-199 Less than 200 mg/dL Low Izip177 - 239 mg/dL Borderline Eydx170 m g/dl and greater High Risk [facility] CenterLDL Cqzlremfflp3753-68-74 07:25:00* Test Item Value Reference Range Interpretation Comments LDL Cholesterol (test code = 2089-1) 43 60-130 L [facility] CenterHDL Yrakpvdxoac0315-08-57 07:25:00* Test Item Value Reference Range Interpretation Comments HDL Cholesterol (test code = 2085-9) 53 40-60 [facility] CenterCholesterol/HDL Elijq1921-02-92 07:25:00 * Test Item Value Reference Range Interpretation Comments Cholesterol/HDL Ratio (test code = 9830-1) 2.0 3.0-3.6 L [facility] CenterCreatine Kinase HL2774-52-93 18:56:00* Test Item Value Reference Range Interpretation Comments Creatine Kinase MB (test code = 88685-5) 7.00 0-5.0 H [facility] CenterTroponin Q5494-17-27 18:56:00* Test Item Value Reference Range Interpretation Comments Troponin I (test code = QMJ8953) 2.059 0-0.300 H Elevated result called to ALBERTO LUGO at 1855 on 08/12/17 by MARIANNE AMAYA.[facility] CenterCreatine Ldmcbm1772-32-12 18:50:00* Test Item Value Reference Range Interpretation Comments Creatine Kinase (test code = 2157-6) 70 29-168 [facility] CenterFree Thyroxine Sdjpg3470-90-88 09:53:00* Test Item Value Reference Range Interpretation Comments Free Thyroxine Index (test code = 94787-6) 2.1954 1.4-3.8 [facility] CenterThyroxine (T4)2017-08-12 09:53:00* Test Item Value Reference Range Interpretation Comments Thyroxine (T4) (test code = 3026-2) 7.17 4.5-10.9 Our current method for Total T4 is not recommended for use as the only marker fo r evaluating patients for thyroid disorders.[facility] CenterTriiodothyronine (T3) Sfsuqj9162-94-05 09:53:00* Test Item Value Reference Range Interpretation Comments Triiodothyronine (T3) Uptake (test code = 3050-2) 30.62 22.5 -37.0 [facility] CenterD-Dimer Quantitative (PE/DVT)2017-08-12 07:23:00* Test Item Value Reference Range Interpretation Comments D-Dimer Quantitative (PE/DVT) (test code = 98695-2) 884 0- 400 H As with all in vitro diagnostic tests, the test results should be interpreted by the physician in conjunction with clinical findings and other test results.Test results are reported in NEW D-dimer units(ug/mLFEU).[facility] CenterUrine ZMM7267-78-34 07:23:00* Test Item Value Reference Range Interpretation Comments Urine WBC (test code = 5821-4) 0-5 0-5 [facility] CenterUrine PHJ3346-63-09 07:23:00* Test Item Value Reference Range Interpretation Comments Urine RBC (test code = 09548-6) 0-5 0-5 [facility] CenterUrine Pfbydnzb2397-52-62 07:23:00* Test Item Value Reference Range Interpretation Comments Urine Bacteria (test code = 62536-6) NONE NONE [facility] CenterUrine Epithelial Rphnd8781-31-37 07:23:00 * Test Item Value Reference Range Interpretation Comments Urine Epithelial Cells (test code = 87207-2) NONE NONE [facility] CenterUrine Wwpuk8839-90-95 06:53:00* Test Item Value Reference Range Interpretation Comments Urine Color (test code = 5778-6) STRAW YELLOW [facility] CenterUrine Mfyhonh0081-42-61 06:53:00* Test Item Value Reference Range Interpretation Comments Urine Clarity (test code = 88548-4) CLEAR CLEAR [facility] Specific Asghxne7426-40-43 06:53:00 * Test Item Value Reference Range Interpretation Comments Urine Specific [place] (test code = 5811-5) 1.020 1.010-1.02 5 [facility] CenterUrine fN3362-53-35 06:53:00* Test Item Value Reference Range Interpretation Comments Urine pH (test code = 01482-3) 7 5-7 [facility] CenterU[facility] Leukocyte Erpcpajf3959-46-88 06:53:00* Test Item Value Reference Range Interpretation Comments Urine Leukocyte Esterase (test code = 5799-2) TRACE NEGATIVE H [facility] CenterUrine Hfczvyg2482-30-77 06:53:00* Test Item Value Reference Range Interpretation Comments Urine Nitrite (test code = 39425-7) NEGATIVE NEGATIVE [facility] CenterUrine Lvlvimu2529-82-69 06:53:00* Test Item Value Reference Range Interpretation Comments Urine Protein (test code = 5804-0) 2+ NEGATIVE H [facility] CenterUrine Glucose (UA)2017-08-12 06:53:00* Test Item Value Reference Range Interpretation Comments Urine Glucose (UA) (test code = 2349-9) NEGATIVE NEGATIVE [facility] CenterUrine Bidxoln6115-55-78 06:53:00* Test Item Value Reference Range Interpretation Comments Urine Ketones (test code = 33081-6) NEGATIVE NEGATIVE [facility] CenterUrine Zeahkxldrltk5911-24-93 06:53:00* Test Item Value Reference Range Interpretation Comments Urine Urobilinogen (test code = 81890-7) 0.2 0.2-1 [facility] CenterUrine Xcwejrbon5869-97-13 06:53:00* Test Item Value Reference Range Interpretation Comments Urine Bilirubin (test code = 1978-6) NEGATIVE NEGATIVE [facility] CenterUrine Yxdhw5138-04-27 06:53:00* Test Item Value Reference Range Interpretation Comments Urine Blood (test code = 81032-2) 1+ NEGATIVE H [facility] CenterB-Type Natriuretic Npvxnsy0707-64-98 06:35:00* Test Item Value Reference Range Interpretation Comments B-Type Natriuretic Peptide (test code = 74987-2) 103.4 0-100 H [facility] CenterLactic Acid Fofoi9945-51-86 06:12:00* Test Item Value Reference Range Interpretation Comments Lactic Acid Level (test code = Lactic Acid Level) 17.7 4.5- 19.8 [facility] CenterCHE[facility]INGLE [facility]) [facility] [address] [place] [address] Patient Name: PAXTON SWAIN MR #: [id number] : 1935 Age/Sex: 82/F Req #: [id number] Adm Physician: LIZ ABARCA MD Ordered by: LIZ ABARCA MD Report #: [id number] Loc ation: ICU Room/Bed: ICU [facility] Procedure: [id number] D X/CHEST SINGLE (PORTABLE) Exam Date: 08/18/17 [...] LIZ ABARCA MD CHEST XRAY LINE PLACEMENT [place] [address] Patient Name: PAXTON SWAIN MR #: [id number] : 1935 Age/Sex: 82/F Req #: [id number] Adm Physician: LIZ ABARCA MD Ordered by: MARAH CARDONA MD Report #: [id number] Location: ICU Room/Bed: [place] [address] Procedure: [id number] DX/CHEST XRAY LINE PLACEMENT Exam Date: 08/16/17 [...] TO: MARAH CARDONA MD CHEST SINGLE (PORTABLE) [place] [address] Patient Name: PAXTON SWAIN MR #: [id number] : 1935 Age/Sex: 82/F Req #: [id number] Adm Physician: LIZ ABARCA MD Ordered by: JENNIFER LOGAN MD Report #: [id number] Locati on: ICU Room/Bed: ICU 190-1 Procedure: [id number] DX/C HEST SINGLE (PORTABLE) Exam Date: 08/16/17 [...] TO: JENNIFER LOGAN MD CHEST SINGLE (PORTABLE) [place] [address] Patient Name: PAXTON SWAIN MR #: [id number] : 1935 Age/Sex: 82/F Req #: [id number] Adm Physician: LIZ ABARCA MD Ordered by: JENNIFER LOGAN MD Report #: [id number] Location: ICU Room/Bed: [place] [address] Procedure: [id number] DX/C HEST SINGLE (PORTABLE) Exam Date: 08/15/17 [...] TO: JENNIFER LOGAN MD CHEST SINGLE (PORTABLE) [place] [address] Patient Name: PAXTON SWAIN MR #: [id number] : 1935 Age/Sex: 82/F Req #: [id number] Adm Physician: LIZ ABARCA MD Ordered by: JENNIFER LOGAN MD Report #: [id number] Locati on: ICU Room/Bed: ICU [facility] Procedure: [id number] DX/C HEST SINGLE (PORTABLE) Exam Date: 08/14/17 [...] TO: JENNIFER LOGAN MD CHEST SINGLE (PORTABLE) [place] [address] Patient Name: PAXTON SWAIN MR #: [id number] : 1935 Age/Sex: 82/F Req #: [id number] Adm Physician: LIZ ABARCA MD Ordered by: LIZ ABARCA MD Report #: [id number] Location: ICU Room/Bed: ICU [facility] Procedure: [id number] D X/CHEST SINGLE (PORTABLE) Exam Date: 08/14/17 [...] TO: LIZ ABARCA MD CHEST SINGLE (PORTABLE) [place] [address] Patient Name: PAXTON SWAIN MR #: [id number] : 1935 Age/Sex: 82/F Req #: [id number] Adm Physician: LIZ ABARCA MD Ordered by: LIZ ABARCA MD Report #: [id number] Location: ICU Room/Bed: ICU [facility] Procedure: [id number] D X/CHEST SINGLE (PORTABLE) Exam Date: 08/13/17 [...] LIZ ABARCA MD CHEST XRAY LINE PLACEMENT [place] [address] Patient Name: PAXTON SWAIN MR #: [id number] : 1935 Age/Sex: 82/F Req #: [id number] Adm Physician: LIZ ABARCA MD Ordered by: LIZ ABARCA MD Report #: [id number] Location: ICU Room/Bed: ICU [facility] Procedure: [id number] D X/CHEST XRAY LINE PLACEMENT Exam Date: [...] on 08/13/1734 COPY TO: LIZ ABARCA MD ABDOMEN-1[facility] [place] [address] Patient Name: PAXTON SWAIN MR #: [id number] : 1935 Age/Sex: 82/F Req #: [id number] Adm Physician: LIZ ABARCA MD Ordered by: JENNIFER LOGAN MD Report #: [id number] Location: ICU Room/Bed: ICU 190-1 Procedure: [id number] DX/A BDOMEN-1VIEW (KUB) Exam Date: 08/12/17 Exam [...] CONCLUSION: NG tube as described above. Hugo Araujo D.O. Dictated by: Hugo Araujo D.O. on 08/12/2017 at 16:23 Electronically approved by: Hugo Araujo D.O. on 08/12/2017 at 16:23 Dict ated By: HUGO ARAUJO DO 1623 COPY TO: JENNIFER LOGAN MD CHEST [facility] (PORTABLE) [place] [address] Patient Name: PAXTON SWAIN MR #: [id number] : 1935 Age/Sex: 82/F Req #: [id number] Adm Physician: Ordered by: DAILY FOX MD Report #: [id number] Location: ER Room/Bed: Procedure: [id number] DX/CHEST SINGLE (PORTABLE) E xam Date: 08/12/17 [...] FOX MD VQ LUNG SCAN VENT PERFUSION [place] [address] Patient Name: PAXTON SWAIN MR #: [id number] : 1935 Age/Sex: 82/F Req #: [id number] Adm Physician: LIZ ABARCA MD Ordered by: DAILY FOX MD Report #: [id number] Location: [facility] Room/Bed: [place] [address] Procedure: [id number] NM/VQ LUNG SCAN VENT PERFUSION Exam Date: [...] 08/12/171541 COPY TO: DAILY FOX MD CHEST [facility] (PORTABLE) [place] [address] Patient Name: PAXTON SWAIN MR #: [id number] : 1935 Age/Sex: 81/F Req #: [id number] Adm Physician: LIZ ABARCA MD Ordered by: LIZ ABARCA MD Report #: [id number] Location: MED/SURG3 Room/Bed: 293 Procedure: [id number] DX/CHEST SINGLE (PORTABLE) Exam Date: 03/31/17 Exam Time: 1444 REPORT STATUS: Signed PROCEDURE: CHEST SINGLE (PORTABLE) TECHNIQUE: Portable AP chest INDICATION: Shortness of breath with left-s ided chest pain. COMPARISON: [employer] [employer] [facility], DX, CHEST 2 VIEWS, 12/2016, 6:26. FINDINGS: [...] TO: LIZ ABARCA MD CHEST 2 VIEWS [place] [address] Patient Name: PAXTON SWAIN MR #: [id number] : 1935 Age/Sex: 81/F Req #: [id number] Adm Physician: LIZ ABARCA MD Ordered by: JENNIFER LOGAN MD Report #: [id number] Location: MED/SURG3 Room/Bed: 293-1 Procedure: [id number] DX /CHEST 2 VIEWS Exam Date: 03/29/17 [...] TO: JENNIFER LOGAN MD CHEST SINGLE (PORTABLE) [place] [address] Patient Name: PAXTON SWAIN MR #: [id number] : 1935 Age/Sex: 81/F Req #: [id number] Adm Physician: LIZ ABARCA MD Ordered by: WESLEY MEJIAS MD Report #: [id number] Location: [facility] Room/Bed: [facility] Procedure: [id number] DX/CHEST SINGLE (PORTABLE) Exam [...] TO: WESLEY HEREDIA MD CHEST SINGLE (PORTABLE) [place] [address] Patient Name: PAXTON SWAIN MR #: [id number] : 1935 Age/Sex: 81/F Req #: [id number] Adm Physician: Ordered by: WESLEY MEJIAS MD Report #: [id number] Location: ER Room/Bed: Procedure: [id number] DX/CHEST SINGLE (CHARLETTE BLE) Exam Date: 03/27/17 [...]
[2019-12-23 10:26] LABS: ABG PH 7.38 (7.35-7.45)
[2019-12-23 10:27] LABS: ABG HCO3 19 mmol/L (22-26); ABG PCO2 32 mmHg (35-45); ABG PO2 70 mmHg (80-105); ABG TCO2 20
--- NOTE | 2019-12-23 10:49 | Diagnostic Imaging Report ---
Chest, 1 view, 12/23/2019. History: COPD. Shortness of breath. Comparison: CT chest from yesterday. Chest x-ray 08/18/2017. Findings: The cardiomediastinal silhouette and pulmonary vasculature are within normal limits for a portable exam. There is no focal consolidation or pleural effusion. There are no acute osseous or soft tissue abnormalities. Impression: No acute cardiopulmonary abnormality. Signed by: Salinas Fisher on 12/23/2019 10:46 AM
[2019-12-23] MEDS: ALBUTEROL/IPRATROPIUM 3 ML NEB NEB PRN ×2 (10:58→15:30)
--- NOTE | 2019-12-23 12:14 | NUR ---
tried report to pepe, left on hold > 5 mins tried report to floor charge mildred, girl states she is talking on phone to a doctor, stated will hold to give report, girl on phone states to call unit, explained nurse getting back to back pt's and can't take report, so to call charge.
[2019-12-23 12:30] VITALS: BP 180/98
--- NOTE | 2019-12-23 12:30 | NUR ---
Pt received from ER at this time. Pt is aox4 and able to verbalize needs. Pt is on oxygen 2L/NC some wheezing noted with auscultation. 0 s/s of acute distress noted. Pt denies any pain at this time. IV to right AC in patent.
--- NOTE | 2019-12-23 12:31 | NUR ---
report to sandee melvin
[2019-12-23] MEDS ORDERED: LOSARTAN POTASS25 MG PO (13:07)
--- NOTE | 2019-12-23 13:28 | Consultation ---
DATE OF CONSULTATION: Pulmonary Consultation REASON FOR CONSULT: Shortness of breath. HISTORY OF PRESENT ILLNESS: Ms. Mueller is an 84-year-old female, well known to me from my office. She presented with worsening shortness of breath and cough, going on for last two weeks off and on. She has received two courses of prednisone. She follows up with me in the office. She has COPD and also has history of diastolic heart failure. She sees Dr. Lange. Her last EF on the cath here in 2018 was 35%, which likely has improved. She underwent a temporary pacemaker placement as well. She denies any chest pain, nausea, vomiting, or diarrhea. She also denies any fever, and she has been tested in the past for COVID, which was negative. REVIEW OF SYSTEMS: GENERAL: Denies any fever or chills. HEAD: Denies any head trauma. ENT: Denies any earache. CVS: Denies any chest pain. RESPIRATORY: Shortness of breath. GI: Denies any nausea or vomiting. The rest of the review of systems are negative except as in HPI. PAST MEDICAL HISTORY: Hypertension, hyperlipidemia, COPD, chronic kidney disease, history of breast cancer, radical mastectomy of the left breast, and left knee replacement. FAMILY AND SOCIAL HISTORY: Remote history of smoking. Does not smoke any anymore. PHYSICAL EXAMINATION: VITAL SIGNS: Temperature 98.9, pulse of 108, blood pressure 146/65, respiratory rate of 18, and O2 saturation 98%. HEENT: Head; atraumatic, normocephalic. NECK: Supple. CHEST: Crackles and wheezing bilaterally. HEART: S1-S2 audible. ABDOMEN: Soft, nontender. EXTREMITIES: Trace pedal edema. NEUROLOGIC: Awake and alert. LABORATORY DATA: CT of the chest which was ordered by me, was done yesterday, which is not showing any focal infiltrate or effusion. This is showing evidence of scarring and COPD emphysema. ASSESSMENT: Ms. Mueller is an 84-year-old female who presented to the emergency room with shortness of breath likely and chronic obstructive pulmonary disease exacerbation. CURRENT PROBLEMS: 1. Chronic obstructive pulmonary disease exacerbation. 2. History of heart failure. 3. Chronic kidney disease. PLAN: I will start the patient on IV steroids and IV antibiotics. Oxygen as needed to keep the O2 saturation more than or equal to 92%. Thank you for this consult. MD MAXIM Singletary/LAURA /[id number]
[2019-12-23] MEDS ORDERED: LEVALBUTEROL HCL SOLN NEBU 0.63 MG/3 ML NEB INH PRN (13:30)
[2019-12-23] MEDS ORDERED: VITAMIN B-121000 MCG PO (13:49)
[2019-12-23] MEDS ORDERED: NYSTATIN100000 UNI PO (13:49)
[2019-12-23] MEDS ORDERED: BIOTIN300 MCG PO (13:49)
[2019-12-23] MEDS ORDERED: ALBUTEROL SULFATE HFA 8GM INHALATION AEROSOL INH PRN (14:00)
[2019-12-23] MEDS ORDERED: NYSTATIN SUSPENSION 5 ML UDC PO PRN (14:00)
[2019-12-23] MEDS ORDERED: CEFEPIME HCL 1 GM VIAL IV SCH (14:00)
[2019-12-23] MEDS: AZITHROMYCIN 500MG/NS 250 ML 250 ML IV SCH (14:41)
[2019-12-23] MEDS: CEFEPIME 1GM/NS 0.9% 50 ML 50 ML IV SCH (14:42)
[2019-12-23] MEDS: LOSARTAN POTASSIUM 25 MG TAB PO SCH (14:42)
[2019-12-23] MEDS ORDERED: SODIUM CHLORIDE 0.9% 250ML 250 ML ONE (14:48)
[2019-12-23 15:10] VITALS: BP 188/88
[2019-12-23] MEDS: ACETAMINOPHEN 325 MG TAB PO PRN ×2 (15:25→21:27)
--- NOTE | 2019-12-23 16:50 | History and Physical ---
CHIEF COMPLAINT: An 84-year-old female comes in with acute shortness of breath. HISTORY OF PRESENTING ILLNESS: Ms. Estrella Mueller with a history of COPD, who was in her usual state of health until about 2 weeks prior to admission. The patient started to have some shortness of breath and was supposed to see Dr. Ruiz today. The patient could not breathe properly, hypoxia and also tachypnea increased. The patient was seen in Dr. Ruiz's office and was sent to the emergency room for COPD exacerbation. PAST MEDICAL HISTORY: 1. History of hypertension. 2. History of hyperlipidemia. 3. History of hypothyroidism. 4. History of COPD. 5. History of allergies. PAST SURGICAL HISTORY: History of radical mastectomy on the right side for cancer, gallbladder removal, cataract surgery bilaterally, knee replacements bilaterally, bladder suspension surgery, tonsillectomy and adenoidectomy and also she had a pulmonary effusions, which has drained twice. HOME MEDICATIONS: 1. Trelegy one per day for COPD. 2. Losartan 50 mg daily. 3. Amlodipine 2.5 mg daily. 4. Levothyroxine 50 mcg daily. 5. Montelukast 10 mg daily. 6. Esomeprazole 40 mg daily. 7. Combigan eye drops for glaucoma. 8. Albuterol sulfate as needed. The patient had a CT scan done in the hospital recently by Dr. Ruiz. SOCIAL HISTORY: No EtOH. Former smoker. No history of IV drug abuse either. Lives by herself in assisted living place and daughter is POA. ALLERGIES: THE PATIENT IS ALLERGIC TO CIPROFLOXACIN, ASPIRIN, PENICILLIN, HYDROMORPHONE, AND LEVOFLOXACIN. REVIEW OF SYSTEMS: Negative for chest pain. Positive for shortness of breath. No nausea, vomiting, or diarrhea. No constipation. No rectal bleeding. No hematochezia. No hematemesis. No blurry vision. No diplopia. Positive for shortness of breath. PHYSICAL EXAMINATION: GENERAL: The patient is alert and oriented x3 at this time, starting at 92% on 3 L of oxygen. VITAL SIGNS: Temperature is 98.9, pulse of 108 on arrival, respirations 32, blood pressure is 183/145. HEENT: Normocephalic and atraumatic. Pupils are reactive. CVS: S1 and S2, tachy. ABDOMEN: Soft, nontender. LUNGS: Decreased air entry into all lung judge. No rhonchi present. ABDOMEN: Soft, nontender, nondistended. EXTREMITIES: No clubbing, no cyanosis. Positive for trace edema. LABORATORY VALUES: White count is 5.76, hemoglobin of 12.2, hematocrit 37.9. Chemistry shows sodium 137, potassium 3.8, BUN of 19, and creatinine of 1.53. SEROLOGY: Coronavirus is not detected. An ABG, pH is 7.38, PO2 of 70, pCO2 of 32. IMAGING STUDIES: Chest x-ray showed normal cardiopulmonary picture. ASSESSMENT: Ms. Mueller with: 1. Chronic obstructive pulmonary disease exacerbation. 2. History of heart failure. 3. Chronic kidney disease, the patient is on IV antibiotics, IV steroids. We will go head and add Xopenex to the patient, subcu Lovenox for DVT prophylaxis. Omeprazole for her GI prophylaxis and we will keep the patient on bedrest. Further recommendation per clinical course. We will continue to monitor the patient and we will restart home medication for hyperlipidemia, hypertension, and for her hypothyroidism. MD REGINA Ruiz/FREEDOML /[id number]
[2019-12-23] MEDS ORDERED: MINERALS PO SCH (17:00)
[2019-12-23] MEDS ORDERED: VIT D3 PO SCH (17:00)
[2019-12-23] MEDS ORDERED: ONDANSETRON HCL INJ 2MG/ML 2ML 2 MG/ML VIAL IV PRN (17:00)
[2019-12-23] MEDS ORDERED: CALCIUM CARB PO SCH (17:00)
[2019-12-23] MEDS ORDERED: VIT D PO SCH (17:00)
[2019-12-23] MEDS ORDERED: [UNRECOGNIZED DRUG - OTHER] PO SCH (17:00)
[2019-12-23] MEDS: OYST-CAL-D 500MG TABLET PO SCH (17:16)
[2019-12-23] MEDS: METHYLPREDNISOLONE SOD SUCC 40 MG/ML VIAL 1ML IV SCH (17:17)
[2019-12-23] MEDS: ENOXAPARIN SOD INJ 40 MG/0.4 ML SYR SC SCH (17:17)
[2019-12-23 18:03] LABS: BILIRUBIN,URINE NEGATIVE (NEGATIVE); CLARITY,URINE SL CLOUDY (CLEAR); COLOR,URINE YELLOW (YELLOW); KETONES,URINE TRACE (NEGATIVE); LEUKOCYTE ESTERASE ,URINE NEGATIVE (NEGATIVE); NITRITE,URINE POSITIVE (NEGATIVE); PROTEIN,URINE DIPSTICK 2+ (NEGATIVE); URINE UROBILINOGEN 0.2 mg/dL (0.2 - 1)
[2019-12-23 18:17] LABS: BACTERIA,URINE RARE /HPF; RBC,URINE 0-5 /HPF (0-5); WBC,URINE (MAN) 0-5 /HPF (0-5)
[2019-12-23 19:01] LABS: CREATINE KINASE MB 3.1 ng/mL (0-5.0)
--- NOTE | 2019-12-23 19:22 | NUR ---
Patient received lying in bed. AAO x 3. Patient had no complaints of pain. Respirations even and non-labored on 2L NC. Safety measures implemented. Patient instructed to call for assistance when needed. Call light within reach.
[2019-12-23 20:00] VITALS: BP 187/89
[2019-12-23] MEDS: BRIMONIDINE/TIMOLOL (OPTH SOLN 5 ML DRPETTE OP SCH (21:27)
[2019-12-23] MEDS: LATANOPROST(OPTH) 2.5 ML BTL OP SCH (21:27)
[2019-12-23 21:30] VITALS: BP 154/89
[2019-12-23 23:00] VITALS: BP 154/89
[2019-12-24] VITALS (8 sets, daily range): BP systolic 152–175; BP diastolic 77–95
[2019-12-24] MEDS: ALBUTEROL/IPRATROPIUM 3 ML NEB NEB SCH ×5 (00:30→19:35)
[2019-12-24] MEDS: METHYLPREDNISOLONE SOD SUCC 40 MG/ML VIAL 1ML IV SCH ×3 (02:10→18:03)
--- NOTE | 2019-12-24 02:14 | NUR ---
Blood specimen sent to lab for analysis of cardiac enzymes.
[2019-12-24 02:30] LABS: CREATINE KINASE MB 3.5 ng/mL (0-5.0)
[2019-12-24] MEDS: CEFEPIME 1GM/NS 0.9% 50 ML 50 ML IV SCH ×2 (03:00→14:56)
[2019-12-24] MEDS: LEVOTHYROXINE SODIUM 50 MCG TAB PO SCH (05:49)
[2019-12-24 06:25] LABS: HEMATOCRIT 35.8 % (34.2-44.1); HEMOGLOBIN 11.7 g/dL (12.0-16.0); LYMPHOCYTES # (AUTO) 0.9 (1.0-3.2); LYMPHOCYTES % 15.1 % (18.0-39.1); MEAN CORPUSCULAR HEMOGLOBIN 32.5 pg (28-32); MEAN CORPUSCULAR HGB CONC 32.7 g/dL (31-35); MEAN CORPUSCULAR VOLUME 99.4 fL (81-99); MONOCYTES # (AUTO) 0.2 (0.2-0.8); MONOCYTES % 3.3 % (4.4-11.3); NEUTROPHILS # (AUTO) 4.6 (2.1-6.9); NEUTROPHILS % 81.2 % (38.7-80.0); PLATELET COUNT 234 x10e3/uL (140-360); RED CELL DISTRIBUTION WIDTH 13.4 % (11.7-14.4)
[2019-12-24 06:56] LABS: ALBUMIN 4.1 g/dL (3.5-5.0); ANION GAP 15.4 mmol/L (8-16); CALCIUM 9.2 mg/dL (8.4-10.2); CREATININE, SERUM 1.59 mg/dL (0.57-1.11); POTASSIUM 4.4 mmol/L (3.5-5.1)
--- NOTE | 2019-12-24 07:00 | NUR ---
Walking rounds done. BSSR given.
--- NOTE | 2019-12-24 07:35 | NUR ---
PATIENT IN BED RESTING WITH HEAD OF BED ELEVATED, NO DISTRESS NOTED. O2 IN PLACE VIA N/C. LIMB ALERT TO LEFT HAND. BED IN LOWER POSITION, CALL LIGHT AT REACH.
[2019-12-24] MEDS ORDERED: AMLODIPINE BESYLATE 10 MG TAB PO SCH (09:00)
[2019-12-24] MEDS ORDERED: MULTIVITAMIN PO SCH (09:00)
--- NOTE | 2019-12-24 09:27 | Progress Note ---
DATE: SUBJECTIVE: The patient is an 84-year-old female who came in COPD exacerbation, currently on antibiotic and getting steroids and also Xopenex treatment. No chest pain. Continues to have some shortness of breath, felt quite a bit of shortness of breath in the morning today. Otherwise, nursing staff has no complaints with her at this time. OBJECTIVE: VITAL SIGNS: Temperature is 96.4, pulse of 89, pulse of 18, not tachypneic, pulse oximetry of 98% on 2 L of oxygen. HEENT: Normocephalic, atraumatic. Pupils are reactive. CVS: S1 and S2 normal. LUNGS: Decreased air entry. Positive for some rhonchi. ABDOMEN: Soft, nontender, nondistended. EXTREMITIES: No clubbing, no cyanosis, no edema. IMAGING STUDIES: We have to review her CT scan that was done day before yesterday. Dr. Ruiz ordered that, review will be done with Dr. Ruiz. Again, continue with her regular home medications. Laboratory values are pending for today. The patient had acute on chronic renal failure yesterday. We will trend her creatinine. Lactic aspirin has been negative. ASSESSMENT AND PLAN: Continue with current management, progression noted. We will continue to monitor the patient. Discharge planning in 1 to 2 days. DVT prophylaxis, GI prophylaxis on board. MD REGINA Ruiz/MODL /[id number]
[2019-12-24] MEDS: CYANOCOBALAMIN 1,000 MCG TAB PO SCH (09:40)
[2019-12-24] MEDS: MONTELUKAST SODIUM 10 MG TAB PO SCH (09:40)
[2019-12-24] MEDS: MULTIVITAMINS/MINERALS TAB PO SCH (09:40)
[2019-12-24] MEDS: AMLODIPINE BESYLATE 5 MG TAB PO SCH (09:40)
[2019-12-24] MEDS: OMEPRAZOLE 20 MG CAP PO SCH (09:40)
[2019-12-24] MEDS: OYST-CAL-D 500MG TABLET PO SCH ×2 (09:40→17:02)
[2019-12-24] MEDS: LOSARTAN POTASSIUM 25 MG TAB PO SCH (09:40)
--- NOTE | 2019-12-24 10:55 | NUR ---
MD IN TO SEE PATIENT, NEW ORDER RECEIVED.
[2019-12-24 12:20] LABS: CHOL/HDL RATIO 2.3 (3.0-3.6)
--- NOTE | 2019-12-24 12:28 | Consultation ---
DATE OF CONSULTATION: 12/24/2019 REASON FOR CONSULTATION: Shortness of breath. CHIEF COMPLAINT: Shortness of breath. HISTORY OF PRESENT ILLNESS: This is an 84-year-old female with history of mild CAD by left heart catheterization 07/2017, COPD/emphysema, former smoker, hypertension, hypothyroidism, reflux disease, and glaucoma. The patient presents to [facility] ER with complaints of shortness of breath. Had imaging done by her specialist employee labor relations with CT scan showing emphysematous changes of the lungs. However, the patient has continued shortness of breath. Cardiology was consulted to evaluate the patient. The patient is seen in room. Reports her chronic shortness of breath has worsened in the past several weeks. In fact, she saw her specialist employee labor relations and received several rounds of steroids with improved symptoms, however, symptoms in the past 2 to 3 days have worsened, therefore came to the ER for further evaluation. Cardiac enzymes strongly negative x3 and BNP in the 30 range. The patient denies any chest pain. Her main complaint is shortness of breath. PAST MEDICAL HISTORY: COPD/emphysema, former smoker, mild CAD by left heart catheterization 07/2017, hypothyroidism, reflux disease, glaucoma, and hyperlipidemia. PAST SURGICAL HISTORY: Left mastectomy, bilateral knee surgery, cholecystectomy, bladder suspension surgery, and left heart catheterization 08/15/2017, showing 30% distal left main, 30% to 40% LAD, severe depressed EF, Takotsubo in appearance, however, repeat echo showed EF 55%. SOCIAL HISTORY: She lives alone. She is ex-smoker, quit in 1979, however, smoked for over 35 years, 1 to 2 packs per day. Alcohol use, social wine. FAMILY HISTORY: She is adopted. HOME MEDICATIONS: Include Norvasc 2.5 mg daily, Nexium 40 mg daily, levothyroxine 50 mcg daily, losartan 50 mg daily, Singulair 10 mg daily, multivitamin one tablet daily, vitamin B12 1000 mcg daily, and ProAir inhaler. ALLERGIES: PENICILLIN, CIPRO, DILAUDID, AND LEVAQUIN. REVIEW OF SYSTEMS: GENERAL: Denies any weight changes, fatigue, weakness, fevers, chills, or night sweats. SKIN: Denies any sores or rashes. HEENT: Denies any vision change, blurred vision, double vision, epistaxis, swollen neck, or sore throat. CARDIAC: Denies any chest pain. Positive for dyspnea on exertion. Denies any orthopnea, PND, or lower extremity edema. RESPIRATORY: Positive for shortness of breath. Positive for wheezing. Positive for cough. Denies any hemoptysis. GI: Reports good appetite. Denies any nausea, vomiting, diarrhea, constipation, melena, tarry or bloody stools. URINARY: Positive for frequency and urgency. Denies any dysuria or hematuria. VASCULAR: Denies any claudication. Positive for intermittent lower extremity edema. MUSCULOSKELETAL: Positive for generalized joint pains or back pain. NEUROLOGIC: Denies any numbness, tingling, weakness, paralysis, blackout or seizures. HEMATOLOGY: Denies any anemia or bruising. ENDOCRINE: Denies any heat or cold intolerance, polyuria, polydipsia, or polyphagia. PHYSICAL EXAMINATION: VITAL SIGNS: Height 74 inches, weight 146 pounds. Temperature 97.9, pulse 77, blood pressure 164/94, and pulse ox 98% on 2 L nasal cannula. LABORATORY DATA: White count 5, hemoglobin of 11.7, hematocrit 35, and platelets 234. Chemistry; sodium 138, potassium 4.4, chloride 108, bicarb 21, BUN 25, and creatinine 1.5. Lactic acid 1.1. Troponin 0.005, next 0.01, next 0.009. BNP 36. COVID PCR not detected. Chest x-ray, no acute abnormalities. CT scan showing hyperexpanded lungs with diffuse severe central lobar and paraseptal emphysematous changes, and stable 2 to 3 mm pulmonary nodules in the left and right upper lobe. ASSESSMENT: 1. Chronic obstructive pulmonary disease exacerbation. 2. Pulmonary nodules. 3. Mild coronary artery disease by left heart catheterization, 07/2017. 4. Chronic kidney disease, stage 3. 5. Hypothyroidism. 6. Hypertension. PLAN: 1. The patient presents to [facility] ER with complaints of shortness of breath, noted to be in COPD exacerbation. 2. Cardiac enzymes negative x3 and BNP within normal. Given the patient has had an ischemic evaluation with left heart catheterization 07/2017, showing mild CAD, we will just observe the patient at this time given also the patient is to have V/Q scan for any thromboembolism. 3. From cardiac standpoint, recommend observation, no nuclear stress test since patient will have V/Q scon, once better the patient can go home and followup in office as an outpatient for further cardiac workup if remains symptomatic. Thank you very much for this consult. Dictated by Jese Delgadillo NP Seen and examined González Lange MD DC/LAURA /[id number]
[2019-12-24 12:40] LABS: THYROID STIMULATING HORMONE 0.967 uIU/mL (0.350-4.940)
[2019-12-24] MEDS: AZITHROMYCIN 500MG/NS 250 ML 250 ML IV SCH (14:00)
--- NOTE | 2019-12-24 15:11 | NUR ---
PATIENT ASSISTED TO THE RESTROOM AND BACK TO BED. IV ANTIBIOTIC INFUSING ORDERED. CALL LIGHT AT REACH.
[2019-12-24] MEDS: ENOXAPARIN SOD INJ 40 MG/0.4 ML SYR SC SCH (17:02)
--- NOTE | 2019-12-24 18:10 | NUR ---
PATIENT OFF UNIT TO NUCLEAR MEDICINE.
--- NOTE | 2019-12-24 18:40 | NUR ---
PATIENT BACK TO UNIT FROM NUCLEAR MEDICINE.
[2019-12-24] MEDS: BRIMONIDINE/TIMOLOL (OPTH SOLN 5 ML DRPETTE OP SCH (20:07)
[2019-12-24] MEDS: LATANOPROST(OPTH) 2.5 ML BTL OP SCH (20:07)
--- NOTE | 2019-12-24 21:44 | Diagnostic Imaging Report ---
Perfusion Lung Scan NOTE: Lung ventilation studies with xenon are not being performed per the recommendation of the Society of Nuclear Medicine and Molecular Imaging. It is not possible to be certain that the ventilation system is adequately disinfected. Ventilation studies with Tc-99m DTPA particles is contraindicated because the delivery by nebulization generates too many water droplets from the patient's airway. Reason for exam: Acute and chronic PE. Presents with SOB and hIstory of pneumonia. Comparison: Chest radiograph 12/23/2019; CT chest w/o contrast 12/22/2019 Discussion: Ventilation images were not obtained. See note above. Perfusion images of the lungs were obtained in multiple projections following intravenous administration of approximately 5.8 mCi of Tc-99m MAA. Distribution of tracer is very patchy throughout the lungs. Tracer is relatively decreased throughout the LLL. No segmental perfusion defects of any size are present. The cardiomediastinal silhouette is unremarkable. Impression: 1. Scan findings represent a LOW probability for acute pulmonary embolic disease based on the perfusion-only PIOPED II criteria. Concurrent ventilation study would have been helpful to further characterize obstructive lung disease but would not alter the assigned probability for acute PE. 2. Although the typical findings of chronic thromboembolic pulmonary hypertension are not present, the patchy perfusion pattern does not entirely exclude this diagnosis. 3. Scan findings are compatible with diffuse parenchymal and/or obstructive lung disease. Relatively decreased perfusion to the LLL without discrete segmental perfusion defects is likely related to relatively more severe obstructive lung disease. Signed by: Dr. Caitlin Whaley M.D. on 12/24/2019 9:41 PM
--- NOTE | 2019-12-24 21:47 | NUR ---
PATIENT REFUSED BED ALARM. RISK OF FALL EXPLAINED. PATIENT STILL REFUSED.
[2019-12-25] VITALS (8 sets, daily range): BP systolic 147–181; BP diastolic 74–90
[2019-12-25] MEDS: METHYLPREDNISOLONE SOD SUCC 40 MG/ML VIAL 1ML IV SCH ×3 (02:11→17:09)
[2019-12-25] MEDS: CEFEPIME 1GM/NS 0.9% 50 ML 50 ML IV SCH ×2 (02:11→14:08)
[2019-12-25] MEDS: ALBUTEROL/IPRATROPIUM 3 ML NEB NEB SCH ×6 (03:20→23:50)
[2019-12-25] MEDS: LEVOTHYROXINE SODIUM 50 MCG TAB PO SCH (05:15)
--- NOTE | 2019-12-25 07:19 | NUR ---
PATIENT IN BED RESTING WITH NO S/S OF DISTRESS. O2 IN PLACE VIA N/C. DENIED PAIN AT THIS TIME. BED IN LOWER POSITION, CALL LIGHT AT REACH.
--- NOTE | 2019-12-25 09:06 | Progress Note ---
DATE: SUBJECTIVE: The patient is an 84-year-old female, who came in with COPD exacerbation, hypercapnia, hypoxia, currently doing better from yesterday. She continues to get Xopenex q.6 hours on schedule, on DVT prophylaxis, on antibiotics, and also on IV steroids. V/Q scan was done yesterday, was low probability study. She had a good night. No events noted. OBJECTIVE: VITAL SIGNS: Temperature 97.7, pulse of 75, respirations 20, blood pressure is 181/87 with a pulse oximetry of 98% on 2 L. HEENT: Normocephalic and atraumatic. Pupils are reactive. CVS: S1 and S2. Regular rate and rhythm. ABDOMEN: Soft, nontender. LUNGS: Decreased air entry. No rhonchi present. EXTREMITIES: No clubbing, no cyanosis, no edema. LABORATORY VALUES: White count is 5.69 yesterday with a hemoglobin of 11.7 and hematocrit of 35.8. Yesterday's CO2 was 19, BUN of 25, and creatinine of 1.59. Serology; coronavirus not detected. MICROBIOLOGY: No growth. ASSESSMENT AND PLAN: Ms. Ami De La Rosa is an 84-year-old female with: 1. Chronic obstructive pulmonary disease exacerbation, feeling better. Plan to cut down the steroids to 40 mg twice a day. 2. Antibiotics on-board includes azithromycin and cefepime. Continue the same. 3. Continue with albuterol and Atrovent q.4 hours, levothyroxine for hypothyroidism. She is on Lovenox daily for deep venous thrombosis prophylaxis and gastrointestinal prophylaxis is on-board too. Further recommendation per clinical course. Physical therapy will be started today. We will monitor the patient on ambulation and continue with current regimen. MD REGINA Ruiz/FREEDOML /[id number]
[2019-12-25] MEDS: AMLODIPINE BESYLATE 5 MG TAB PO SCH (09:13)
[2019-12-25] MEDS: OMEPRAZOLE 20 MG CAP PO SCH (09:13)
[2019-12-25] MEDS: MULTIVITAMINS/MINERALS TAB PO SCH (09:13)
[2019-12-25] MEDS: OYST-CAL-D 500MG TABLET PO SCH ×2 (09:13→17:09)
[2019-12-25] MEDS: MONTELUKAST SODIUM 10 MG TAB PO SCH (09:13)
[2019-12-25] MEDS: LOSARTAN POTASSIUM 25 MG TAB PO SCH (09:13)
[2019-12-25] MEDS: CYANOCOBALAMIN 1,000 MCG TAB PO SCH (09:13)
--- NOTE | 2019-12-25 11:31 | NUR ---
BED SIDE ECHO CARDIOGRAM COMPLETED. PATIENT SITTING AT BED SIDE READING HER NEWS PAPER. CALL LIGHT AT REACH.
--- NOTE | 2019-12-25 11:34 | NUR ---
PT'S STATUS CHANGED TO INPATIENT, EXPLAINED IMM LETTER, ORIGINAL GIVEN TO PT, COPY IS SIGNED AN DIS PLACED IN THE CHART
[2019-12-25] MEDS: AZITHROMYCIN 500MG/NS 250 ML 250 ML IV SCH (15:02)
--- NOTE | 2019-12-25 15:39 | NUR ---
PATIENT AMBULATED WITH PHYSICAL THERAPY. BACK TO RECLINING CHAIR WITH CALL LIGHT AT REACH.
[2019-12-25] MEDS: ENOXAPARIN SOD INJ 40 MG/0.4 ML SYR SC SCH (17:09)
[2019-12-25] MEDS: BRIMONIDINE/TIMOLOL (OPTH SOLN 5 ML DRPETTE OP SCH (20:51)
[2019-12-25] MEDS: LATANOPROST(OPTH) 2.5 ML BTL OP SCH (20:51)
[2019-12-26] VITALS (8 sets, daily range): BP systolic 153–167; BP diastolic 72–83
[2019-12-26] MEDS: CEFEPIME 1GM/NS 0.9% 50 ML 50 ML IV SCH ×2 (03:00→15:04)
[2019-12-26] MEDS: ALBUTEROL/IPRATROPIUM 3 ML NEB NEB SCH ×6 (04:05→23:20)
[2019-12-26] MEDS: LEVOTHYROXINE SODIUM 50 MCG TAB PO SCH (05:27)
--- NOTE | 2019-12-26 07:17 | NUR ---
PATIENT IN BED WITH HEAD OF BED ELEVATED WATCHING TV, NO DISTRESS NOTED. O2 IN PLACE VIA N/C. BED IN LOWER POSITION, CALL LIGHT AT REACH.
[2019-12-26] MEDS: MULTIVITAMINS/MINERALS TAB PO SCH (09:08)
[2019-12-26] MEDS: LOSARTAN POTASSIUM 25 MG TAB PO SCH (09:08)
[2019-12-26] MEDS: AMLODIPINE BESYLATE 5 MG TAB PO SCH (09:08)
[2019-12-26] MEDS: METHYLPREDNISOLONE SOD SUCC 40 MG/ML VIAL 1ML IV SCH ×2 (09:08→17:05)
[2019-12-26] MEDS: CYANOCOBALAMIN 1,000 MCG TAB PO SCH (09:09)
[2019-12-26] MEDS: OYST-CAL-D 500MG TABLET PO SCH ×2 (09:09→17:05)
[2019-12-26] MEDS: MONTELUKAST SODIUM 10 MG TAB PO SCH (09:09)
[2019-12-26] MEDS: OMEPRAZOLE 20 MG CAP PO SCH (09:09)
--- NOTE | 2019-12-26 09:30 | Progress Note ---
DATE: SUBJECTIVE: An 84-year-old female, who came in with COPD exacerbation. Currently, the patient is feeling better. Did walk with physical therapy. Did decrease the steroid intake. OBJECTIVE: VITAL SIGNS: Temperature is normal, pulse is 72, respirations 16, on nasal cannula by 2 L. HEENT: Normocephalic and atraumatic. Pupils are reactive. CVS: S1 and S2 normal. Regular rhythm. ABDOMEN: Nontender and nondistended. LUNGS: Decreased air entry. No rhonchi present. LABORATORY VALUES: None done today. MICROBIOLOGY: No growth. ASSESSMENT AND PLAN: Ms. Estrella Mueller with: 1. Chronic obstructive pulmonary disease exacerbation. Continue with steroids at this time, cut it down to 20 mg. The patient is improved. Antibiotics on-board; cefepime and azithromycin. 2. Albuterol/Atrovent treatments. Continue with deep venous thrombosis prophylaxis and gastrointestinal prophylaxis. Further recommendation per clinical course. Plan is to discharge the patient tomorrow if okay with consultants. MD REGINA Ruiz/FREEDOML /[id number]
--- NOTE | 2019-12-26 10:58 | NUR ---
PATIENT IV LEAKING. REMOVED WITH TIP INTACT. NEW IV 20 GAUGE INSERTED TO RIGHT FOREARM. PATIENT TOLERATED PROCEDURE WELL.
[2019-12-26] MEDS: AZITHROMYCIN 500MG/NS 250 ML 250 ML IV SCH (15:51)
--- NOTE | 2019-12-26 15:52 | NUR ---
PATIENT AMBULATED IN THE HALLWAY WITH A STAFF MEMBER. BACK IN RECLINING CHAIR WITH CALL LIGHT AT REACH.
[2019-12-26] MEDS: ENOXAPARIN SOD INJ 40 MG/0.4 ML SYR SC SCH (17:05)
--- NOTE | 2019-12-26 17:30 | NUR ---
1730 BEDSIDE PFT DONE. RESULTS PLACED IN MD BOX. Addendum: 12/26/19 at 1834 by Kathie Vasquez RT Amended: Links added.
[2019-12-26] MEDS: BRIMONIDINE/TIMOLOL (OPTH SOLN 5 ML DRPETTE OP SCH (20:16)
[2019-12-26] MEDS: LATANOPROST(OPTH) 2.5 ML BTL OP SCH (20:36)
--- NOTE | 2019-12-26 20:52 | Progress Note ---
DATE: SUBJECTIVE: The patient has improved, wheezing is improved. PHYSICAL EXAMINATION: VITAL SIGNS: Temperature 97.9, pulse of 74, and blood pressure 163/83. CHEST: Reduced air entry, but clear to auscultation, no wheezing, no crackles. HEART: S1, S2 audible. ABDOMEN: Soft. Cardiology evaluation noted. LABORATORY DATA: Reviewed. ASSESSMENT/PLAN: Ms. Mueller is an 84-year-old female my office patient has chronic obstructive pulmonary disease, currently in chronic obstructive pulmonary disease exacerbation. Continue the patient on bronchodilators and IV steroids, dose has been reduced. Otherwise, stable, in no distress. MD MAXIM Singletary/LAURA /[id number]
[2019-12-27] VITALS (7 sets, daily range): BP systolic 139–183; BP diastolic 68–85
[2019-12-27] MEDS: ALBUTEROL/IPRATROPIUM 3 ML NEB NEB SCH ×6 (03:30→23:35)
[2019-12-27] MEDS: CEFEPIME 1GM/NS 0.9% 50 ML 50 ML IV SCH ×2 (03:30→16:01)
[2019-12-27] MEDS: LEVOTHYROXINE SODIUM 50 MCG TAB PO SCH (05:12)
--- NOTE | 2019-12-27 07:01 | NUR ---
BEDSIDE SBAR REPORT RECEIVED FROM CARLOS HATFIELD, PM SHIFT. PT FOUND RESTING IN BED IN NO ACUTE DISTRESS. PT IS AAOX4 AND IS ABLE TO MAKE NEEDS KNOWN. PT WAS EDUCATED ON FALL RISK PRECAUTIONS AND PT VERBALIZED UNDERSTANDING. CALL LIGHT AND BELONGINGS PLACED NEARBY. WILL CONTINUE TO MONITOR.
--- NOTE | 2019-12-27 07:10 | NUR ---
Bedside report and walking rounds completed with oncoming nurse. Patient in bed with call light within reach. No issues or concerns noted.
[2019-12-27] MEDS: METHYLPREDNISOLONE SOD SUCC 40 MG/ML VIAL 1ML IV SCH ×2 (09:05→17:32)
[2019-12-27] MEDS: CYANOCOBALAMIN 1,000 MCG TAB PO SCH (09:06)
[2019-12-27] MEDS: MULTIVITAMINS/MINERALS TAB PO SCH (09:06)
[2019-12-27] MEDS: AMLODIPINE BESYLATE 5 MG TAB PO SCH (09:06)
[2019-12-27] MEDS: OMEPRAZOLE 20 MG CAP PO SCH (09:06)
[2019-12-27] MEDS: MONTELUKAST SODIUM 10 MG TAB PO SCH (09:06)
[2019-12-27] MEDS: OYST-CAL-D 500MG TABLET PO SCH ×2 (09:06→17:32)
[2019-12-27] MEDS: LOSARTAN POTASSIUM 25 MG TAB PO SCH (09:06)
--- NOTE | 2019-12-27 09:18 | Progress Note ---
DATE: SUBJECTIVE: The patient is an 84-year-old female who came in with acute COPD exacerbation, feeling better, still congested, wants to go home. No chest pain. No shortness of breath. OBJECTIVE: VITAL SIGNS: Temperature is 97.6, pulse of 65, respirations of 20, blood pressure is 183/79, pulse oximetry of 99%. HEENT: Normocephalic, atraumatic. Pupils reactive. CVS: S1 and S2 normal. Regular rate and rhythm. LUNGS: Decreased air entry into all lung judge. Positive rhonchi bilaterally. EXTREMITIES: No clubbing, no cyanosis, no edema. LABORATORY VALUES: None done today. ASSESSMENT: Ms. Estrella Mueller with chronic obstructive pulmonary disease exacerbation, continue on steroids, continue bronchodilators. She is stable. Check a CBC and BMP today and a chest x-ray for aggression and possible discharge today or tomorrow depending on the labs and chest x-ray. MD REGINA Ruiz/LAURA /[id number]
[2019-12-27 09:36] LABS: ANION GAP 14.9 mmol/L (8-16); CALCIUM 8.8 mg/dL (8.4-10.2); CREATININE, SERUM 1.22 mg/dL (0.57-1.11); POTASSIUM 3.9 mmol/L (3.5-5.1)
[2019-12-27] MEDS: AZITHROMYCIN 500MG/NS 250 ML 250 ML IV SCH (14:00)
--- NOTE | 2019-12-27 14:45 | NUR ---
IMM letter explained to pt. She verbalized understanding. Copy given to pt. Signed copy placed in chart.
--- NOTE | 2019-12-27 15:38 | Diagnostic Imaging Report ---
EXAMINATION: CHEST SINGLE (PORTABLE) INDICATION: Chest pain. COMPARISON: Multiple prior chest radiographs including most recent on 12/23/2019. FINDINGS: TUBES and LINES: None. LUNGS: Hyperexpanded lungs compatible with known history of COPD. There are prominent interstitial lung markings throughout both lungs. No focal consolidation identified. PLEURA: No pleural effusion. There is lucency at the right lung apex not seen on prior examinations. HEART AND MEDIASTINUM: The cardiomediastinal silhouette is mildly enlarged. BONES AND SOFT TISSUES: No acute osseous lesion. Soft tissues are unchanged. UPPER ABDOMEN: No free air under the diaphragm. IMPRESSION: 1. Findings compatible with chronic changes of COPD with prominent interstitial markings which may represent pulmonary vascular congestion or airway inflammation such as bronchitis. Developing multifocal pneumonia can have a similar appearance in the proper clinical context. 2. Lucency in the right lung apex not seen on prior examinations. This may represent skinfold, material external to the patient or small apical pneumothorax. Recommend repeat chest radiograph for further evaluation of this finding. Signed by: Rosa Paredes MD on 12/27/2019 3:35 PM
[2019-12-27] MEDS: ENOXAPARIN SOD INJ 40 MG/0.4 ML SYR SC SCH (17:32)
[2019-12-27] MEDS: BRIMONIDINE/TIMOLOL (OPTH SOLN 5 ML DRPETTE OP SCH (20:25)
[2019-12-27] MEDS: LATANOPROST(OPTH) 2.5 ML BTL OP SCH (21:26)
[2019-12-28] VITALS (7 sets, daily range): BP systolic 121–197; BP diastolic 59–114
[2019-12-28] MEDS: ALBUTEROL/IPRATROPIUM 3 ML NEB NEB SCH ×4 (03:02→14:48)
[2019-12-28] MEDS: CEFEPIME 1GM/NS 0.9% 50 ML 50 ML IV SCH (04:00)
[2019-12-28] MEDS: LEVOTHYROXINE SODIUM 50 MCG TAB PO SCH (05:25)
[2019-12-28] MEDS ORDERED: CLONIDINE HCL 0.1 MG TAB PO PRN (05:45)
--- NOTE | 2019-12-28 05:46 | NUR ---
Spoke with Dr Collado regarding elevated BP 197/69, 66, New orders received.
[2019-12-28 06:00] LABS: BASOPHILS % 0.1 % (0.0-1.0); HEMOGLOBIN 12.2 g/dL (12.0-16.0); LYMPHOCYTES # (AUTO) 1.2 (1.0-3.2); LYMPHOCYTES % 13.7 % (18.0-39.1); MEAN CORPUSCULAR HEMOGLOBIN 32.5 pg (28-32); MEAN CORPUSCULAR VOLUME 98.7 fL (81-99); MONOCYTES # (AUTO) 0.9 (0.2-0.8); MONOCYTES % 10.3 % (4.4-11.3); NEUTROPHILS # (AUTO) 6.5 (2.1-6.9); NEUTROPHILS % 75.2 % (38.7-80.0); PLATELET COUNT 194 x10e3/uL (140-360); RED BLOOD COUNT 3.75 x10e6/uL (3.6-5.1); RED CELL DISTRIBUTION WIDTH 13.2 % (11.7-14.4)
--- NOTE | 2019-12-28 06:48 | NUR ---
Spoke with Dr Collado regarding new order for amlodipine 5mg po daily, patient already on this medication. New order for amlodipine 10mg po daily.
--- NOTE | 2019-12-28 07:25 | NUR ---
Bedside report and walking rounds completed with oncoming nurse. Patient in bed with call light within reach. No issues or concerns noted.
--- NOTE | 2019-12-28 08:23 | Progress Note ---
DATE: SUBJECTIVE: An 84-year-old female, who came in with COPD exacerbation. The patient is currently feeling better. Blood pressure has been running a little high, amlodipine is increased to 10 mg. The patient is otherwise feeling well. Eager to go home. No chest pains. Positive for shortness of breath, but not more than usual, at baseline right now. OBJECTIVE: VITAL SIGNS: Temperature is 97.6, blood pressure is running in the 197/69 area. She is on 1 L of oxygen, 98% of saturation. HEENT: Normocephalic and atraumatic. Pupils are reactive. LUNGS: Decreased air entry. ABDOMEN: Soft. EXTREMITIES: No clubbing, no cyanosis, no edema. LABORATORY VALUES: From today white count is 8.6, hemoglobin of 12.2, hematocrit 37. Chemistries, sodium of 136, BUN and creatinine of 34 and 1.22, which is better. PLAN: Continue monitoring the patient. Continue with oxygen. If blood pressure normalized with increase of amlodipine, can be discharged home today, to be followed up as an outpatient. The patient's HDL, LDL noted 676 and 79 respectively, can be discharged home today if okay with consultants. MD REGINA Ruiz/LAURA /[id number]
[2019-12-28] MEDS ORDERED: AMLODIPINE BESYLATE 5 MG TAB PO SCH (09:00)
[2019-12-28] MEDS ORDERED: AMLODIPINE BESYLATE 10 MG TAB PO SCH (09:00)
--- NOTE | 2019-12-28 09:14 | Pulmonary Function Test ---
DATE OF STUDY: REFERRING PHYSICIAN: The patient of Dr. Jared Collado. FINDINGS: Moderately severe obstructive pulmonary disease. Forced vital capacity; 1.57 L, 73% of predicted. FEV1 0.91 L, 58%. FEV1/FVC ratio 58%. FEF 25/75 39%. There is no significant improvement following inhalation of bronchodilators. IMPRESSION: Moderately severe obstructive pulmonary disease. Cannot exclude concomitant restriction. MD POLINA Willis/MODL /[id number]
[2019-12-28] MEDS: METHYLPREDNISOLONE SOD SUCC 40 MG/ML VIAL 1ML IV SCH (09:21)
[2019-12-28] MEDS: OYST-CAL-D 500MG TABLET PO SCH (09:21)
[2019-12-28] MEDS: CYANOCOBALAMIN 1,000 MCG TAB PO SCH (09:21)
[2019-12-28] MEDS: LOSARTAN POTASSIUM 25 MG TAB PO SCH (09:21)
[2019-12-28] MEDS: OMEPRAZOLE 20 MG CAP PO SCH (09:21)
[2019-12-28] MEDS: MULTIVITAMINS/MINERALS TAB PO SCH (09:21)
[2019-12-28] MEDS: MONTELUKAST SODIUM 10 MG TAB PO SCH (09:21)
[2019-12-28] MEDS: AZITHROMYCIN 500MG/NS 250 ML 250 ML IV SCH (14:06)
--- NOTE | 2019-12-28 15:00 | NUR ---
CALL PLACED TO DR. CARDONA, SPOKE WITH DR. LOGAN WHO SIGNED OFF, OK TO DISCHARGE PATIENT
--- NOTE | 2019-12-28 15:00 | NUR ---
PATIENT DISCHARGED HOME VIA PRIVATE VEHICLE. PERIPHERAL IV WAS DISCONTINUED; CATHETER TIP INTACT WITHOUT RESISTANCE. DRY DRESSING APPLIED. PATIENT RECEIVED DISCHARGE PAPERWORK AND VERBALIZED UNDERSTANDING. WRITTEN PRESCRIPTION FOR PREDNISONE 40 MG DAILY X5 DAYS WAS CALLED IN BY TO PATIENT'S PHARMACY, [facility] ([phone]). PT MADE AWARE.
--- NOTE | 2019-12-28 15:30 | NUR ---
CALL PLACED TO DR. LION, WHO SIGNED OFF; OK TO DISCHARGE PATIENT. PT TO F/U WITH MD IN OFFICE IN 2 WEEKS
[2019-12-28] MEDS ORDERED: SODIUM CHLORIDE 0.9% 1000ML 1,000 ML ONE (19:59)
[2019-12-29] MEDS ORDERED: PREDNISONE 20 MG TAB PO SCH (09:00)
== END 2019-12-28 17:28 | disposition home or self-care (01) | DRG 191 ==
LOC: ER 09:50 → ERHOLD 10:08 → MED/SURG2 12:34 → OBSVTOIN 12-25 09:12
PROVIDERS: ADMIT Family Medicine; ATTEND Family Medicine
DX: J43.9 Emphysema, unspecified (principal); I13.0 Hypertensive heart and chronic kidney disease with heart failure and stage 1 through stage 4 chronic kidney disease, or unspecified chronic kidney disease; E78.5 Hyperlipidemia, unspecified; E03.9 Hypothyroidism, unspecified; Z87.891 Personal history of nicotine dependence; I25.10 Atherosclerotic heart disease of native coronary artery without angina pectoris; I50.9 Heart failure, unspecified; N18.3 Chronic kidney disease, stage 3 (moderate); Z85.3 Personal history of malignant neoplasm of breast; Z90.11 Acquired absence of right breast and nipple; Z11.59 Encounter for screening for other viral diseases
CPT/HCPCS: 36415; 36600; 71045; 78580; 80048; 80053; 80061; 81001; 82550; 82553; 82805; 83605; 83880; 84443; 84484; 85025; 87040; 87070; 87186; 87205; 93306; 94060; 94640; 99284; A9540; G0378; J0456; J0692; J1650; J2920; J2930; J7030; J7050; U0002

== ENCOUNTER 2020-11-13 14:32 | Inpatient (IN) | payer MEDICARE, BC ==
[~2020-11-13] VITALS: Ht 188 cm; Wt 66.2 kg
[~2020-11-13 14:32] MED LIST changes: +BIOTIN300 MCG PO; +LOSARTAN POTASS25 MG PO; +NYSTATIN100000 UNI PO; +VITAMIN B-121000 MCG PO
[2020-11-13] MEDS ORDERED: ALBUTEROL SULF 0.083% NEB SOLN 3 ML NEB NEB STA (15:02)
[2020-11-13] MEDS ORDERED: IPRATROPIUM BROMIDE 0.02% 2.5 ML NEB NEB STA (15:02)
[2020-11-13 15:17] LABS: BASOPHILS % 0.1 % (0.0-1.0); HEMATOCRIT 38.3 % (34.2-44.1); HEMOGLOBIN 12.3 g/dL (12.0-16.0); LYMPHOCYTES # (AUTO) 1.2 (1.0-3.2); LYMPHOCYTES % 11.7 % (18.0-39.1); MEAN CORPUSCULAR HEMOGLOBIN 31.5 pg (28-32); MEAN CORPUSCULAR HGB CONC 32.1 g/dL (31-35); MEAN CORPUSCULAR VOLUME 98.2 fL (81-99); MONOCYTES # (AUTO) 0.4 (0.2-0.8); MONOCYTES % 3.8 % (4.4-11.3); NEUTROPHILS # (AUTO) 8.2 (2.1-6.9); NEUTROPHILS % 83.8 % (38.7-80.0); PLATELET COUNT 255 x10e3/uL (140-360); RED CELL DISTRIBUTION WIDTH 13.5 % (11.7-14.4)
[2020-11-13 15:51] LABS: ALBUMIN 3.7 g/dL (3.5-5.0); ALBUMIN/GLOBULIN RATIO 0.6 (0.8-2.0); ANION GAP 14.5 mmol/L (8-16); CALCIUM 9.1 mg/dL (8.4-10.2); CREATININE, SERUM 1.51 mg/dL (0.57-1.11); POTASSIUM 3.5 mmol/L (3.5-5.1)
[2020-11-13] MEDS ORDERED: MONTELUKAST SOD10 MG PO (17:03)
[2020-11-13] MEDS ORDERED: LATANOPROST 0.7.5 ML OD (17:03)
[2020-11-13] MEDS: FUROSEMIDE INJ 10 MG/ML 4 ML VIAL IV SCH (17:19)
[2020-11-13] MEDS ORDERED: NYSTATIN SUSPENSION 5 ML UDC PO PRN (20:00)
[2020-11-13] MEDS ORDERED: ALBUTEROL SULF 0.083% NEB SOLN 3 ML NEB INH PRN (20:00)
[2020-11-13] MEDS: MONTELUKAST SODIUM 10 MG TAB PO SCH (21:00)
[2020-11-14 06:30] LABS: BASOPHILS % 0.2 % (0.0-1.0); EOSINOPHILS % 0.2 % (0.0-6.0); HEMATOCRIT 36.2 % (34.2-44.1); HEMOGLOBIN 11.4 g/dL (12.0-16.0); LYMPHOCYTES # (AUTO) 2.8 (1.0-3.2); LYMPHOCYTES % 32.4 % (18.0-39.1); MEAN CORPUSCULAR HEMOGLOBIN 31.1 pg (28-32); MEAN CORPUSCULAR HGB CONC 31.5 g/dL (31-35); MEAN CORPUSCULAR VOLUME 98.9 fL (81-99); MONOCYTES # (AUTO) 1.2 (0.2-0.8); MONOCYTES % 14.1 % (4.4-11.3); NEUTROPHILS # (AUTO) 4.5 (2.1-6.9); NEUTROPHILS % 52.6 % (38.7-80.0); PLATELET COUNT 220 x10e3/uL (140-360); RED BLOOD COUNT 3.66 x10e6/uL (3.6-5.1); RED CELL DISTRIBUTION WIDTH 13.5 % (11.7-14.4)
[2020-11-14 07:02] LABS: ALBUMIN 3.2 g/dL (3.5-5.0); ALBUMIN/GLOBULIN RATIO 0.6 (0.8-2.0); ANION GAP 14.2 mmol/L (8-16); CALCIUM 8.9 mg/dL (8.4-10.2); CREATININE, SERUM 1.54 mg/dL (0.57-1.11); POTASSIUM 3.2 mmol/L (3.5-5.1)
[2020-11-14] MEDS ORDERED: LEVOTHYROXINE SODIUM 50 MCG TAB PO SCH (07:30)
[2020-11-14] MEDS: FUROSEMIDE INJ 10 MG/ML 4 ML VIAL IV SCH (08:48)
[2020-11-14] MEDS: AMLODIPINE BESYLATE 10 MG TAB PO SCH (08:49)
[2020-11-14] MEDS: LOSARTAN POTASSIUM 25 MG TAB PO SCH (08:49)
[2020-11-14] MEDS: CYANOCOBALAMIN 1,000 MCG TAB PO SCH (08:49)
[2020-11-14] MEDS: PANTOPRAZOLE SOD 40 MG TABEC PO SCH ×2 (08:49→17:00)
[2020-11-14] MEDS ORDERED: FUROSEMIDE INJ 10 MG/ML 4 ML VIAL IV SCH (09:00)
[2020-11-14] MEDS ORDERED: AZITHROMYCIN 250 MG TAB PO ONE (09:30)
[2020-11-14 10:02] LABS: LYMPHOCYTES % (MANUAL) 35 % (19-48); MONOCYTES % (MANUAL) 10 % (3.4-9.0); NEUTROPHILS % (MANUAL) 54 % (40-74)
[2020-11-14 10:03] LABS: PLATELET ESTIMATE ADEQUATE; PLATELET MORPHOLOGY COMMENT NORMAL; RBC MORPHOLOGY COMMENT NORMAL
[2020-11-14] MEDS: METHYLPREDNISOLONE SOD SUCC 40 MG/ML VIAL 1ML IV SCH ×2 (10:24→20:35)
[2020-11-14] MEDS: IPRATROPIUM BROMIDE 0.02% 2.5 ML NEB NEB SCH (13:10)
[2020-11-14] MEDS: LEVALBUTEROL HCL SOLN NEBU 0.63 MG/3 ML NEB INH SCH (13:15)
[2020-11-14] MEDS: AZTREONAM 1 GM/NS 50 ML 50 ML IV SCH (17:04)
[2020-11-14 18:10] VITALS: BP 126/79
[2020-11-14] MEDS ORDERED: POTASSIUM CHLORIDE 20 MEQ TAB CR PO NR (19:15)
[2020-11-14 19:55] VITALS: BP 139/72
[2020-11-14 20:00] VITALS: BP 139/72
[2020-11-14] MEDS: MONTELUKAST SODIUM 10 MG TAB PO SCH (20:30)
[2020-11-14] MEDS: HEPARIN SOD (PORCINE) 5,000 UNIT/ML VIAL SC SCH (20:37)
[2020-11-14 21:00] VITALS: BP 139/72
[2020-11-14] MEDS: LATANOPROST(OPTH) 2.5 ML BTL OP SCH (21:00)
[2020-11-14] MEDS: GUAIFENESIN/CODEINE 10 ML CUP PO PRN (22:57)
[2020-11-15] VITALS (8 sets, daily range): BP systolic 106–157; BP diastolic 65–89
[2020-11-15] MEDS ORDERED: POTASSIUM CHLORIDE 20 MEQ TAB CR PO ONE (01:30)
[2020-11-15] MEDS: AZTREONAM 1 GM/NS 50 ML 50 ML IV SCH ×2 (05:50→17:30)
[2020-11-15] MEDS ORDERED: LEVOTHYROXINE SODIUM 25 MCG TABLET PO SCH (06:00)
[2020-11-15] MEDS: LEVALBUTEROL HCL SOLN NEBU 0.63 MG/3 ML NEB INH SCH ×4 (07:00→19:30)
[2020-11-15] MEDS: IPRATROPIUM BROMIDE 0.02% 2.5 ML NEB NEB SCH ×4 (07:00→19:30)
[2020-11-15] MEDS: FUROSEMIDE INJ 10 MG/ML 4 ML VIAL IV SCH (09:38)
[2020-11-15] MEDS: AZITHROMYCIN 250 MG TAB PO SCH (09:39)
[2020-11-15] MEDS: LOSARTAN POTASSIUM 25 MG TAB PO SCH (09:39)
[2020-11-15] MEDS: PANTOPRAZOLE SOD 40 MG TABEC PO SCH ×2 (09:39→17:30)
[2020-11-15] MEDS: AMLODIPINE BESYLATE 10 MG TAB PO SCH (09:39)
[2020-11-15] MEDS: CYANOCOBALAMIN 1,000 MCG TAB PO SCH (09:39)
[2020-11-15] MEDS: HEPARIN SOD (PORCINE) 5,000 UNIT/ML VIAL SC SCH ×2 (09:40→21:00)
[2020-11-15] MEDS: GUAIFENESIN/CODEINE 10 ML CUP PO PRN (14:59)
[2020-11-15] MEDS: MONTELUKAST SODIUM 10 MG TAB PO SCH (20:55)
[2020-11-15] MEDS: LATANOPROST(OPTH) 2.5 ML BTL OP SCH (20:55)
[2020-11-16] MEDS: LEVALBUTEROL HCL SOLN NEBU 0.63 MG/3 ML NEB INH SCH ×3 (01:05→13:48)
[2020-11-16] MEDS: IPRATROPIUM BROMIDE 0.02% 2.5 ML NEB NEB SCH ×3 (01:05→13:48)
[2020-11-16] MEDS: AZTREONAM 1 GM/NS 50 ML 50 ML IV SCH ×2 (05:00→15:36)
[2020-11-16 05:56] VITALS: BP 104/57
[2020-11-16] MEDS ORDERED: METHYLPREDNISOLONE SOD SUCC 40 MG/ML VIAL 1ML IV SCH (07:30)
[2020-11-16 08:00] VITALS: BP 147/73
[2020-11-16 08:05] VITALS: BP 147/73
[2020-11-16] MEDS: LOSARTAN POTASSIUM 25 MG TAB PO SCH (08:41)
[2020-11-16] MEDS: FUROSEMIDE INJ 10 MG/ML 4 ML VIAL IV SCH (08:41)
[2020-11-16] MEDS: AZITHROMYCIN 250 MG TAB PO SCH (08:41)
[2020-11-16] MEDS: CYANOCOBALAMIN 1,000 MCG TAB PO SCH (08:41)
[2020-11-16] MEDS: PANTOPRAZOLE SOD 40 MG TABEC PO SCH ×2 (08:41→15:36)
[2020-11-16] MEDS: AMLODIPINE BESYLATE 10 MG TAB PO SCH (08:41)
[2020-11-16] MEDS: HEPARIN SOD (PORCINE) 5,000 UNIT/ML VIAL SC SCH (09:00)
[2020-11-16 12:00] VITALS: BP 146/68
[2020-11-16] MEDS ORDERED: SODIUM CHLORIDE 0.9% 250ML 250 ML ONE (15:28)
[2020-11-16 15:34] VITALS: BP 100/60
[2020-11-16] MEDS ORDERED: doxycline PO (16:35)
[2020-11-16] MEDS ORDERED: PREDNISONE20 MG PO (16:35)
[2020-11-16 17:52] VITALS: BP 106/56
== END 2020-11-16 18:18 | disposition home or self-care (01) | DRG 193 ==
LOC: ER 14:58 → ERHOLD 16:41 → MED/SURG3 11-14 18:13
PROVIDERS: ADMIT Family Medicine; ATTEND Family Medicine
DX: J18.9 Pneumonia, unspecified organism (principal); J96.21 Acute and chronic respiratory failure with hypoxia; J43.9 Emphysema, unspecified; E03.9 Hypothyroidism, unspecified; Z88.0 Allergy status to penicillin; I25.10 Atherosclerotic heart disease of native coronary artery without angina pectoris; E78.5 Hyperlipidemia, unspecified; Z87.891 Personal history of nicotine dependence; Z85.3 Personal history of malignant neoplasm of breast; I11.0 Hypertensive heart disease with heart failure; I50.9 Heart failure, unspecified
CPT/HCPCS: 36415; 71045; 71250; 80053; 83880; 84443; 84484; 85025; 87040; 93005; 93306; 94640; 96367; 96372; 96376; 99284; J1644; J1940; J2920; J7050; U0002

== ENCOUNTER 2021-02-01 11:27 | Emergency (ER) | payer MEDICARE, BC ==
[~2021-02-01] VITALS: Ht 370.8 cm; Wt 66.2 kg
[~2021-02-01 11:27] MED LIST changes: +LATANOPROST 0.7.5 ML OD; +PREDNISONE20 MG PO; +doxycline PO
[2021-02-01 11:56] LABS: BASOPHILS # (AUTO) 0.1 (0.0-0.1); BASOPHILS % 0.6 % (0.0-1.0); EOSINOPHILS # (AUTO) 0.1 (0.0-0.4); HEMATOCRIT 34.2 % (34.2-44.1); LYMPHOCYTES # (AUTO) 1.4 (1.0-3.2); LYMPHOCYTES % 17.9 % (18.0-39.1); MEAN CORPUSCULAR HEMOGLOBIN 31.9 pg (28-32); MEAN CORPUSCULAR HGB CONC 32.2 g/dL (31-35); MEAN CORPUSCULAR VOLUME 99.1 fL (81-99); MONOCYTES # (AUTO) 0.9 (0.2-0.8); MONOCYTES % 10.7 % (4.4-11.3); NEUTROPHILS # (AUTO) 5.5 (2.1-6.9); NEUTROPHILS % 69.4 % (38.7-80.0); PLATELET COUNT 203 x10e3/uL (140-360); RED BLOOD COUNT 3.45 x10e6/uL (3.6-5.1); RED CELL DISTRIBUTION WIDTH 14.9 % (11.7-14.4)
[2021-02-01 12:05] LABS: INR 0.9; PARTIAL THROMBOPLASTIN TIME 23.4 seconds (23.8-35.5); PROTHROMBIN TIME 12.5 seconds (11.9-14.5)
[2021-02-01 12:15] LABS: ALBUMIN 3.5 g/dL (3.5-5.0); ALBUMIN/GLOBULIN RATIO 0.7 (0.8-2.0); ANION GAP 14.7 mmol/L (8-16); CALCIUM 8.7 mg/dL (8.4-10.2); CREATININE, SERUM 1.42 mg/dL (0.57-1.11); POTASSIUM 3.7 mmol/L (3.5-5.1)
[2021-02-01] MEDS ORDERED: ONDANSETRON HCL INJ 2MG/ML 2ML 2 MG/ML VIAL IV STA (12:21)
[2021-02-01] MEDS ORDERED: SODIUM CHLORIDE 0.9% 1000ML 1,000 ML IV STA (12:21)
[2021-02-01 12:23] LABS: CREATINE KINASE MB 0.8 ng/mL (0-5.0)
[2021-02-01 14:04] LABS: CLARITY,URINE CLEAR (CLEAR); COLOR,URINE YELLOW (YELLOW); KETONES,URINE NEGATIVE (NEGATIVE); LEUKOCYTE ESTERASE ,URINE NEGATIVE (NEGATIVE); NITRITE,URINE NEGATIVE (NEGATIVE); PROTEIN,URINE DIPSTICK 2+ (NEGATIVE); URINE UROBILINOGEN 0.2 mg/dL (0.2 - 1)
[2021-02-01 14:15] LABS: RBC,URINE 0-5 /HPF (0-5); WBC,URINE (MAN) 0-5 /HPF (0-5)
[2021-02-01 14:16] LABS: MUCUS,URINE FEW (RARE)
[2021-02-01] MEDS ORDERED: ONDANSETRON ODT4 MG PO (15:51)
[2021-02-01 16:05] VITALS: BP 160/87
== END 2021-02-01 16:14 | disposition home or self-care (01) ==
LOC: ER 11:32
DX: R42 Dizziness and giddiness (principal); I10 Essential (primary) hypertension; E03.9 Hypothyroidism, unspecified; J44.9 Chronic obstructive pulmonary disease, unspecified; I50.9 Heart failure, unspecified; J45.909 Unspecified asthma, uncomplicated; H40.9 Unspecified glaucoma
CPT/HCPCS: 36415; 70450; 71045; 80053; 81001; 82550; 82553; 83880; 84484; 85025; 85610; 85730; 93005; 99284; J2405; J7030

== ENCOUNTER 2021-08-22 12:54 | Inpatient (IN) | payer MEDICARE, BC ==
[~2021-08-22] VITALS: Ht 370.8 cm; Wt 66.4 kg
[~2021-08-22 12:54] MED LIST changes: +ONDANSETRON ODT4 MG PO
[2021-08-22 13:24] LABS: BASOPHILS % 0.1 % (0.0-1.0); EOSINOPHILS % 0.1 % (0.0-6.0); HEMATOCRIT 39.4 % (34.2-44.1); HEMOGLOBIN 12.7 g/dL (12.0-16.0); LYMPHOCYTES # (AUTO) 1.1 (1.0-3.2); LYMPHOCYTES % 6.6 % (18.0-39.1); MEAN CORPUSCULAR HEMOGLOBIN 32.2 pg (28-32); MEAN CORPUSCULAR HGB CONC 32.2 g/dL (31-35); MONOCYTES # (AUTO) 0.9 (0.2-0.8); MONOCYTES % 5.3 % (4.4-11.3); NEUTROPHILS # (AUTO) 15.2 (2.1-6.9); NEUTROPHILS % 87.5 % (38.7-80.0); PLATELET COUNT 266 x10e3/uL (140-360); RED BLOOD COUNT 3.94 x10e6/uL (3.6-5.1); RED CELL DISTRIBUTION WIDTH 15.4 % (11.7-14.4)
[2021-08-22 13:30] LABS: INR 1.01; PARTIAL THROMBOPLASTIN TIME 26.3 seconds (23.8-35.5); PROTHROMBIN TIME 14.2 seconds (11.9-14.5)
[2021-08-22] MEDS ORDERED: METHYLPREDNISOLONE SOD SUCC 125 MG/2ML VIAL IV ONE (13:30)
[2021-08-22] MEDS ORDERED: SODIUM CHLORIDE 0.9% 500ML 500 ML IV ONE (13:30)
[2021-08-22 13:39] LABS: ALANINE AMINOTRANSFERASE 14 IU/L (0-55); ALBUMIN/GLOBULIN RATIO 0.5 (0.8-2.0); ALKALINE PHOSPHATASE 68 IU/L (40-150); ANION GAP 12.1 mmol/L (8-16); BLOOD UREA NITROGEN 30 mg/dL (7-26); BUN/CREATININE RATIO 21 (6-25); CALCIUM 8.8 mg/dL (8.4-10.2); CARBON DIOXIDE 22 mmol/L (22-29); CHLORIDE 105 mmol/L (98-107); CREATINE KINASE 10 IU/L (29-168); CREATININE, SERUM 1.46 mg/dL (0.57-1.11); GLUCOSE 106 mg/dL (74-118); MAGNESIUM 2.2 MG/DL (1.3-2.1); POTASSIUM 4.1 mmol/L (3.5-5.1); SODIUM 135 mmol/L (136-145)
[2021-08-22] MEDS ORDERED: ACETAMINOPHEN 325 MG TAB PO ONE (14:15)
[2021-08-22] MEDS ORDERED: ACETAMINOPHEN 325 MG TAB ONE (14:28)
[2021-08-22] MEDS ORDERED: SODIUM CHLORIDE 0.9% 1000ML 1,000 ML IV ONE (14:30)
[2021-08-22] MEDS ORDERED: ALBUTEROL SULFATE HFA 8GM INHALATION AEROSOL INH PRN (14:30)
[2021-08-22] MEDS ORDERED: ACETAMINOPHEN 325 MG TAB PO PRN (15:30)
[2021-08-22] MEDS: DEXAMETHASONE SOD PHOS 10 MG/1 ML VIAL IV SCH (16:22)
[2021-08-22 16:58] VITALS: BP 147/66
[2021-08-22 17:00] VITALS: BP 147/66
[2021-08-22] MEDS ORDERED: NYSTATIN SUSPENSION 5 ML UDC PO PRN (17:15)
[2021-08-22] MEDS: ASCORBIC ACID 500 MG TAB PO SCH (18:37)
[2021-08-22] MEDS: ENOXAPARIN SOD INJ 40 MG/0.4 ML SYR SC SCH (18:37)
[2021-08-22] MEDS ORDERED: GABAPENTIN 300 MG CAP PO PRN (18:45)
[2021-08-22] MEDS ORDERED: FUROSEMIDE INJ 10 MG/ML 4 ML VIAL IV ONE (19:15)
[2021-08-22] MEDS ORDERED: LATANOPROST OD SCH (21:00)
[2021-08-22] MEDS ORDERED: [UNRECOGNIZED DRUG - OTHER] OD SCH (21:00)
[2021-08-22 21:06] LABS: CREATINE KINASE 9 IU/L (29-168)
[2021-08-22] MEDS: MONTELUKAST SODIUM 10 MG TAB PO SCH (23:02)
[2021-08-22] MEDS: LATANOPROST(OPTH) 2.5 ML BTL OD SCH (23:02)
[2021-08-22 23:57] VITALS: BP 128/65
[2021-08-22 23:59] VITALS: BP 128/65
[2021-08-23] VITALS (7 sets, daily range): BP systolic 136–175; BP diastolic 60–90
[2021-08-23 06:13] LABS: BASOPHILS % 0.1 % (0.0-1.0); HEMATOCRIT 35.4 % (34.2-44.1); HEMOGLOBIN 11.4 g/dL (12.0-16.0); LYMPHOCYTES # (AUTO) 1.1 (1.0-3.2); LYMPHOCYTES % 6.4 % (18.0-39.1); MEAN CORPUSCULAR HEMOGLOBIN 32.3 pg (28-32); MEAN CORPUSCULAR HGB CONC 32.2 g/dL (31-35); MEAN CORPUSCULAR VOLUME 100.3 fL (81-99); MONOCYTES # (AUTO) 0.4 (0.2-0.8); MONOCYTES % 2.1 % (4.4-11.3); NEUTROPHILS # (AUTO) 15.1 (2.1-6.9); NEUTROPHILS % 90.7 % (38.7-80.0); PLATELET COUNT 219 x10e3/uL (140-360); RED BLOOD COUNT 3.53 x10e6/uL (3.6-5.1); RED CELL DISTRIBUTION WIDTH 15.2 % (11.7-14.4)
[2021-08-23 06:43] LABS: ALBUMIN 2.5 g/dL (3.5-5.0); ALBUMIN/GLOBULIN RATIO 0.5 (0.8-2.0); CALCIUM 7.6 mg/dL (8.4-10.2); CREATININE, SERUM 1.39 mg/dL (0.57-1.11)
[2021-08-23] MEDS: BUDESONIDE/FORMOTEROL FUMARATE 80/4.5MCG 6.9 GM INH AEROSOL IH SCH ×2 (07:00→19:28)
[2021-08-23 07:04] LABS: CREATINE KINASE MB 0.4 ng/mL (0-5.0)
[2021-08-23] MEDS ORDERED: MULTIVITAMIN PO SCH (09:00)
[2021-08-23] MEDS: LOSARTAN POTASSIUM 25 MG TAB PO SCH (09:00)
[2021-08-23] MEDS: PANTOPRAZOLE SOD 40 MG TABEC PO SCH ×2 (09:19→17:31)
[2021-08-23] MEDS: DEXAMETHASONE SOD PHOS 10 MG/1 ML VIAL IV SCH (09:19)
[2021-08-23] MEDS: MULTIVITAMINS/MINERALS TAB PO SCH (09:19)
[2021-08-23] MEDS: CYANOCOBALAMIN 1,000 MCG TAB PO SCH (09:20)
[2021-08-23] MEDS: ASCORBIC ACID 500 MG TAB PO SCH ×2 (09:20→17:31)
[2021-08-23] MEDS: ZINC SULFATE 50 MG CAP PO SCH (09:20)
[2021-08-23] MEDS ORDERED: SODIUM CHLORIDE 0.9% 250ML 250 ML ONE (09:34)
[2021-08-23] MEDS ORDERED: FUROSEMIDE INJ 10 MG/ML 2 ML VIAL IV ONE (10:30)
[2021-08-23 15:32] LABS: CREATINE KINASE 10 IU/L (29-168)
[2021-08-23] MEDS: ENOXAPARIN SOD INJ 40 MG/0.4 ML SYR SC SCH (17:32)
[2021-08-23] MEDS: MONTELUKAST SODIUM 10 MG TAB PO SCH (20:30)
[2021-08-23] MEDS: LATANOPROST(OPTH) 2.5 ML BTL OD SCH (20:30)
[2021-08-24] VITALS: BP 163/81
[2021-08-24 08:10] VITALS: BP 158/55
[2021-08-24 08:31] VITALS: BP 158/55
[2021-08-24] MEDS: DEXAMETHASONE SOD PHOS 10 MG/1 ML VIAL IV SCH (10:35)
[2021-08-24] MEDS: BUDESONIDE/FORMOTEROL FUMARATE 80/4.5MCG 6.9 GM INH AEROSOL IH SCH (10:36)
[2021-08-24] MEDS: MULTIVITAMINS/MINERALS TAB PO SCH (10:36)
[2021-08-24] MEDS: PANTOPRAZOLE SOD 40 MG TABEC PO SCH ×2 (10:36→17:08)
[2021-08-24] MEDS: CYANOCOBALAMIN 1,000 MCG TAB PO SCH (10:36)
[2021-08-24] MEDS: ASCORBIC ACID 500 MG TAB PO SCH ×2 (10:36→17:08)
[2021-08-24] MEDS: LOSARTAN POTASSIUM 25 MG TAB PO SCH (10:36)
[2021-08-24] MEDS: ZINC SULFATE 50 MG CAP PO SCH (10:36)
[2021-08-24 12:37] VITALS: BP 146/80
[2021-08-24 16:48] VITALS: BP 137/59
[2021-08-24] MEDS: ENOXAPARIN SOD INJ 40 MG/0.4 ML SYR SC SCH (17:08)
[2021-08-24] MEDS ORDERED: AZITHROMYCIN250 MG PO (20:15)
[2021-08-24] MEDS ORDERED: DECADRON4 M1 PO (20:16)
[2021-08-24] MEDS ORDERED: SYMBICORT 16010.2 GM INH (20:16)
[2021-08-24 21:01] VITALS: BP 139/69
== END 2021-08-24 21:53 | disposition home or self-care (01) | DRG 177 ==
LOC: ER 13:07 → ERHOLD 14:25 → MED/SURG3 16:38
PROVIDERS: ADMIT Family Medicine; ATTEND Family Medicine
PROC: 3E0333Z Introduction of Anti-inflammatory into Peripheral Vein, Percutaneous Approach (ICD-10-PCS; principal; 2021-08-22)
PROC: 3E03329 Introduction of Other Anti-infective into Peripheral Vein, Percutaneous Approach (ICD-10-PCS; 2021-08-22)
DX: U07.1 COVID-19 (principal); J96.01 Acute respiratory failure with hypoxia; J44.1 Chronic obstructive pulmonary disease with (acute) exacerbation; I50.32 Chronic diastolic (congestive) heart failure; E87.70 Fluid overload, unspecified; Z96.653 Presence of artificial knee joint, bilateral; Z99.81 Dependence on supplemental oxygen; Z87.891 Personal history of nicotine dependence; Z88.1 Allergy status to other antibiotic agents; Z88.0 Allergy status to penicillin
CPT/HCPCS: 36415; 71045; 80053; 82550; 82553; 83735; 83880; 84484; 85025; 85610; 85730; 86141; 87040; 93005; 94799; 97139; 99251; 99284; J0456; J0696; J1100; J1650; J1940; J2930; J7030; J7040; J7050

== ENCOUNTER → 2022-09-30 | Outpatient (CLI) | payer MEDICARE, BC ==
[~2022-09-30] MED LIST changes: +AZITHROMYCIN250 MG PO; +DECADRON4 M1 PO; +SYMBICORT 16010.2 GM INH
== END ==
LOC: RAD 08:19
PROVIDERS: ATTEND Internal Medicine
DX: J44.1 Chronic obstructive pulmonary disease with (acute) exacerbation (principal)
CPT/HCPCS: 71046

== ENCOUNTER → 2023-10-02 | Outpatient (REF) | payer MEDICARE, BC ==
[~2023-10-02] MED LIST changes: +LIDOCAINE HCL 1% LOCAL INJ 20 ML VIAL ONE
== END ==
LOC: US 12:30
PROVIDERS: ATTEND Family Medicine
DX: C50.211 Malignant neoplasm of upper-inner quadrant of right female breast (principal)
CPT/HCPCS: 19083; 77065; 88305; 88342; A4648; J2001

== ENCOUNTER 2024-02-24 15:53 | Emergency (ER) | payer MEDICARE, BC ==
[~2024-02-24] VITALS: Ht 370.8 cm; Wt 66.2 kg
[~2024-02-24 15:53] MED LIST changes: -LIDOCAINE HCL 1% LOCAL INJ 20 ML VIAL ONE
[2024-02-24 16:59] VITALS: TEMP 98.7
[2024-02-24 17:41] LABS: BASOPHILS % 0.4 % (0.0-1.0); EOSINOPHILS % 0.2 % (0.0-6.0); HEMOGLOBIN 8.8 g/dL (12.0-16.0); LYMPHOCYTES # (AUTO) 1.2 (1.0-3.2); LYMPHOCYTES % 12.4 % (18.0-39.1); MEAN CORPUSCULAR HEMOGLOBIN 29.1 pg (28-32); MEAN CORPUSCULAR HGB CONC 30.3 g/dL (31-35); MONOCYTES % 10.6 % (4.4-11.3); NEUTROPHILS # (AUTO) 7.2 (2.1-6.9); PLATELET COUNT 219 x10e3/uL (140-360); RED BLOOD COUNT 3.02 x10e6/uL (3.6-5.1); RED CELL DISTRIBUTION WIDTH 23.1 % (11.7-14.4); WHITE BLOOD COUNT 9.53 x10e3/uL (4.8-10.8)
[2024-02-24 18:02] VITALS: PULSE 72; RESP 18
[2024-02-24 18:02] LABS: ALBUMIN 3.4 g/dL (3.5-5.0); ALBUMIN/GLOBULIN RATIO 0.7 (0.8-2.0); ANION GAP 12.3 mmol/L (8-16); BILIRUBIN,TOTAL 0.4 mg/dL (0.2-1.2); CALCIUM 9.4 mg/dL (8.4-10.2); CREATININE, SERUM 1.07 mg/dL (0.57-1.11); TOTAL PROTEIN 8.6 g/dL (6.5-8.1)
[2024-02-24] MEDS: KETOROLAC TROMETHAMINE 30 MG/ML VIAL IV STA (18:04)
[2024-02-24] MEDS: CYCLOBENZAPRINE HCL 10 MG TAB PO ONE (18:04)
[2024-02-24 18:06] LABS: POTASSIUM 3.3 mmol/L (3.5-5.1)
[2024-02-24] MEDS ORDERED: METHOCARBAMOL750 MG PO (18:13)
[2024-02-24 19:04] VITALS: BP 148/74; PULSE 71; RESP 19; TEMP 98.1; O2SAT 100
== END 2024-02-24 19:32 | disposition home or self-care (01) ==
LOC: ER 16:54
DX: M54.12 Radiculopathy, cervical region (principal); M53.82 Other specified dorsopathies, cervical region; I10 Essential (primary) hypertension; J44.9 Chronic obstructive pulmonary disease, unspecified; I50.9 Heart failure, unspecified; H40.9 Unspecified glaucoma; J45.909 Unspecified asthma, uncomplicated; Z85.3 Personal history of malignant neoplasm of breast; Z79.60 Long term (current) use of unspecified immunomodulators and immunosuppressants
CPT/HCPCS: 36415; 70450; 72125; 80053; 85025; 99284; J1885